=== PATIENT | male | born 1950 | race Caucasian/White ===

== ENCOUNTER 2020-05-28 13:40 | Outpatient (REF) | payer OTHER, SELFPAY | END 2020-05-28 13:41 | disposition home or self-care (01) | LOC: HO.LAB 13:40 | PROVIDERS: Visit Provider Internal Medicine | DX: Z20.828 Contact with and (suspected) exposure to other viral communicable diseases (principal) | CPT/HCPCS: 87635 ==

== ENCOUNTER → 2020-05-29 09:35 | Outpatient (BNVA) | payer OTHER, SELFPAY | PROVIDERS: PCP Family Medicine; Referring Provider Family Medicine; Visit Provider Internal Medicine Endocrinology, Diabetes & Metabolism | DX: Z13.89 Encounter for screening for other disorder (principal) | CPT/HCPCS: 99214 ==

== ENCOUNTER 2020-06-06 21:39 | Inpatient (IN) | payer OTHER, SELFPAY ==
[2020-06-06 21:45] VITALS: BP 113/40; BP 130/86; PULSE 77; RESP 26; TEMP 36.4; O2SAT 75; O2SAT 96; BMI 39.2
--- NOTE | 2020-06-06 21:46 | ECG_ITS ---
Test Reason : REPEAT Blood Pressure : / mmHG Vent. Rate : 077 BPM Atrial Rate : 077 BPM P-R Int : 194 ms QRS Dur : 086 ms QT Int : 380 ms P-R-T Axes : 078 054 046 degrees QTc Int : 430 ms Normal sinus rhythm Low voltage QRS Nonspecific T wave abnormality Abnormal ECG When compared with ECG of [id number] Nonspecific T wave abnormality now evident in Inferior leads Lateral leads Referred By: Ananya Vance Electronically Signed By:ZAY VALADEZ MD
--- NOTE | 2020-06-06 21:47 | XR_ITS ---
EXAMINATION: XR CHEST CLINICAL INFORMATION: Shortness of breath COMPARISON: Chest x-ray 06/18/2015 TECHNIQUE: Frontal view of the chest was obtained. 11:10 PM FINDINGS: Extensive bilateral airspace opacities throughout the lungs. The airspace disease is worse in the right and left lung however. There is no pleural effusion or pneumothorax. Heart size is enlarged. There are calcifications of aorta. XR/XR chest 1V IMPRESSION: Extensive bilateral airspace disease. This is most consistent with inflammatory or infectious etiology.
--- NOTE | 2020-06-06 21:51 | ED.SOB ---
HPI - SOB/Dyspnea General Chief Complaint: General Medical Stated Complaint: sob and covid Time Seen by Provider: 06/06/20 21:46 Source: patient and historic interpreter Mode of arrival: EMS Limitations: no limitations History of Present Illness HPI Narrative: This is a 70-year-old male with significant past medical history of CKD 3, hypertension, diabetes, COPD (does not use home oxygen ) and diagnosed with COVID-19 1 week ago who is brought in by EMS for acute worsening of shortness of breath since yesterday without associated fever but experiencing chills, denies nausea /vomiting / chest pain/ palpitations/abdominal pain. EMS states that on arrival patient was noted to be below 55% and was henao in appearance with some improvement in oxygenation to the 70s with 100% non-rebreather. Related Data Home Medications Medication Instructions Recorded Confirmed albuterol sulfate 90 mcg/actuation 1 puff INHALATION Q6H PRN 05/29/20 06/06/20 aerosol inhaler aspirin 81 mg tablet,delayed 81 mg PO DAILY 05/29/20 06/06/20 release atorvastatin 40 mg tablet 40 mg PO BEDTIME 05/29/20 06/06/20 blood sugar diagnostic #10 ea 05/29/20 05/29/20 calcium carbonate 600 mg (1,500 1 tab PO BID 05/29/20 06/06/20 mg)-vitamin D3 400 unit tablet carvedilol 12.5 mg tablet 12.5 mg PO BID 05/29/20 06/06/20 furosemide 20 mg tablet 20 mg PO DAILY 05/29/20 06/06/20 gabapentin 100 mg capsule 100 mg PO BID 05/29/20 06/06/20 lisinopril 5 mg tablet 5 mg PO DAILY 05/29/20 06/06/20 montelukast 10 mg tablet 10 mg PO BEDTIME 05/29/20 06/06/20 mycophenolate sodium 180 mg 540 mg PO BID 05/29/20 06/06/20 tablet,delayed release nifedipine 30 mg tablet,extended 30 mg PO BID 05/29/20 06/06/20 release 24 hr oxycodone 5 mg tablet 5 mg PO TID PRN 05/29/20 06/06/20 sennosides 8.6 mg tablet 17.2 mg PO DAILY 05/29/20 06/06/20 sertraline 100 mg tablet 100 mg PO DAILY 05/29/20 06/06/20 tacrolimus 1 mg capsule 3 mg PO DAILY 05/29/20 05/29/20 trazodone 50 mg tablet 50 mg PO BEDTIME 05/29/20 06/06/20 Previous Rx's Medication Instructions Recorded insulin lispro 100 unit/mL See Rx Instructions SUBCUT DAILY 05/07/20 subcutaneous solution 30 Days #30 ml testosterone cypionate 200 mg/mL 100 mg IM Q2W 30 Days #1.5 ml 05/28/20 intramuscular oil Allergies Allergy/AdvReac Type Severity Reaction Status Date / Time No Known Allergies Allergy Unverified 04/19/20 17:29 Crestor Allergy Unknown Uncoded 03/27/20 00:00 latex Allergy Unknown Uncoded 03/27/20 00:00 metal Allergy Unknown Uncoded 03/27/20 00:00 Review of Systems Review of Systems: Pertinent positives and negatives as stated in HPI 10 point review of systems is otherwise negative. 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 Obesity (BMI 30-39.9) Osteoporosis Surgical History History of open reduction and internal fixation (ORIF) procedure Hx of kidney transplant Family History Family History Father Diabetes Mother CVA (cerebral vascular accident) Social History Social History Alcohol intake: unknown Smoking Status: Never smoker Smoked in Last 30 Days: No Use of substances other than those prescribed or required for medical reasons: No Advance Directives: No Advance Directives Information Provided: Yes Physical Exam Vital Signs: Vital Signs: Vital Signs Temp Pulse Resp BP Pulse Ox 06/06/20 22:43 77 22 H 116/42 L 96 06/06/20 22:25 28 H 06/06/20 21:45 97.6 F 77 26 H 113/40 L 96 Body Mass Index 39.2 VITAL SIGNS: Reviewed. GENERAL: Well developed, well nourished, in no acute distress. HEAD: Normocephalic/atraumatic, EYES: PERRLA, EOMI intact without pain, no nystagmus/pallor/icterus noted EARS: Ext canals without abnormality, TMs non-bulging and non-erythematous NOSE: Nares patent bilateral OROPHARYNX: no oral lesions noted, posterior pharynx clear and non-erythematous without noted tonsillar enlargement/erythema/exudates NECK: Supple, no adenopathy LUNGS: grunting, accessory muscle use, tachypnea,+adventitious sounds and accessory muscle use. SpO2<77>On 100% non-rebreather CARDIOVASCULAR: Regular rate and rhythm without noted murmurs, no JVD or lower extremity edema. ABDOMEN: Soft, non-tender, non-distended with bowel sounds. No rigidity. No guarding. No palpable masses or hernias noted MUSCULOSKELETAL: No tenderness, deformities, or effusions noted on gross inspection. EXTREMITIES: No cyanosis, clubbing or edema; LUE: AV fistula that is not currently being used. SKIN: Inspection of the skin reveals no rashes, ulcerations, jaundice, pallor, or petechiae. NEUROLOGIC: Alert and oriented x 4. Strength and sensation to light touch were grossly intact x 4. Course Course Course Narrative: This is a 70-year-old male with history and clinical presentation most concerning for COPD exacerbation likely secondary to COVID-19 infection and will proceed with following sepsis bundle as well as placing patient on BiPAP. 2246: On review of all investigations up to this point without evidence to suggest bacterial in nature but there is a noted lymphocytosis and VBG shows pCO2 is 45 so this is also unlikely to be COPD exacerbation. 2248: I discussed the case with the nuisance wildlife specialist, Dr. Andrade, who is agreeable for admission to the ICU and requests D-dimer and ferritin levels in addition to other labs. Review of troponin is likely secondary to demand ischemia secondary to hypoxia. In addition, review of hyperkalemia is noted to be in conjunction with low sodium and chloride levels and will consider fluid resuscitation and recheck potassium levels. Hypomagnesemia will be repleted with 1 g of magnesium sulfate. MDM - SOB/Dyspnea Lab Data Result diagrams: 06/06/20 22:08 06/06/20 22:08 Labs: Lab Results 06/06/20 06/06/20 06/06/20 Range/Units 21:45 22:08 22:08 WBC 9.7 (4.8-10.8) X10*3/uL RBC 3.40 L (4.60-5.80) X10*6/uL Hgb 9.7 L (14.0-18.0) g/dl Hct 31.0 L (42-52) % MCV 91.2 (80-98) fL MCH 28.5 (27.0-33.0) pg MCHC 31.3 (31.0-36.0) g/dl RDW 13.2 (11.0-16.0) % Plt Count 259 (160-400) X10*3/uL MPV 9.0 L (9.4-12.4) fL Immature Gran % (Auto) 0.5 H (0.0-0.4) % Neut % (Auto) 92.7 H (45-73) % Lymph % (Auto) 2.8 L (20-40) % [place] % (Auto) 3.9 (2-11) % Eos % (Auto) 0.1 (0-4) % Baso % (Auto) 0.0 (0-2) % Lymph # (Auto) 0.3 L (1.2-4.9) X10*3/uL [place] # (Auto) 0.4 (0.1-1.2) X10*3/uL Eos # (Auto) 0.0 (0.0-0.4) X10*3/uL Baso # (Auto) 0.0 (0.0-0.2) X10*3/uL Abs Immat Gran (auto) 0.05 H (0.00-0.03) X10*3/uL Absolute Neuts (auto) 8.9 H (2.0-8.3) X10*3/uL Absolute Nucleated RBC 0.000 (0.0-0.012) X10*3/uL Nucleated RBC % (auto) 0.0 (0.0-0.2) /100WBC Smear Tech's Comments VERIFIED VBG pH (7.32-7.43) VBG pCO2 mmhg VBG Oxygen Liters/Min VBG pO2 mmhg VBG HCO3 mmol/L VBG O2 Saturation % VBG Base Excess mmol/L Sodium 128 L (135-145) mmol/L Potassium 6.0 H* (3.3-5.1) mmol/l Chloride 96 (96-108) mmol/L Carbon Dioxide 20 L (22-29) mmol/L Anion Gap 18 (12-20) BUN 49 H (9-16) mg/dL Creatinine 3.21 H (0.5-1.4) mg/dL Estim Creat Clear Calc 24.8 Estimated GFR 19 POC Glucose 149 H (60-115) mg/dL Random Glucose 157 H (60-115) mg/dL Lactic Acid (0.5-2.0) mmol/L Calcium 7.8 L (8.4-10.2) mg/dL Magnesium (1.6-2.6) mg/dL Ferritin 699 H (20-250) ng/mL Total Bilirubin 0.5 (0.0-1.0) mg/dL AST 27 (5-37) U/L ALT 14 (0-40) U/L Alkaline Phosphatase 74 (39-117) U/L Lactate Dehydrogenase 332 H (118-273) U/L Troponin I High Sens (<3.5-35.0) ng/L C-Reactive Protein 26.46 H (< or = 0.50) mg/dL Total Protein 6.0 L (6.5-8.0) g/dL Albumin 3.4 L (3.5-5.0) g/dL Procalcitonin ng/mL Urine Color Urine Appearance Urine pH (5.0-8.0) Ur Specific [place] (1.005-1.025) Urine Protein (NEG-TRACE) MG/DL Urine Glucose (UA) (NEG) MG/DL Urine Ketones (NEG) MG/DL Urine Blood (NEG) Urine Nitrite (NEG) Ur Leukocyte Esterase (NEG) Urine RBC (0) /HPF Urine WBC (0-4) /HPF Ur Squamous Epith Cells /LPF Amorphous Sediment /LPF Urine Bacteria /LPF 06/06/20 06/06/20 06/06/20 Range/Units 22:08 22:08 22:08 WBC (4.8-10.8) X10*3/uL RBC (4.60-5.80) X10*6/uL Hgb (14.0-18.0) g/dl Hct (42-52) % MCV (80-98) fL MCH (27.0-33.0) pg MCHC (31.0-36.0) g/dl RDW (11.0-16.0) % Plt Count (160-400) X10*3/uL MPV (9.4-12.4) fL Immature Gran % (Auto) (0.0-0.4) % Neut % (Auto) (45-73) % Lymph % (Auto) (20-40) % [place] % (Auto) (2-11) % Eos % (Auto) (0-4) % Baso % (Auto) (0-2) % Lymph # (Auto) (1.2-4.9) X10*3/uL [place] # (Auto) (0.1-1.2) X10*3/uL Eos # (Auto) (0.0-0.4) X10*3/uL Baso # (Auto) (0.0-0.2) X10*3/uL Abs Immat Gran (auto) (0.00-0.03) X10*3/uL Absolute Neuts (auto) (2.0-8.3) X10*3/uL Absolute Nucleated RBC (0.0-0.012) X10*3/uL Nucleated RBC % (auto) (0.0-0.2) /100WBC Smear Tech's Comments VBG pH (7.32-7.43) VBG pCO2 mmhg VBG Oxygen Liters/Min VBG pO2 mmhg VBG HCO3 mmol/L VBG O2 Saturation % VBG Base Excess mmol/L Sodium (135-145) mmol/L Potassium (3.3-5.1) mmol/l Chloride (96-108) mmol/L Carbon Dioxide (22-29) mmol/L Anion Gap (12-20) BUN (9-16) mg/dL Creatinine (0.5-1.4) mg/dL Estim Creat Clear Calc Estimated GFR POC Glucose (60-115) mg/dL Random Glucose (60-115) mg/dL Lactic Acid 1.3 (0.5-2.0) mmol/L Calcium (8.4-10.2) mg/dL Magnesium 1.4 L* (1.6-2.6) mg/dL Ferritin (20-250) ng/mL Total Bilirubin (0.0-1.0) mg/dL AST (5-37) U/L ALT (0-40) U/L Alkaline Phosphatase (39-117) U/L Lactate Dehydrogenase (118-273) U/L Troponin I High Sens 34.2 (<3.5-35.0) ng/L C-Reactive Protein (< or = 0.50) mg/dL Total Protein (6.5-8.0) g/dL Albumin (3.5-5.0) g/dL Procalcitonin ng/mL Urine Color Urine Appearance Urine pH (5.0-8.0) Ur Specific [place] (1.005-1.025) Urine Protein (NEG-TRACE) MG/DL Urine Glucose (UA) (NEG) MG/DL Urine Ketones (NEG) MG/DL Urine Blood (NEG) Urine Nitrite (NEG) Ur Leukocyte Esterase (NEG) Urine RBC (0) /HPF Urine WBC (0-4) /HPF Ur Squamous Epith Cells /LPF Amorphous Sediment /LPF Urine Bacteria /LPF 06/06/20 06/06/20 06/06/20 Range/Units 22:08 22:09 22:46 WBC (4.8-10.8) X10*3/uL RBC (4.60-5.80) X10*6/uL Hgb (14.0-18.0) g/dl Hct (42-52) % MCV (80-98) fL MCH (27.0-33.0) pg MCHC (31.0-36.0) g/dl RDW (11.0-16.0) % Plt Count (160-400) X10*3/uL MPV (9.4-12.4) fL Immature Gran % (Auto) (0.0-0.4) % Neut % (Auto) (45-73) % Lymph % (Auto) (20-40) % [place] % (Auto) (2-11) % Eos % (Auto) (0-4) % Baso % (Auto) (0-2) % Lymph # (Auto) (1.2-4.9) X10*3/uL [place] # (Auto) (0.1-1.2) X10*3/uL Eos # (Auto) (0.0-0.4) X10*3/uL Baso # (Auto) (0.0-0.2) X10*3/uL Abs Immat Gran (auto) (0.00-0.03) X10*3/uL Absolute Neuts (auto) (2.0-8.3) X10*3/uL Absolute Nucleated RBC (0.0-0.012) X10*3/uL Nucleated RBC % (auto) (0.0-0.2) /100WBC Smear Tech's Comments VBG pH 7.27 L (7.32-7.43) VBG pCO2 45 mmhg VBG Oxygen Liters/Min TNP VBG pO2 38 mmhg VBG HCO3 20 mmol/L VBG O2 Saturation 65.6 % VBG Base Excess -6.3 mmol/L Sodium (135-145) mmol/L Potassium (3.3-5.1) mmol/l Chloride (96-108) mmol/L Carbon Dioxide (22-29) mmol/L Anion Gap (12-20) BUN (9-16) mg/dL Creatinine (0.5-1.4) mg/dL Estim Creat Clear Calc Estimated GFR POC Glucose (60-115) mg/dL Random Glucose (60-115) mg/dL Lactic Acid (0.5-2.0) mmol/L Calcium (8.4-10.2) mg/dL Magnesium (1.6-2.6) mg/dL Ferritin (20-250) ng/mL Total Bilirubin (0.0-1.0) mg/dL AST (5-37) U/L ALT (0-40) U/L Alkaline Phosphatase (39-117) U/L Lactate Dehydrogenase (118-273) U/L Troponin I High Sens (<3.5-35.0) ng/L C-Reactive Protein (< or = 0.50) mg/dL Total Protein (6.5-8.0) g/dL Albumin (3.5-5.0) g/dL Procalcitonin 0.36 ng/mL Urine Color YELLOW Urine Appearance CLEAR Urine pH 5.0 (5.0-8.0) Ur Specific [place] 1.025 (1.005-1.025) Urine Protein 1+ H (NEG-TRACE) MG/DL Urine Glucose (UA) NEG (NEG) MG/DL Urine Ketones NEG (NEG) MG/DL Urine Blood TRACE (NEG) Urine Nitrite NEG (NEG) Ur Leukocyte Esterase NEG (NEG) Urine RBC 0-2 (0) /HPF Urine WBC 0 (0-4) /HPF Ur Squamous Epith Cells 1+ /LPF Amorphous Sediment 2+ /LPF Urine Bacteria NONE /LPF Critical Care Time Critical Care Time Critical Care Time: Yes Total Critical Care Time: 45 Attestation: I personally assessed to this time spent taking care of the patient which included review of prior documentation, labs, and imaging. In addition, patient had to be placed on BiPAP. Discharge Plan Discharge Clinical Impression: COVID-19 virus infection, Respiratory failure with hypoxia, Hypomagnesemia, Hyperkalemia Patient Disposition: Admitted As Inpatient Interventions: Admission Worksheet (ED) Last Done: 06/07/20 00:15
[2020-06-06] MEDS: Albuterol Sulfate (0.083%) 2.5 MG/3 ML VIAL.NEB 5 MG INHALE (22:15)
[2020-06-06] MEDS: Albuterol/Iprat 2.5/0.5MG 3 ML AMPUL.NEB INHALE (22:22)
--- NOTE | 2020-06-06 22:24 | PC.NURSE ---
pt via EMS from home for shortness of breath and low oxygen saturations. On arrival MD to bedside, pt placed on biPAP and saturations improved to 98. Pt awake, oriented and able to speak to staff. He denies pain.
[2020-06-06 22:25] VITALS: PULSE 74; RESP 28; O2SAT 96
[2020-06-06 22:27] LABS: Eosinophils Percent Auto 0.1 % (0-4); Hemoglobin 9.7 g/dl (14.0-18.0); Imm Gran Abs Auto 0.05 X10*3/uL (0.00-0.03); Imm Gran Pct Auto 0.5 % (0.0-0.4); Lymphocytes Absolute Auto 0.3 X10*3/uL (1.2-4.9); Lymphocytes Percent Auto 2.8 % (20-40); MANUAL DIFF FLAG SCAN; Mean Corpuscular HGB Conc 31.3 g/dl (31.0-36.0); Mean Corpuscular Hemoglobin 28.5 pg (27.0-33.0); Mean Corpuscular Volume 91.2 fL (80-98); Monocytes Absolute Auto 0.4 X10*3/uL (0.1-1.2); Monocytes Percent Auto 3.9 % (2-11); Neutrophils Absolute Auto 8.9 X10*3/uL (2.0-8.3); Neutrophils Percent Auto 92.7 % (45-73); Platelet Count 259 X10*3/uL (160-400); Red Cell Distribution Width 13.2 % (11.0-16.0); SCAN SMEAR FLAG 1; White Blood Count 9.7 X10*3/uL (4.8-10.8)
[2020-06-06 22:31] LABS: SLIDE REVIEW VERIFIED
[2020-06-06 22:32] LABS: Base Excess VBG -6.3 mmol/L; HCO3 VBG 20 mmol/L; Oxygen Saturation VBG 65.6 %; PCO2 VBG 45 mmhg; PO2 VBG 38 mmhg; pH VBG 7.27 (7.32-7.43)
[2020-06-06 22:43] VITALS: BP 116/42; PULSE 77; RESP 22; O2SAT 96
[2020-06-06 22:47] LABS: Lactic Acid 1.3 mmol/L (0.5-2.0)
[2020-06-06] MEDS: methylPREDNISolone Sod Succ/PF 125 MG/2 ML VIAL IVPUSH (22:48)
[2020-06-06 22:51] LABS: Glucose Urine UA NEG (NEG); Leukocyte Esterase Urine NEG (NEG); Nitrite Urine NEG (NEG); Specific Gravity - Urine 1.025 (1.005-1.025); Urine Blood TRACE (NEG); Urine Ketones NEG (NEG); Urine Protein 1+ MG/DL (NEG-TRACE)
[2020-06-06 22:52] LABS: Troponin-I High Sensitivity 34.2 ng/L (<3.5-35.0)
[2020-06-06 22:55] LABS: Glucose, Whole Blood 149 mg/dL (60-115)
[2020-06-06 22:56] VITALS: O2SAT 94
[2020-06-06 23:01] LABS: Appearance Urine CLEAR; Color Urine YELLOW
[2020-06-06 23:02] LABS: Magnesium 1.4 mg/dL (1.6-2.6)
[2020-06-06 23:03] LABS: Alanine Aminotransferase 14 U/L (0-40); Albumin Level 3.4 g/dL (3.5-5.0); Alkaline Phosphatase 74 U/L (39-117); Anion Gap 18 (12-20); Aspartate Amino Transferase 27 U/L (5-37); Bilirubin Total 0.5 mg/dL (0.0-1.0); Blood Urea Nitrogen 49 mg/dL (9-16); C Reactive Protein 26.46 mg/dL (< or = 0.50); Calcium 7.8 mg/dL (8.4-10.2); Carbon Dioxide 20 mmol/L (22-29); Chloride 96 mmol/L (96-108); Creatinine Clr Calc Pharmacy 24.8; Estimated Glomerular Filt Rate 19; Glucose Random 157 mg/dL (60-115); Lactate Dehydrogenase 332 U/L (118-273); Sodium 128 mmol/L (135-145)
[2020-06-06 23:10] LABS: Procalcitonin 0.36 ng/mL
[2020-06-06 23:12] LABS: RBC Urine 0-2 /HPF (0); Squamous Epithelial Cell Urine 1+ /LPF; WBC Urine 0 /HPF (0-4)
[2020-06-06 23:13] LABS: Amorphous Sediment Urine 2+ /LPF
[2020-06-06 23:23] VITALS: BP 117/46; PULSE 77; RESP 24; O2SAT 99
[2020-06-06] MEDS: Magnesium Sulfate/D5W 1 GM/100 ML PIGGYBACK IV (23:24)
[2020-06-06 23:26] LABS: Ferritin 699 ng/mL (20-250)
--- NOTE | 2020-06-06 23:43 | P.HPCC_ITS ---
History of Present Illness Date of Service: 06/06/20 Chief Complaint: short of breath Patient is [age]-year-old male who is Slovak-speaking only, with a past medical history of COVID-19 infection, CKD s/p kidney transplant in 2016, diabetes (with associated polyneuropathy & retinopathy), hypertension, dyslipidemia, osteoporosis and hypogonadism was BIBA to the ED today because he was having increased shortness of breath. EMS reports his O2 sat was 55% on room air, was henao and grunting . When he arrived at the ED, his O2 sat was 77% on 100% non rebreather. Nine days ago, he was diagnosed with COVID-19 but was not symptomatic until 2 days ago at which point, he developed a cough and slight shortness of breath. He lives at home with his 14-year-old grandson who was positive for COVID 19 a few weeks ago, which is why he got tested. He states he has been eating less for the past day but still can tolerate a small amount of fluids as he endorses some nausea today. He denies vomiting, diarrhea, body aches, fever or chills. He states he gets a headache when his blood sugar gets too low. Labs revealed WBC 9.7, Na 128, K 6.0, CO2 20, BUN 49, Cr 3.21 (baseline appears to be around 1.73), Ca 7.8, Mag 104, Ferritin 699, LDH 332, CRP 26.46, procalcitonin 0.36, urine neg for infection, VBG 7.27/45/38/20/65.6 with a base excess of -6.3. EKG NSR 77bpm, CXR showed extensive bilateral airspace disease. This is most consistent with inflammatory or infectious etiology. Lactic acid 1.3. In the ED, he was put on BiPAP at 100% FiO2 and his O2 sat is up to 98% during my bedside exam. The patient also wears a Medtronic 670G insulin pump (site on right leg) and a continuous glucose monitor (on leg). Review of Systems Review of Systems: Constitutional:no Fever, no Chills, no fatigue, no Malaise ENT/Mouth: no sore throat, no runny nose Eyes: No Discharge Cardiovascular: No Chest Pain, No palpitations Respiratory: + Cough, No Sputum, + Dyspnea Gastrointestinal: +Nausea, No Vomiting, No Diarrhea Genitourinary: no irregular bleeding, No Dysuria, No Urinary Frequency, No Hematuria, No Urinary Incontinence, No Urgency, No Flank Pain, Musculoskeletal: no Myalgia Skin: No rash Neuro: No Headache Yes all other systems are reviewed and are negative FOR[facility]LY [facility], [facility] Past Medical History Medical History (Updated 06/07/20 @ 07:58 by MOHSEN Rodríguez) CKD stage 3 due to type 2 diabetes mellitus Diabetic nephropathy associated with type 2 diabetes mellitus Diabetic polyneuropathy associated with type 2 diabetes mellitus Diabetic retinopathy associated with type 2 diabetes mellitus Dyslipidemia History of amputation of toe Hypertension Hypogonadism male shelter (current) use of insulin Obesity (BMI 30-39.9) Osteoporosis Family History Family History Father Diabetes Mother CVA (cerebral vascular accident) Surgical History Surgical History History of open reduction and internal fixation (ORIF) procedure Hx of kidney transplant Social History Social History Alcohol intake: unknown Smoking Status: Never smoker Smoked in Last 30 Days: No Use of substances other than those prescribed or required for medical reasons: No Currently Displaying Signs/Symptoms of Drug Intoxication Withdrawal: No Advance Directives: No Advance Directives Information Provided: Yes Do you have thoughts of harming others: None Do you have a plan to hurt others: No Plan Meds Allergies Allergy/AdvReac Type Severity Reaction Status Date / Time No Known Allergies Allergy Unverified 04/19/20 17:29 Crestor Allergy Unknown Uncoded 03/27/20 00:00 latex Allergy Unknown Uncoded 03/27/20 00:00 metal Allergy Unknown Uncoded 03/27/20 00:00 Home Medications Medication Instructions Recorded Confirmed Type albuterol sulfate 90 mcg/actuation 1 puff INHALATION Q6H PRN 05/29/20 06/06/20 History aerosol inhaler aspirin 81 mg tablet,delayed 81 mg PO DAILY 05/29/20 06/06/20 History release atorvastatin 40 mg tablet 40 mg PO BEDTIME 05/29/20 06/06/20 History blood sugar diagnostic #10 ea 05/29/20 05/29/20 History calcium carbonate 600 mg (1,500 1 tab PO BID 05/29/20 06/06/20 History mg)-vitamin D3 400 unit tablet carvedilol 12.5 mg tablet 12.5 mg PO BID 05/29/20 06/06/20 History furosemide 20 mg tablet 20 mg PO DAILY 05/29/20 06/06/20 History gabapentin 100 mg capsule 100 mg PO BID 05/29/20 06/06/20 History lisinopril 5 mg tablet 5 mg PO DAILY 05/29/20 06/06/20 History montelukast 10 mg tablet 10 mg PO BEDTIME 05/29/20 06/06/20 History mycophenolate sodium 180 mg 540 mg PO BID 05/29/20 06/06/20 History tablet,delayed release nifedipine 30 mg tablet,extended 30 mg PO BID 05/29/20 06/06/20 History release 24 hr oxycodone 5 mg tablet 5 mg PO TID PRN 05/29/20 06/06/20 History sennosides 8.6 mg tablet 17.2 mg PO DAILY 05/29/20 06/06/20 History sertraline 100 mg tablet 100 mg PO DAILY 05/29/20 06/06/20 History tacrolimus 1 mg capsule 3 mg PO DAILY 05/29/20 05/29/20 History trazodone 50 mg tablet 50 mg PO BEDTIME 05/29/20 06/06/20 History Physical Exam Vital Signs: Vital Signs: Vital Signs Temp Pulse Resp BP Pulse Ox 06/06/20 23:23 77 24 H 117/46 L 99 06/06/20 22:43 77 22 H 116/42 L 96 06/06/20 22:25 28 H 06/06/20 21:45 97.6 F 77 26 H 113/40 L 96 Body Mass Index 39.2 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 Slovak, used billet header) HENMT: Other: wearing a BiPAP mask Head: Yes normal to inspection Eyes: General: appearance normal, both eyes and all related structures EOM: EOMs intact bilaterally Neck: Neck: Yes normal visual inspection, Yes full ROM and Yes supple Resp: Effort & Inspection: normal respiratory effort (on Bipap) and able to speak in complete sentences Auscultation: bronchovesicular breath sounds Cardio: Rate: regular rate Rhythm: regular rhythm Heart sounds: normal S1 and S2 GI: Inspection: Yes obesity Palpation (GI): Soft to palpation and nontender Auscultation: normal bowel sounds Skin: General skin exam: no rashes or lesions noted Neuro: General: patient oriented x3 Cognition (Neuro): normal cognition Extrem: Other: has CGM on leg, fistula on left arm General: Yes normal to inspection and Yes no pedal edema Results Labs Labs: Laboratory Tests 06/06/20 06/06/20 06/06/20 21:45 22:08 22:08 WBC 9.7 RBC 3.40 L Hgb 9.7 L Hct 31.0 L MCV 91.2 MCH 28.5 MCHC 31.3 RDW 13.2 Plt Count 259 MPV 9.0 L Immature Gran % (Auto) 0.5 H Neut % (Auto) 92.7 H Lymph % (Auto) 2.8 L [place] % (Auto) 3.9 Eos % (Auto) 0.1 Baso % (Auto) 0.0 Lymph # (Auto) 0.3 L [place] # (Auto) 0.4 Eos # (Auto) 0.0 Baso # (Auto) 0.0 Abs Immat Gran (auto) 0.05 H Absolute Neuts (auto) 8.9 H Absolute Nucleated RBC 0.000 Nucleated RBC % (auto) 0.0 Smear Tech's Comments VERIFIED VBG pH VBG pCO2 VBG Oxygen Liters/Min VBG pO2 VBG HCO3 VBG O2 Saturation VBG Base Excess Sodium 128 L Potassium 6.0 H* Chloride 96 Carbon Dioxide 20 L Anion Gap 18 BUN 49 H Creatinine 3.21 H Estim Creat Clear Calc 24.8 Estimated GFR 19 POC Glucose 149 H Random Glucose 157 H Lactic Acid Calcium 7.8 L Magnesium Ferritin 699 H Total Bilirubin 0.5 AST 27 ALT 14 Alkaline Phosphatase 74 Lactate Dehydrogenase 332 H Troponin I High Sens C-Reactive Protein 26.46 H Total Protein 6.0 L Albumin 3.4 L Procalcitonin Urine Color Urine Appearance Urine pH Ur Specific [place] Urine Protein Urine Glucose (UA) Urine Ketones Urine Blood Urine Nitrite Ur Leukocyte Esterase Urine RBC Urine WBC Ur Squamous Epith Cells Amorphous Sediment Urine Bacteria 06/06/20 06/06/20 06/06/20 22:08 22:08 22:08 WBC RBC Hgb Hct MCV MCH MCHC RDW Plt Count MPV Immature Gran % (Auto) Neut % (Auto) Lymph % (Auto) [place] % (Auto) Eos % (Auto) Baso % (Auto) Lymph # (Auto) [place] # (Auto) Eos # (Auto) Baso # (Auto) Abs Immat Gran (auto) Absolute Neuts (auto) Absolute Nucleated RBC Nucleated RBC % (auto) Smear Tech's Comments VBG pH VBG pCO2 VBG Oxygen Liters/Min VBG pO2 VBG HCO3 VBG O2 Saturation VBG Base Excess Sodium Potassium Chloride Carbon Dioxide Anion Gap BUN Creatinine Estim Creat Clear Calc Estimated GFR POC Glucose Random Glucose Lactic Acid 1.3 Calcium Magnesium 1.4 L* Ferritin Total Bilirubin AST ALT Alkaline Phosphatase Lactate Dehydrogenase Troponin I High Sens 34.2 C-Reactive Protein Total Protein Albumin Procalcitonin Urine Color Urine Appearance Urine pH Ur Specific [place] Urine Protein Urine Glucose (UA) Urine Ketones Urine Blood Urine Nitrite Ur Leukocyte Esterase Urine RBC Urine WBC Ur Squamous Epith Cells Amorphous Sediment Urine Bacteria 06/06/20 06/06/20 06/06/20 22:08 22:09 22:46 WBC RBC Hgb Hct MCV MCH MCHC RDW Plt Count MPV Immature Gran % (Auto) Neut % (Auto) Lymph % (Auto) [place] % (Auto) Eos % (Auto) Baso % (Auto) Lymph # (Auto) [place] # (Auto) Eos # (Auto) Baso # (Auto) Abs Immat Gran (auto) Absolute Neuts (auto) Absolute Nucleated RBC Nucleated RBC % (auto) Smear Tech's Comments VBG pH 7.27 L VBG pCO2 45 VBG Oxygen Liters/Min TNP VBG pO2 38 VBG HCO3 20 VBG O2 Saturation 65.6 VBG Base Excess -6.3 Sodium Potassium Chloride Carbon Dioxide Anion Gap BUN Creatinine Estim Creat Clear Calc Estimated GFR POC Glucose Random Glucose Lactic Acid Calcium Magnesium Ferritin Total Bilirubin AST ALT Alkaline Phosphatase Lactate Dehydrogenase Troponin I High Sens C-Reactive Protein Total Protein Albumin Procalcitonin 0.36 Urine Color YELLOW Urine Appearance CLEAR Urine pH 5.0 Ur Specific [place] 1.025 Urine Protein 1+ H Urine Glucose (UA) NEG Urine Ketones NEG Urine Blood TRACE Urine Nitrite NEG Ur Leukocyte Esterase NEG Urine RBC 0-2 Urine WBC 0 Ur Squamous Epith Cells 1+ Amorphous Sediment 2+ Urine Bacteria NONE Assessment and Plan (1) COVID-19 virus infection: Status: Acute patient appears to be on day 2 of his symptoms, will follow COVID-19 guidelines, was given 125mg Solumedrol in ED. Elevated covid marker labs, continue to monitor. Upon arrival to the ICU, the patient developed a fever of 102.2. This is not sepsis, this is likely due to Covid infection. Will give Covid-19 protocol meds. (2) Respiratory failure with hypoxia: Qualifiers: Chronicity: acute Qualified Code(s): J96.01 - Acute respiratory failure with hypoxia Status: Acute continue BiPAP, transition to high flow this morning (3) Hypomagnesemia: Status: Acute 1gm Mag given in ED, 1mg Mag given upon arrival to ICU, will monitor (4) Hypertension: Status: Chronic Continue home meds, monitor (5) Diabetes mellitus type 2, with complication, on salvage determiner insulin pump: Status: Chronic Keep CGM and pump on but stop insulin delivery of pump, change to Lantus and Humalog. (6) Acute hyperkalemia: Problem details: 6.0 mmol/L Status: Acute ED tx'd with insulin and Dextrose. Pt also getting 1L NS. Will monitor (7) PRICILLA (acute kidney injury): Status: Acute Renal consult. Baseline Cr around 1.78-2.3, elevated to 3.21 today. avoid nephrotoxic drugs, monitor renal indices, pt had Kidney transplant 2016 and no longer requires dialysis but still has the fistula in his left arm (8) Hyponatremia: Problem details: 126 mmol/L Status: Acute gave 1L NS (9) Hypophosphatemia: Problem details: 2.0 Status: Acute Replete
[2020-06-07] VITALS (35 sets, daily range): BP systolic 110–133; BP diastolic 42–67; PULSE 72–95; RESP 18–39; TEMP 36.3–39; O2SAT 87–95; BMI 32.9
--- NOTE | 2020-06-07 | XR_ITS ---
EXAMINATION: XR CHEST CLINICAL INFORMATION: Central line placement COMPARISON: Chest radiographs 06/06/2020, 06/18/2015 TECHNIQUE: Portable upright AP view of the chest was obtained. FINDINGS: Right internal jugular central venous line tip is at the superior vena cava/right atrial confluence. There is no pneumothorax. Diffuse bilateral patchy airspace opacities are slightly increased from prior study 06/06/2020. No effusion. The visualized cardiac and hilar and mediastinal contours and bony structures are stable. XR/XR chest 1V IMPRESSION: 1. Right internal jugular central venous line tip at superior vena cava/right atrial confluence. 2. No pneumothorax. Diffuse bilateral patchy airspace opacities slightly increased.
[2020-06-07] MEDS: 0.9 % Sodium Chloride Flush 3 ML SYRINGE IVFLUSH ×3 (00:55→15:30)
[2020-06-07] MEDS: Thiamine HCL 200 MG in 0.9 % Sodium Chloride 100 ML 204 MG IV (01:03)
[2020-06-07] MEDS: Melatonin 3 MG TABLET 10 MG PO (01:04)
[2020-06-07] MEDS: Magnesium Sulfate/D5W 1 GM/100 ML PIGGYBACK IV (01:04)
[2020-06-07 02:16] LABS: D Dimer 609 NG/ML
[2020-06-07] MEDS: Insulin Glargine,Hum.rec.anlog 100 UNIT/ML 10 ML VIAL 10 UNIT SUBCUT ×2 (02:29→07:40)
[2020-06-07 02:36] LABS: Anion Gap 20 (12-20); Blood Urea Nitrogen 49 mg/dL (9-16); Calcium 7.4 mg/dL (8.4-10.2); Carbon Dioxide 15 mmol/L (22-29); Chloride 97 mmol/L (96-108); Creatinine Clr Calc Pharmacy 24.5; Estimated Glomerular Filt Rate 21; Glucose Random 255 mg/dL (60-115); Magnesium 2.2 mg/dL (1.6-2.6); Potassium 5.6 mmol/l (3.3-5.1); Sodium 126 mmol/L (135-145)
[2020-06-07] MEDS: Sodium Bicarbonate 8.4% 50 MEQ/50 ML SYRINGE IVPUSH (03:22)
[2020-06-07] MEDS: 0.9 % Sodium Chloride 1,000 ML 999 ML IVCONT (03:22)
[2020-06-07] MEDS: Enoxaparin Sodium 60 MG/0.6 ML SYRINGE 45 MG SUBCUT ×2 (04:49→15:29)
[2020-06-07 06:20] LABS: Base Excess VBG -7.6 mmol/L; HCO3 VBG 15 mmol/L; Oxygen Saturation VBG 94.3 %; PCO2 VBG 23 mmhg; PO2 VBG 89 mmhg; pH VBG 7.43 (7.32-7.43)
[2020-06-07 06:22] LABS: Basophils Percent Auto 0.1 % (0-2); Hematocrit 30.1 % (42-52); Hemoglobin 9.4 g/dl (14.0-18.0); Imm Gran Abs Auto 0.06 X10*3/uL (0.00-0.03); Imm Gran Pct Auto 0.5 % (0.0-0.4); Lymphocytes Absolute Auto 0.2 X10*3/uL (1.2-4.9); Lymphocytes Percent Auto 1.4 % (20-40); MANUAL DIFF FLAG SCAN; Mean Corpuscular HGB Conc 31.2 g/dl (31.0-36.0); Mean Corpuscular Hemoglobin 28.7 pg (27.0-33.0); Mean Platelet Volume 9.4 fL (9.4-12.4); Monocytes Absolute Auto 0.2 X10*3/uL (0.1-1.2); Monocytes Percent Auto 1.8 % (2-11); Neutrophils Percent Auto 96.2 % (45-73); Platelet Count 255 X10*3/uL (160-400); Red Blood Count 3.27 X10*6/uL (4.60-5.80); Red Cell Distribution Width 13.1 % (11.0-16.0); SCAN SMEAR FLAG 1; White Blood Count 12.5 X10*3/uL (4.8-10.8)
--- NOTE | 2020-06-07 06:24 | PC.NURSE ---
ADMIT TO 254-1...BIPAP 14/6--FIO2 100% AT ADMISSION...SAO2 96%...TACHYPNEIC/SIMPSON...RR 30'S...SWALLOWED PO MEDS PER EMAR W/O DIFFICULTY...FIO2 WEANED TO 80%...SAO2 GOAL PER ICU OPERATIONS DEVELOPER= >88%...Ve 14-17 l/m...ROSS CATHETER LEAKING AT ADMISSION...REPOSITIONED W/O EFFECT...ROSS D/C'D...PATIENTED REFUSED RE-INSERTION...VOIDING 100ml YELLOW URINE PER VOID...DESATS TO 86-87% WITH MINIMAL ACTIVITY WITH SLOW RECOVERY...K-PO4 IV BOLUS INFUSING--NaHCO3 50 MEQ IV X1--NS 0.9% 1000ml BOLUS GIVEN...BP/HR STABLE
[2020-06-07] MEDS: Famotidine 20 MG TABLET PO ×2 (07:40→20:43)
[2020-06-07] MEDS: Atorvastatin Calcium 80 MG TABLET PO (07:40)
[2020-06-07 07:41] LABS: Calcium 7.2 mg/dL (8.4-10.2)
[2020-06-07 07:43] LABS: Anion Gap 17 (12-20); Blood Urea Nitrogen 48 mg/dL (9-16); Calcium 7.2 mg/dL (8.4-10.2); Carbon Dioxide 16 mmol/L (22-29); Chloride 99 mmol/L (96-108); Creatinine Clr Calc Pharmacy 26.6; Estimated Glomerular Filt Rate 23; Glucose Random 328 mg/dL (60-115); Potassium 4.7 mmol/l (3.3-5.1); Sodium 127 mmol/L (135-145)
[2020-06-07] MEDS: Insulin Lispro 100 UNIT/ML 3 ML VIAL SUBCUT (07:46)
[2020-06-07 08:11] LABS: Glucose, Whole Blood 336 mg/dL (60-115)
[2020-06-07] MEDS: HYDROmorphone HCl 0.5 MG/0.5 ML SYRINGE IVPUSH ×3 (09:45→22:33)
[2020-06-07] MEDS: Insulin Regular/NS 100 UNIT/100 ML PLAST..BAG IVCONT (09:52)
[2020-06-07 11:26] LABS: Base Excess VBG -7.1 mmol/L; Blood Gas Serial # 5414; HCO3 VBG 18 mmol/L; Oxygen Saturation VBG 78.8 %; PCO2 VBG 35 mmhg; PO2 VBG 46 mmhg; pH VBG 7.34 (7.32-7.43)
[2020-06-07 11:34] LABS: Glucose, Whole Blood 354 mg/dL (60-115)
--- NOTE | 2020-06-07 11:49 | W.PM.CCHP ---
Procedures Central Line Placement Right IJ: Central Line Comments: PROCEDURE: Insertion right internal jugular triple lumen central venous catheter. INDICATION: Venous access. ANESTHESIA: Local plus IV Dilaudid. PROCEDURE: Vascular ultrasound was used to examine the right neck. A large compressible internal jugular vein was noted, lateral to the carotid artery. The right neck was widely prepped and draped in full sterile fashion. Local anesthesia was applied to the RIJV insertion site. Under US guidance, the right IJ vein was cannulated on the 1st pass of the 18 g thin wall needle, w return of dark, non-pulsatile blood. The wire was threaded without incident. The 16cm x 7 [place] triple-lumen CVC was advanced into the vein up to the hub via the Seldinger technique without incident. There was good blood return x3. The catheter was sutured x3 and a Biopatch and dry sterile dressing were applied. Postop chest x-ray showed the line in good position with no pneumothorax. The patient tolerated the procedure well w no complications. Consent for Procedure: Elective - informed consent obtained
--- NOTE | 2020-06-07 11:54 | PC.NURSE ---
On patient assessment, patient A&Ox4 via [facility]. SR/WAP on tele. BP stable. Problem: Patient on bipap at 14/6 with fio2 of 80% but patient having increased WOB, accessory muscle use and belly breathing noted. RR in the 30s. O2 sat 88-90% but with activity down to 70%. Patient orthopneic and stating he feels tired. Per MD, RT placed patient on HFNC 60 L with 100%fio2, with minimal effect on O2 sat. Per MD, 100% non rebreather also applied. O2 sat imrpoved to 91%. Per MD, administered two does of 0.5mg IV Dilaudid. RR decreased for 30 to 25. Patient remains on HFNC and 100% non rebreather. Will cont to monitor O2 sat, RR/effort.
--- NOTE | 2020-06-07 12:07 | PC.NURSE ---
obtained informed consent from patient for central line placement. 7 F 16 cm triple lumen placed to right IJ. Patient tolerated procedure well, evaluated with use of dance instructor. VSS, SR/FERNANDOP on tele.
--- NOTE | 2020-06-07 12:11 | PC.NURSE ---
Patient is an insulin dependent diabetic and uses an insulin pump at home. Insulin pump removed by night RN. 0800 POC 336. Administered ordered 10 units Lantus and 8 units of SS humalog per protocol. 1100 POC 354, MD aware. Per MD started patient on insulin drip at 4 units/hr. POC recheck due at 1300 per MD. Oncoming RN to check POC and report to MD.
--- NOTE | 2020-06-07 13:06 | CA_ITS ---
Transthoracic Echocardiogram Patient (Last, First, Middle): Georges Delong, Gender: Male Date of : 1950 Age: 70 Procedure Date: 06/07/2020 Procedure Type: Transthoracic Echocardiogram Location: ICU Height: 165.1 cm Weight: 34.93 kg BSA: 1.32 m2 Heart Rate: bpm BP: 114 / 54 mmHg Toolsmith: MERRICK Referring MD: Douglas Andrade Symptoms: Acute respiratory failure, presumably COVID. Rule out CHF. Conclusions: - Normal left ventricular size and systolic function. The visually estimated ejection fraction is between 60-65%. - Normal right ventricular cavity size and systolic function. - Significantly elevated right atrial pressure. Moderate pulmonary hypertension is present. - There is a normal trileaflet aortic valve. No Doppler assessment of valve was performed. Findings Left Ventricle Normal left ventricular size and systolic function. The visually estimated ejection fraction is between 60-65%. Regional wall motion abnormalities can not be excluded due to suboptimal endocardial definition. Diastolic function is indeterminate on the basis of available data. Right Ventricle Normal right ventricular cavity size and systolic function. Atria The left atrium was not well visualized. Aortic Valve There is a normal trileaflet aortic valve. Mitral Valve There is mild mitral annular calcification. There is no mitral valve regurgitation. There is no mitral valve stenosis. Pulmonic Valve Normal pulmonic valve structure and function. There is trace pulmonic valve regurgitation. Tricuspid Valve Normal tricuspid valve structure and function. There is trace tricuspid valve regurgitation. Significantly elevated right atrial pressure. Moderate pulmonary hypertension is present. Great Vessels All visible segments of the aorta are normal in size. The visualized portions of the pulmonary artery and branches are normal. Venous The inferior vena cava is dilated and does not collapse with inspiration. Pericardium/Pleural There is no evidence of pericardial effusion. Prior Study Comparison No significant change compared to prior study dated: 06/11/2009. Measurements Tricuspid Valve TR Pk Kelvin: 3.09 TR Pk Grad: 38.00 RA Press: 15.00 RVSP: 53.00 Updated in Other Vendor System with Status of Final Mikey Ruelas MD electronically signed on 06/07/2020 3:26:20 PM with status of Final
[2020-06-07] MEDS: Thiamine HCL 200 MG in 0.9 % Sodium Chloride 100 ML IV (13:14)
[2020-06-07 13:29] LABS: Glucose, Whole Blood 223 mg/dL (60-115)
[2020-06-07 14:06] LABS: B Type Natriuretic Peptide 888 pg/mL (<100)
--- NOTE | 2020-06-07 14:32 | PC.NURSE ---
SR, WAP B/P WNL 100%NRM AND 60LITER 100% HIGHFLOW O2 IN USE. PT IS ORTHOPNIC AND DOES NOT TOLERATE MOVEMENT WITHOUT DESATURATION MD AWARE CXR RESULTS DISCUSSED, ECHO IN PROGRESS BNP ELEVATED MD AWARE.
--- NOTE | 2020-06-07 14:37 | P.PNCC_ITS ---
Subjective Subjective Date of Service: 06/07/20 Interval History: 70-year-old male presents with severe advanced stage COVID-19 pneumonia. The patient has DM on insulin pump, HTN, CKD, s/p kidney transplant in 2016, hypertension, dyslipidemia, osteoporosis and hypogonadism. Tested positive for COVID on May 28, reportedly bec family member had it. Started have symptoms 3 days ago, w cough and SOB. BIBA to the ED last nite because he was having increased shortness of breath, decr po intake. EMS reported sat was 55% on room air, was henao and grunting . When he arrived at the ED, his O2 sat was 77% on 100% non rebreather. Febrile to 102?. CXR showed severe COVID pneumonia, right side worse than left. Labs revealed notable for WBC 9.7, K 6.0, CO2 20, BUN/creat 49/3.2 (baseline 1.7), Ferritin 699, LDH 332, CRP 26.46, procalcitonin 0.36, lactic acid 1.3. In the ED, he was put on BiPAP at 100% FiO2. Sat up to high 90?s. Admitted to ICU and changed to 90% HFNC, w sat 90%. We started him on the full EVSD COVID protocol, include Solu-Medrol 80 mg bid. Placed a triple lumen catheter. F/U CXR shows much worse infiltrates bilat. Could also be pulmon edema. BNP is 888. I viewed the echo done by the tech at the bedside: - LV fxn difficult to say, even w Diffinity. EF prob 60%. - LV cavity size prob normal. - RV cavity size top normal - Tricuspid jet 3.4m/sec, gradient 46mm - IVC dilated w minimal insp collapse. RVSP estimate therefore about 60 mm. Patient is now on HFNC 60L/100% plus NRBFM on flush, w Sat 91% Discussed with Dr. Jackson. We?ll bolus him with Bumex now and go with IV drip if nec. Critical care time (mult extended visits to the bedside to eval breathing; excluding procedures): 30+ min. Physical Exam Vital Signs: Vital Signs: Last Vital Signs Temp 97.4 F 06/07/20 11:48 Pulse 74 06/07/20 14:00 Resp 18 06/07/20 14:00 BP 114/54 L 06/07/20 14:00 Pulse Ox 87 L 06/07/20 14:00 Body Mass Index 32.9 Objective Data Labs CBC & Chem 7: 06/08/20 04:10 06/08/20 04:10 Labs: Laboratory Results - last 24 hr 06/06/20 06/06/20 06/06/20 21:45 22:08 22:08 WBC 9.7 RBC 3.40 L Hgb 9.7 L Hct 31.0 L MCV 91.2 MCH 28.5 MCHC 31.3 RDW 13.2 Plt Count 259 MPV 9.0 L Immature Gran % (Auto) 0.5 H Neut % (Auto) 92.7 H Lymph % (Auto) 2.8 L [place] % (Auto) 3.9 Eos % (Auto) 0.1 Baso % (Auto) 0.0 Lymph # (Auto) 0.3 L [place] # (Auto) 0.4 Eos # (Auto) 0.0 Baso # (Auto) 0.0 Abs Immat Gran (auto) 0.05 H Absolute Neuts (auto) 8.9 H Absolute Nucleated RBC 0.000 Nucleated RBC % (auto) 0.0 Smear Tech's Comments VERIFIED D-Dimer VBG pH VBG pCO2 VBG Oxygen Liters/Min VBG pO2 VBG HCO3 VBG O2 Saturation VBG Base Excess Sodium 128 L Potassium 6.0 H* Chloride 96 Carbon Dioxide 20 L Anion Gap 18 BUN 49 H Creatinine 3.21 H Estim Creat Clear Calc 24.8 Estimated GFR 19 POC Glucose 149 H Random Glucose 157 H Lactic Acid Calcium 7.8 L Phosphorus Magnesium Ferritin 699 H Total Bilirubin 0.5 AST 27 ALT 14 Alkaline Phosphatase 74 Lactate Dehydrogenase 332 H Troponin I High Sens C-Reactive Protein 26.46 H B-Natriuretic Peptide Total Protein 6.0 L Albumin 3.4 L Procalcitonin Urine Color Urine Appearance Urine pH Ur Specific [place] Urine Protein Urine Glucose (UA) Urine Ketones Urine Blood Urine Nitrite Ur Leukocyte Esterase Urine RBC Urine WBC Ur Squamous Epith Cells Amorphous Sediment Urine Bacteria 06/06/20 06/06/20 06/06/20 22:08 22:08 22:08 WBC RBC Hgb Hct MCV MCH MCHC RDW Plt Count MPV Immature Gran % (Auto) Neut % (Auto) Lymph % (Auto) [place] % (Auto) Eos % (Auto) Baso % (Auto) Lymph # (Auto) [place] # (Auto) Eos # (Auto) Baso # (Auto) Abs Immat Gran (auto) Absolute Neuts (auto) Absolute Nucleated RBC Nucleated RBC % (auto) Smear Tech's Comments D-Dimer VBG pH VBG pCO2 VBG Oxygen Liters/Min VBG pO2 VBG HCO3 VBG O2 Saturation VBG Base Excess Sodium Potassium Chloride Carbon Dioxide Anion Gap BUN Creatinine Estim Creat Clear Calc Estimated GFR POC Glucose Random Glucose Lactic Acid 1.3 Calcium Phosphorus Magnesium 1.4 L* Ferritin Total Bilirubin AST ALT Alkaline Phosphatase Lactate Dehydrogenase Troponin I High Sens 34.2 C-Reactive Protein B-Natriuretic Peptide Total Protein Albumin Procalcitonin Urine Color Urine Appearance Urine pH Ur Specific [place] Urine Protein Urine Glucose (UA) Urine Ketones Urine Blood Urine Nitrite Ur Leukocyte Esterase Urine RBC Urine WBC Ur Squamous Epith Cells Amorphous Sediment Urine Bacteria 06/06/20 06/06/20 06/06/20 22:08 22:09 22:46 WBC RBC Hgb Hct MCV MCH MCHC RDW Plt Count MPV Immature Gran % (Auto) Neut % (Auto) Lymph % (Auto) [place] % (Auto) Eos % (Auto) Baso % (Auto) Lymph # (Auto) [place] # (Auto) Eos # (Auto) Baso # (Auto) Abs Immat Gran (auto) Absolute Neuts (auto) Absolute Nucleated RBC Nucleated RBC % (auto) Smear Tech's Comments D-Dimer VBG pH 7.27 L VBG pCO2 45 VBG Oxygen Liters/Min TNP VBG pO2 38 VBG HCO3 20 VBG O2 Saturation 65.6 VBG Base Excess -6.3 Sodium Potassium Chloride Carbon Dioxide Anion Gap BUN Creatinine Estim Creat Clear Calc Estimated GFR POC Glucose Random Glucose Lactic Acid Calcium Phosphorus Magnesium Ferritin Total Bilirubin AST ALT Alkaline Phosphatase Lactate Dehydrogenase Troponin I High Sens C-Reactive Protein B-Natriuretic Peptide Total Protein Albumin Procalcitonin 0.36 Urine Color YELLOW Urine Appearance CLEAR Urine pH 5.0 Ur Specific [place] 1.025 Urine Protein 1+ H Urine Glucose (UA) NEG Urine Ketones NEG Urine Blood TRACE Urine Nitrite NEG Ur Leukocyte Esterase NEG Urine RBC 0-2 Urine WBC 0 Ur Squamous Epith Cells 1+ Amorphous Sediment 2+ Urine Bacteria NONE 06/07/20 06/07/20 06/07/20 02:00 02:00 05:53 WBC 12.5 H RBC 3.27 L Hgb 9.4 L Hct 30.1 L MCV 92.0 MCH 28.7 MCHC 31.2 RDW 13.1 Plt Count 255 MPV 9.4 Immature Gran % (Auto) 0.5 H Neut % (Auto) 96.2 H Lymph % (Auto) 1.4 L [place] % (Auto) 1.8 L Eos % (Auto) 0.0 Baso % (Auto) 0.1 Lymph # (Auto) 0.2 L [place] # (Auto) 0.2 Eos # (Auto) 0.0 Baso # (Auto) 0.0 Abs Immat Gran (auto) 0.06 H Absolute Neuts (auto) 12.0 H Absolute Nucleated RBC 0.000 Nucleated RBC % (auto) 0.0 Smear Tech's Comments D-Dimer 609 VBG pH VBG pCO2 VBG Oxygen Liters/Min VBG pO2 VBG HCO3 VBG O2 Saturation VBG Base Excess Sodium 126 L Potassium 5.6 H Chloride 97 Carbon Dioxide 15 L Anion Gap 20 BUN 49 H Creatinine 2.96 H Estim Creat Clear Calc 24.5 Estimated GFR 21 POC Glucose Random Glucose 255 H D Lactic Acid Calcium 7.4 L Phosphorus 2.0 L Magnesium 2.2 Ferritin Total Bilirubin AST ALT Alkaline Phosphatase Lactate Dehydrogenase Troponin I High Sens C-Reactive Protein B-Natriuretic Peptide Total Protein Albumin Procalcitonin Urine Color Urine Appearance Urine pH Ur Specific [place] Urine Protein Urine Glucose (UA) Urine Ketones Urine Blood Urine Nitrite Ur Leukocyte Esterase Urine RBC Urine WBC Ur Squamous Epith Cells Amorphous Sediment Urine Bacteria 06/07/20 06/07/20 06/07/20 05:53 05:53 07:10 WBC RBC Hgb Hct MCV MCH MCHC RDW Plt Count MPV Immature Gran % (Auto) Neut % (Auto) Lymph % (Auto) [place] % (Auto) Eos % (Auto) Baso % (Auto) Lymph # (Auto) [place] # (Auto) Eos # (Auto) Baso # (Auto) Abs Immat Gran (auto) Absolute Neuts (auto) Absolute Nucleated RBC Nucleated RBC % (auto) Smear Tech's Comments D-Dimer VBG pH 7.43 VBG pCO2 23 VBG Oxygen Liters/Min Not Reportable VBG pO2 89 VBG HCO3 15 VBG O2 Saturation 94.3 VBG Base Excess -7.6 Sodium Cancelled 127 L Potassium Cancelled 4.7 Chloride Cancelled 99 Carbon Dioxide Cancelled 16 L Anion Gap Cancelled 17 BUN Cancelled 48 H Creatinine Cancelled 2.73 H Estim Creat Clear Calc Cancelled 26.6 Estimated GFR Cancelled 23 POC Glucose Random Glucose Cancelled 328 H Lactic Acid Calcium Cancelled 7.2 L Phosphorus Cancelled Magnesium Cancelled 2.0 Ferritin Total Bilirubin AST ALT Alkaline Phosphatase Lactate Dehydrogenase Troponin I High Sens C-Reactive Protein B-Natriuretic Peptide Total Protein Albumin Procalcitonin Urine Color Urine Appearance Urine pH Ur Specific [place] Urine Protein Urine Glucose (UA) Urine Ketones Urine Blood Urine Nitrite Ur Leukocyte Esterase Urine RBC Urine WBC Ur Squamous Epith Cells Amorphous Sediment Urine Bacteria 06/07/20 06/07/20 06/07/20 07:10 07:44 11:12 WBC RBC Hgb Hct MCV MCH MCHC RDW Plt Count MPV Immature Gran % (Auto) Neut % (Auto) Lymph % (Auto) [place] % (Auto) Eos % (Auto) Baso % (Auto) Lymph # (Auto) [place] # (Auto) Eos # (Auto) Baso # (Auto) Abs Immat Gran (auto) Absolute Neuts (auto) Absolute Nucleated RBC Nucleated RBC % (auto) Smear Tech's Comments D-Dimer VBG pH VBG pCO2 VBG Oxygen Liters/Min VBG pO2 VBG HCO3 VBG O2 Saturation VBG Base Excess Sodium Potassium Chloride Carbon Dioxide Anion Gap BUN Creatinine Estim Creat Clear Calc Estimated GFR POC Glucose 336 H 354 H* Random Glucose Lactic Acid Calcium 7.2 L Phosphorus 3.0 Magnesium Ferritin Total Bilirubin AST ALT Alkaline Phosphatase Lactate Dehydrogenase Troponin I High Sens C-Reactive Protein B-Natriuretic Peptide Total Protein Albumin Procalcitonin Urine Color Urine Appearance Urine pH Ur Specific [place] Urine Protein Urine Glucose (UA) Urine Ketones Urine Blood Urine Nitrite Ur Leukocyte Esterase Urine RBC Urine WBC Ur Squamous Epith Cells Amorphous Sediment Urine Bacteria 06/07/20 06/07/20 06/07/20 11:13 13:00 13:11 WBC RBC Hgb Hct MCV MCH MCHC RDW Plt Count MPV Immature Gran % (Auto) Neut % (Auto) Lymph % (Auto) [place] % (Auto) Eos % (Auto) Baso % (Auto) Lymph # (Auto) [place] # (Auto) Eos # (Auto) Baso # (Auto) Abs Immat Gran (auto) Absolute Neuts (auto) Absolute Nucleated RBC Nucleated RBC % (auto) Smear Tech's Comments D-Dimer VBG pH 7.34 VBG pCO2 35 VBG Oxygen Liters/Min Not Reportable VBG pO2 46 VBG HCO3 18 VBG O2 Saturation 78.8 VBG Base Excess -7.1 Sodium Potassium Chloride Carbon Dioxide Anion Gap BUN Creatinine Estim Creat Clear Calc Estimated GFR POC Glucose 223 H Random Glucose Lactic Acid Calcium Phosphorus Magnesium Ferritin Total Bilirubin AST ALT Alkaline Phosphatase Lactate Dehydrogenase Troponin I High Sens C-Reactive Protein B-Natriuretic Peptide 888 H Total Protein Albumin Procalcitonin Urine Color Urine Appearance Urine pH Ur Specific [place] Urine Protein Urine Glucose (UA) Urine Ketones Urine Blood Urine Nitrite Ur Leukocyte Esterase Urine RBC Urine WBC Ur Squamous Epith Cells Amorphous Sediment Urine Bacteria Progress Note: A&P Time Spent With Patient Time: Total time spent is greater than 50% in coordination of care (as documented) at patient's floor/unit and/or counseling patient: Total time spent with greater than 50% in coordination of care (as documented) at patient's floor/unit and/or counseling patient:: 0 Critical Care Time Critical Care Time (minutes): 30
[2020-06-07] MEDS: Bumetanide 1 MG/4 ML VIAL 2 MG IVPUSH (15:28)
[2020-06-07 16:02] LABS: Glucose, Whole Blood 222 mg/dL (60-115)
[2020-06-07] MEDS: Aspirin Enteric Coated 81 MG TABLET.DR PO (16:32)
[2020-06-07] MEDS: Tacrolimus 1 MG CAPSULE PO ×2 (16:33→20:48)
[2020-06-07] MEDS: Lidocaine 5 % Ointment 35 GM 1 APPL TOPICAL ×2 (16:33→21:38)
--- NOTE | 2020-06-07 17:03 | P.CONNP_ITS ---
History of Present Illness Reason for Consult Consult date: 06/07/20 Reason for consult: PRICILLA Chief Complaint Chief complaint: RESPIRATORY FAILURE WITH HYPOXIA 2/2 COVID + History of Present Illness Narrative: 70 y/o kidneyxpalnt adm with COVID 19 resp failure and PRICILLA on CKD with severe hypoxia not requiring mech ventilation yet. Aggressive evaluation by ICUto otimize resp status. Has central line but CVP but sems unrelaible. Card echo as per ICU reveals volume overloaded He remains very SOB on high flow O2. Prod cough. 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 Obesity (BMI 30-39.9) Osteoporosis [facility] Past Medical History Medical History (Updated 06/07/20 @ 07:58 by MOHSEN Rodríguez) CKD stage 3 due to type 2 diabetes mellitus Diabetic nephropathy associated with type 2 diabetes mellitus Diabetic polyneuropathy associated with type 2 diabetes mellitus Diabetic retinopathy associated with type 2 diabetes mellitus Dyslipidemia History of amputation of toe Hypertension 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 Obesity (BMI 30-39.9) Osteoporosis Family History Family History Father Diabetes Mother CVA (cerebral vascular accident) Surgical History Surgical History History of open reduction and internal fixation (ORIF) procedure Hx of kidney transplant Social History Social History Alcohol intake: unknown Smoking Status: Never smoker Smoked in Last 30 Days: No Use of substances other than those prescribed or required for medical reasons: No Currently Displaying Signs/Symptoms of Drug Intoxication Withdrawal: No Advance Directives: No Advance Directives Information Provided: Yes Do you have thoughts of harming others: None Do you have a plan to hurt others: No Plan Meds Allergies Allergy/AdvReac Type Severity Reaction Status Date / Time No Known Allergies Allergy Unverified 04/19/20 17:29 Crestor Allergy Unknown Uncoded 03/27/20 00:00 latex Allergy Unknown Uncoded 03/27/20 00:00 metal Allergy Unknown Uncoded 03/27/20 00:00 Home Medications Medication Instructions Recorded Confirmed Type albuterol sulfate 90 mcg/actuation 1 puff INHALATION Q6H PRN 05/29/20 06/06/20 History aerosol inhaler aspirin 81 mg tablet,delayed 81 mg PO DAILY 05/29/20 06/06/20 History release atorvastatin 40 mg tablet 40 mg PO BEDTIME 05/29/20 06/06/20 History blood sugar diagnostic #10 ea 05/29/20 05/29/20 History calcium carbonate 600 mg (1,500 1 tab PO BID 05/29/20 06/06/20 History mg)-vitamin D3 400 unit tablet carvedilol 12.5 mg tablet 12.5 mg PO BID 05/29/20 06/06/20 History furosemide 20 mg tablet 20 mg PO DAILY 05/29/20 06/06/20 History gabapentin 100 mg capsule 100 mg PO BID 05/29/20 06/06/20 History lisinopril 5 mg tablet 5 mg PO DAILY 05/29/20 06/06/20 History montelukast 10 mg tablet 10 mg PO BEDTIME 05/29/20 06/06/20 History mycophenolate sodium 180 mg 540 mg PO BID 05/29/20 06/06/20 History tablet,delayed release nifedipine 30 mg tablet,extended 30 mg PO BID 05/29/20 06/06/20 History release 24 hr oxycodone 5 mg tablet 5 mg PO TID PRN 05/29/20 06/06/20 History sennosides 8.6 mg tablet 17.2 mg PO DAILY 05/29/20 06/06/20 History sertraline 100 mg tablet 100 mg PO DAILY 05/29/20 06/06/20 History tacrolimus 1 mg capsule 3 mg PO DAILY 05/29/20 05/29/20 History trazodone 50 mg tablet 50 mg PO BEDTIME 05/29/20 06/06/20 History Physical Exam Vital Signs: Last Vital Signs Temp 98.6 F 06/07/20 16:00 Pulse 73 06/07/20 16:00 Resp 23 H 06/07/20 16:35 BP 112/64 06/07/20 16:00 Pulse Ox 90 L 06/07/20 16:00 Body Mass Index 32.9 VITAL SIGNS: Reviewed. GENERAL: Well developed, well nourished, in no acute distress. HEAD: Normocephalic/atraumatic, EYES: PERRLA, EOMI intact without pain, no nystagmus/pallor/icterus noted EARS: Ext canals without abnormality, TMs non-bulging and non-erythematous NOSE: Nares patent bilateral OROPHARYNX: no oral lesions noted, posterior pharynx clear and non-erythematous without noted tonsillar enlargement/erythema/exudates NECK: Supple, no adenopathy LUNGS: grunting, accessory muscle use, tachypnea,+adventitious sounds and accessory muscle use. SpO2<77>On 100% non-rebreather CARDIOVASCULAR: Regular rate and rhythm without noted murmurs, no JVD or lower extremity edema. ABDOMEN: Soft, non-tender, non-distended with bowel sounds. No rigidity. No guar ding. No palpable masses or hernias noted MUSCULOSKELETAL: No tenderness, deformities, or effusions noted on gross inspection. EXTREMITIES: No cyanosis, clubbing or edema; LUE: AV fistula that is not currently being used. SKIN: Inspection of the skin reveals no rashes, ulcerations, jaundice, pallor, or petechiae. NEUROLOGIC: Alert and oriented x 4. Strength and sensation to light touch were grossly intact x 4. Const General: cooperative, no acute distress and well developed Nutritional Appearance: obese Orientation/consciousness: patient oriented x3 Limitations: language barrier (Speaks Fijian, used adjunct professor) HENUT Other: wearing a BiPAP mask Head: Yes normal to inspection Eyes General: appearance normal, both eyes and all related structures EOM: EOMs intact bilaterally Neck Neck: Yes normal visual inspection, Yes full ROM and Yes supple Resp Effort & Inspection: normal respiratory effort (on Bipap) and able to speak in complete sentences Auscultation: bronchovesicular breath sounds Cardio Rate: regular rate Rhythm: regular rhythm Heart sounds: normal S1 and S2 GI Inspection: Yes obesity Palpation (GI): Soft to palpation and nontender Auscultation: normal bowel sounds Skin General skin exam: no rashes or lesions noted Neuro General: patient oriented x3 Cognition (Neuro): normal cognition Extrem Other: has CGM on leg, fistula on left arm General: Yes normal to inspection and Yes no pedal edema Results Lab Results Result Diagrams: 06/07/20 05:53 06/07/20 07:10 Lab results: Chemistry 06/06/20 06/07/20 06/07/20 22:08 02:00 05:53 Sodium 128 L 126 L Cancelled Potassium 6.0 H* 5.6 H Cancelled Carbon Dioxide 20 L 15 L Cancelled BUN 49 H 49 H Cancelled Creatinine 3.21 H 2.96 H Cancelled Calcium 7.8 L 7.4 L Cancelled Phosphorus 2.0 L Cancelled 06/07/20 06/07/20 07:10 07:10 Sodium 127 L Potassium 4.7 Carbon Dioxide 16 L BUN 48 H Creatinine 2.73 H Calcium 7.2 L 7.2 L Phosphorus 3.0 Hematology 06/06/20 06/07/20 22:08 05:53 WBC 9.7 12.5 H Hgb 9.7 L 9.4 L Plt Count 259 255 Urinalysis 06/06/20 22:46 Urine Color YELLOW Urine Appearance CLEAR Urine pH 5.0 Ur Specific [place] 1.025 Urine Protein 1+ H Urine Glucose (UA) NEG Urine Ketones NEG Urine Blood TRACE Urine Nitrite NEG Ur Leukocyte Esterase NEG Urine RBC 0-2 Urine WBC 0 Ur Squamous Epith Cells 1+ Assessment and Plan (1) COVID-19 virus infection: Status: Acute (2) Respiratory failure with hypoxia: Qualifiers: Chronicity: acute Qualified Code(s): J96.01 - Acute respiratory failure with hypoxia Status: Acute (3) Hypomagnesemia: Status: Acute (4) Hypertension: Status: Chronic (5) Diabetes mellitus type 2, with complication, on group home insulin pump: Status: Chronic (6) Acute hyperkalemia: Problem details: 6.0 mmol/L Status: Acute (7) PRICILLA (acute kidney injury): Status: Acute (8) Hyponatremia: Problem details: 126 mmol/L Status: Acute (9) Hypophosphatemia: Problem details: 2.0 Status: Acute patient appears to be on day 2 of his symptoms, will follow COVID-19 guidelines, was given 125mg Solumedrol in ED. Elevated covid marker labs, continue to monitor. Upon arrival to the ICU, the patient developed a fever of 102.2. This is not sepsis, this is likely due to Covid infection. Will give Covid-19 protocol meds. continue BiPAP, ? transition to high flow 1gm Mag given in ED, 1mg Mag given upon arrival to ICU, will monitor Continue home meds, monitor Keep CGM and pump on but stop insulin delivery of pump, change to Lantus and H umalog. Likely secondary to dehydration, will rehydrate and monitor Renal consult. Baseline Cr around 1.78-2.3, elevated to 3.21 today. avoid nephrotoxic drugs, monitor renal indices, pt had Kidney transplant 2016 and no longer requires dialysis but still has the fistula in his left arm replete using NS 1. Non-Oligric PRICILLA: most c/w multifact ATN from COVID assoc cyokine injury; renal hypoperfsuion and renal thrombosis all potential contributors; acute rejection seems unlikely as does Obs ..the latter as he has mendel; Covid direct renal injury remains a consideration but unclear if covid is directly neohrotoxic 2. CKD 3: bsl SCr 1.7 c/w DN and prior rejection of xplant kidey 3. Resp failure: c/w COVID infection/inflamation/ARDS and ques of pulm edema based on echo 4. IS: normall ymaintained on tacro/cellcept: will holdcellcept given potential risk of over IS 5. HypoNa: d/t ianbility to handle FWater in face of PRICILLA; COVID infection may i tseldf be assoc with [facility] REC: hold cellcept; check urinestudies to calc a FENA and FEUrea; agree with trial of diuretics given ECHO and need to try and improve resp Ox;ongoing Tx of COVID with steroids no indication for HD at this time but need to follow nicholas as may need UF...has an AVF and coud try to use if and when he need HD/UF Willfollow nicholas with ICU team
[2020-06-07 17:29] LABS: Base Excess VBG -6.2 mmol/L; HCO3 VBG 19 mmol/L; Oxygen Saturation VBG 72.5 %; PCO2 VBG 34 mmhg; PO2 VBG 41 mmhg; pH VBG 7.36 (7.32-7.43)
[2020-06-07 17:50] LABS: Anion Gap 15 (12-20); Blood Urea Nitrogen 50 mg/dL (9-16); Calcium 7.1 mg/dL (8.4-10.2); Carbon Dioxide 20 mmol/L (22-29); Chloride 100 mmol/L (96-108); Creatinine Clr Calc Pharmacy 29.4; Estimated Glomerular Filt Rate 26; Glucose Random 190 mg/dL (60-115); Sodium 131 mmol/L (135-145)
[2020-06-07 18:03] LABS: Sodium Urine Random < 20.0 mmol/L
[2020-06-07 18:58] LABS: Glucose, Whole Blood 177 mg/dL (60-115)
[2020-06-07] MEDS: Bumetanide 25 MG in Container,Empty 0 ML 4 MG IVCONT (19:11)
[2020-06-07] MEDS: methylPREDNISolone Sod Succ/PF 125 MG/2 ML VIAL 80 MG IVPUSH (19:48)
[2020-06-07] MEDS: Thiamine HCL 200 MG/2 ML VIAL IVPUSH (20:43)
[2020-06-07] MEDS: Calcium + Vitamin D 250 MG TABLET PO (20:44)
[2020-06-07] MEDS: Melatonin 3 MG TABLET 9 MG PO (20:44)
[2020-06-07 22:51] LABS: Glucose, Whole Blood 192 mg/dL (60-115)
[2020-06-08] VITALS (35 sets, daily range): BP systolic 104–138; BP diastolic 37–90; PULSE 75–88; RESP 16–28; TEMP 36.2–37; O2SAT 79–93; BMI 30.4; BMI 32.9
[2020-06-08] MEDS: 0.9 % Sodium Chloride Flush 3 ML SYRINGE IVFLUSH ×3 (00:26→22:45)
[2020-06-08 00:51] LABS: Glucose, Whole Blood 175 mg/dL (60-115)
[2020-06-08] MEDS: Lidocaine 5 % Ointment 35 GM 1 APPL TOPICAL (01:00)
[2020-06-08] MEDS: HYDROmorphone HCl 0.5 MG/0.5 ML SYRINGE IVPUSH ×4 (02:32→19:52)
[2020-06-08 02:42] LABS: Glucose, Whole Blood 152 mg/dL (60-115)
[2020-06-08] MEDS: Albuterol/Iprat 2.5/0.5MG 3 ML AMPUL.NEB INHALE (02:56)
[2020-06-08 04:50] LABS: Base Excess VBG -3.6 mmol/L; Basophils Percent Auto 0.1 % (0-2); HCO3 VBG 22 mmol/L; Hematocrit 30.4 % (42-52); Hemoglobin 9.8 g/dl (14.0-18.0); Imm Gran Abs Auto 0.09 X10*3/uL (0.00-0.03); Imm Gran Pct Auto 0.7 % (0.0-0.4); Lymphocytes Absolute Auto 0.3 X10*3/uL (1.2-4.9); Lymphocytes Percent Auto 2.3 % (20-40); MANUAL DIFF FLAG SCAN; Mean Corpuscular HGB Conc 32.2 g/dl (31.0-36.0); Mean Corpuscular Volume 89.9 fL (80-98); Mean Platelet Volume 9.1 fL (9.4-12.4); Monocytes Absolute Auto 0.3 X10*3/uL (0.1-1.2); Monocytes Percent Auto 2.4 % (2-11); Neutrophils Absolute Auto 11.7 X10*3/uL (2.0-8.3); Neutrophils Percent Auto 94.5 % (45-73); Oxygen Saturation VBG 71.5 %; PCO2 VBG 40 mmhg; PO2 VBG 39 mmhg; Platelet Count 298 X10*3/uL (160-400); Red Blood Count 3.38 X10*6/uL (4.60-5.80); SCAN SMEAR FLAG 1; White Blood Count 12.3 X10*3/uL (4.8-10.8); pH VBG 7.36 (7.32-7.43)
[2020-06-08 05:08] LABS: INTERNATIONAL NORM RATIO 1.5 (0.9-1.1); Prothrombin Time 17.8 SEC (10.8-13.0)
[2020-06-08 05:16] LABS: Albumin Level 3.2 g/dL (3.5-5.0); Lactate Dehydrogenase 584 U/L (118-273); Magnesium 2.1 mg/dL (1.6-2.6); Phosphorus 3.4 mg/dL (2.7-4.5)
[2020-06-08 05:21] LABS: B Type Natriuretic Peptide 476 pg/mL (<100)
[2020-06-08 05:35] LABS: Procalcitonin 2.83 ng/mL
[2020-06-08 05:36] LABS: Ferritin 1089 ng/mL (20-250)
[2020-06-08 05:37] LABS: SARS COV2 IgG Positive (Negative)
[2020-06-08] MEDS: Enoxaparin Sodium 60 MG/0.6 ML SYRINGE 45 MG SUBCUT (05:52)
[2020-06-08 06:11] LABS: Anion Gap 19 (12-20); Blood Urea Nitrogen 58 mg/dL (9-16); C Reactive Protein 30.35 mg/dL (< or = 0.50); Calcium 7.3 mg/dL (8.4-10.2); Carbon Dioxide 19 mmol/L (22-29); Chloride 101 mmol/L (96-108); Creatinine Clr Calc Pharmacy 30.4; Estimated Glomerular Filt Rate 27; Glucose Random 149 mg/dL (60-115); Potassium 4.4 mmol/l (3.3-5.1); Sodium 135 mmol/L (135-145)
[2020-06-08 06:38] LABS: SLIDE REVIEW VERIFIED
[2020-06-08 06:50] LABS: D Dimer 949 NG/ML
[2020-06-08 06:50] LABS: Glucose, Whole Blood 124 mg/dL (60-115)
--- NOTE | 2020-06-08 07:27 | PC.NURSE ---
ASSUMED CARE AT 23:15. PATIENT ALERT, ORIENTED, ANXIOUS, LATVIAN SPEAKING AND COMMUNICATED WITH IN LATVIAN. PATIENT IS ON HIGH FLOW OXYGEN AT 60 LPM AND 100% NRB MASK. LUNG SOUNDS ARE DIMINISHED THROUGHOUT, AND PATIENT IS TACHYPNEIC RR 20-26 AT TIMES. HAS HAD INCREASED WORK OF BREATHING WELL, IV DILAUDID PER EMAR X 2 OVERNIGHT WITH GOOD EFFECT, MOST RECENTLY AT 06:30 WITH REPOSITIONING. PATIENT HAS DIMINISHED LUNG SOUNDS THROUGHOUT, AND BECOMES ANXIOUS AND ALSO DESATURATES WITH SPO2 DROPPING TO 85-87% RANGE WITH NEARLY ANY MOVEMENT OR CONVERSATION. PATIENT DROPS OXYGEN SATURATION WITH REPOSITIONING TO THE 81-86% RANGE AND TAKES A WHILE TO RECOVER. PATIENT ENCOURAGED TO BREATHE MORE SLOWLY AND PRN UPDRAFT WITH SOME GOOD EFFECT. DISCUSSED WITH RT AND PA WHETHER PATIENT MAY NEED TO GO BACK ON BIPAP, AND THIS WAS NOT INDICATED AT THIS TIME. PATIENT. DISCUSSED POSSIBILITY OF PRONING PATIENT WITH PA AND WITH PATIENT. PATIENT STATED THAT AT HOME HE SLEEPS IN A POSITION CHANGING BED, AND NORMALLY SLEEPS FACE UP OR ON HIS SIDE. PRONING WAS NOT INDICATED PER PA WHEN DISCUSSED OVERNIGHT, BUT MD RECOMMENDS TO DAY SHIFT TO ATTEMPT TO POSITION PATIENT ON HIS SIDE. OVERNIGHT WITH REPOSITIONING, PATIENT DID NOT TOLERATE THIS WELL. DAY SHIFT AWARE OF LATERAL RECUMBANT RECOMMENDATION. PATIENT DOES HAVE A TENDANCY TO INSIST ON LOWERING HOB AND DID NOT TOLERATE THIS WITH REGARD TO HIS SPO2 OVERNIGHT. PATIENT COMPLAINED OF DRY ORAL MUCOSA, MOISTURIZER CREAM AND PO WATER INTAKE WITH GOOD EFFECT. PATIENT HAD DISCOMFORT TO BILAT NARES, LEFT GREATER THAN RIGHT, PRN LIDOCAINE GEL WITH GOOD EFFECT. PATIENT ON BUMEX GTT 1 MG/HOUR, AND VOIDING IN URINAL, DOES TEND TO DESAT WITH URINATION, BUT VOIDED ABOUT 1000 CCS OVERNIGHT IN URINAL, CLOUDY YELLOW URINE. AFEBRILE OVERNIGHT. PATIENT WITH INSULIN GTT OVERNIGHT, THIS WAS AT 2 UNITS /HOUR INTIIALLY, UPTITIRATED AT 00:00 TO 3 UNITS PER HOUR PER PA, THEN MAINTAINED AT 3 UNITS PER HOUR AND POC CHECKED PER PA AT 02:35; AT 04:00 WITH RANDOM GLUCOSE; AND AT 06:00 WITH POC, TRENDED DOWN FROM 175 TO 125 OVERNIGHT, KEPT AT 3 U/HOUR PER PA. PATIENT HYPONATREMIA RESOLVED THIS MORNING, ALSO COVID ANTIBODIES PER SEROLOGY, MG WNL; H/H STABLE; LDH INCREASING; BNP DECREASING; VBGS WNL; CREATININE SLIGHTLY IMPROVED 2.39; WBC DECREASING 12.3; AFEBRILE ALSO CRITICAL LAB OF 1 BLOOD CULTURES FROM 06/06 ANAEROBIC SET POSITIVE FOR GRAM POSITIVE COCCI IN CLUSTERS, PA NOTIFIED, NO NEW ORDERS PER PA, PROBABLE CONTAMINATION. .
--- NOTE | 2020-06-08 08:12 | PC.NURSE ---
insulin drip at 3 units/hr, noted 0700
[2020-06-08] MEDS: Sertraline HCL 100 MG TABLET PO (08:24)
[2020-06-08] MEDS: Famotidine 20 MG TABLET PO ×2 (08:24→19:53)
[2020-06-08] MEDS: Aspirin Enteric Coated 81 MG TABLET.DR PO (08:24)
[2020-06-08] MEDS: Atorvastatin Calcium 80 MG TABLET PO (08:25)
[2020-06-08] MEDS: Tacrolimus 1 MG CAPSULE 2 MG PO ×2 (08:25→12:24)
[2020-06-08] MEDS: Calcium + Vitamin D 250 MG TABLET PO ×2 (08:26→19:53)
[2020-06-08] MEDS: Insulin Regular/NS 100 UNIT/100 ML PLAST..BAG IVCONT (08:27)
[2020-06-08] MEDS: methylPREDNISolone Sod Succ/PF 125 MG/2 ML VIAL 80 MG IVPUSH ×2 (08:27→19:53)
[2020-06-08] MEDS: Thiamine HCL 200 MG/2 ML VIAL IVPUSH ×2 (08:27→19:53)
[2020-06-08 08:58] LABS: Glucose, Whole Blood 124 mg/dL (60-115)
[2020-06-08 10:45] LABS: Partial Thromboplastin Time 44.3 SEC (24.1-38.0)
--- NOTE | 2020-06-08 10:45 | P.PNNP_ITS ---
Subjective Subjective Interval history: Seen and exmained. Events noted. Does not meka oglesby Cont higfh O2 req Unable to pronate On bumex drip Physical Exam Vital Signs: Vital Signs: Last Vital Signs Temp 97.8 F 06/08/20 04:00 Pulse 81 06/08/20 09:54 Resp 25 H 06/08/20 09:54 BP 131/65 06/08/20 09:54 Pulse Ox 85 L 06/08/20 09:54 Body Mass Index 32.9 VITAL SIGNS: Reviewed. GENERAL: Well developed, well nourished, in no acute distress. HEAD: Normocephalic/atraumatic, EYES: PERRLA, EOMI intact without pain, no nystagmus/pallor/icterus noted EARS: Ext canals without abnormality, TMs non-bulging and non-erythematous NOSE: Nares patent bilateral OROPHARYNX: no oral lesions noted, posterior pharynx clear and non-erythematous without noted tonsillar enlargement/erythema/exudates NECK: Supple, no adenopathy LUNGS: grunting, accessory muscle use, tachypnea,+adventitious sounds and accessory muscle use. SpO2<77>On 100% non-rebreather CARDIOVASCULAR: Regular rate and rhythm without noted murmurs, no JVD or lower extremity edema. ABDOMEN: Soft, non-tender, non-distended with bowel sounds. No rigidity. No guarding. No palpable masses or hernias noted MUSCULOSKELETAL: No tenderness, deformities, or effusions noted on gross in spection. EXTREMITIES: No cyanosis, clubbing or edema; LUE: AV fistula that is not currently being used. SKIN: Inspection of the skin reveals no rashes, ulcerations, jaundice, pallor, or petechiae. NEUROLOGIC: Alert and oriented x 4. Strength and sensation to light touch were grossly intact x 4. 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 Bengali, used educational sign language interpreter) HENMT: Other: wearing a BiPAP mask Head: Yes normal to inspection Eyes: General: appearance normal, both eyes and all related structures EOM: EOMs intact bilaterally Neck: Neck: Yes normal visual inspection, Yes full ROM and Yes supple Resp: Effort & Inspection: normal respiratory effort (on Bipap) and able to speak in complete sentences Auscultation: bronchovesicular breath sounds Cardio: Rate: regular rate Rhythm: regular rhythm Heart sounds: normal S1 and S2 GI: Inspection: Yes obesity Palpation (GI): Soft to palpation and nontender Auscultation: normal bowel sounds Skin: General skin exam: no rashes or lesions noted Neuro: General: patient oriented x3 Cognition (Neuro): normal cognition Extrem: Other: has CGM on leg, fistula on left arm General: Yes normal to inspection and Yes no pedal edema Assessment & Plan Assessment and plan (1) COVID-19 virus infection: Status: Acute (2) Respiratory failure with hypoxia: Status: Acute (3) Hypomagnesemia: Status: Acute (4) Hypertension: Status: Chronic (5) Diabetes mellitus type 2, with complication, on salvage determiner insulin pump: Status: Chronic (6) Acute hyperkalemia: Problem details: 6.0 mmol/L Status: Acute (7) PRICILLA (acute kidney injury): Status: Acute (8) Hyponatremia: Problem details: 126 mmol/L Status: Acute (9) Hypophosphatemia: Problem details: 2.0 Status: Acute Assessment and Plan: 1. Non-Oligric PRICILLA: SCr slt decr; still most c/w multifact ATN from COVID assoc cyokine injury; renal hypoperfsuion and renal thrombosis all potential contributors; acute rejection seems unlikely as does Obs; Covid direct renal injury remains a consideration but unclear if covid is directly neohrotoxic 2. CKD 3: bsl SCr 1.7 c/w DN and prior rejection of xplant kidey 3. Resp failure: c/w COVID infection/inflamation/ARDS and ques of pulm edema based on echo 4. IS: normall maintained on tacro/cellcept: will holdcellcept given potential risk of over IS 5. HypoNa: d/t ianbility to handle FWater in face of PRICILLA; COVID infection may itseldf be assoc with [facility] REC: hold cellcept and cont tacro at usu dose 2 in am and 1 in pm and check tacro trough level; agree with cont trial of diuretics given ECHO and need to try and improve resp Ox;ongoing Tx of COVID with steroids no indication for HD at this time but need to follow nicholas as may need UF...has an AVF and coud try to use if and when he need HD/UF Will follow nicholas with ICU team Time Spent With Patient Time: Total time spent is greater than 50% in coordination of care (as documented) at patient's floor/unit and/or counseling patient:
[2020-06-08 11:35] LABS: Glucose, Whole Blood 122 mg/dL (60-115)
--- NOTE | 2020-06-08 11:49 | P.PNCC_ITS ---
Subjective Subjective Date of Service: 06/08/20 Interval History: Mr. Delong was admitted to the ICU on June 06 with acute respiratory failure secondary to severe COVID-19 pneumonia. The patient has DM on insulin pump, HTN, CKD, s/p kidney transplant in 2015, hypertension, dyslipidemia, osteoporosis and hypogonadism. On Tacrolimus and Cellcept. Tested positive for COVID on May 28, reportedly bec family member had it. Started have symptoms on around Jun 04, w cough and SOB. BIBA to the ED on Jun 06 last nite because he was having increased shortness of breath, decreased po intake. EMS reported sat was 55% on room air, was henao and grunting . When he arrived at the ED, his O2 sat was 77% on 100% non rebreather. Afebril. CXR showed severe COVID pneumonia, right side worse than left. Labs in ED notable for WBC 9.7, K 6.0, CO2 20, BUN/creat 49/3.2 (baseline 1.7), Ferritin 699, LDH 332, CRP 26.46, procalcitonin 0.36, lactic acid 1.3. In the ED, he was put on BiPAP at 100% FiO2. Sat up to high 90?s. Admitted to ICU and changed to 90% HFNC, w sat 90%. Was febrile to 102? on arrival to ICU. We started him on the full [facility] COVID protocol, include Solu-Medrol 80 mg bid. In the morning, we took him off BiPAP and put him on 100% high flow. WOB was OK but Sat?s dropping below 90%. We added NRBFM in order to placed a triple lumen catheter, which went in without incident. F/U CXR showed much worse infiltrates bilat. Could also be pulmon edema. BNP was 888. Echo done by the tech at the bedside: - LV fxn difficult to say, even w Diffinity. EF prob 60%. - LV cavity size prob normal. - RV cavity size top normal - Tricuspid jet 3.4m/sec, gradient 46mm - IVC dilated w minimal insp collapse. RVSP estimate therefore about [address] Jackson. Bolused with Bumex and started a drip at 1mg/hr. He does not have a Porter catheter, but urine output seems to be averaging about 100 cc/hour. Cumulatively he?s net negative about 600 cc. Sat been averaging about 90% on the HFNC 60L/100% plus NRBFM on flush. This morning he?s sleeping. See Vital Signs below. RR is 23 with Sat 90% on the HFNC + NRBFM as above. Overnight, he desaturated into the 70?s w movement, takes 15-30 min to recover. He has some abdom paradox, the usual for an older man with a large belly, but no other incr WOB or access musc use. HR 80?s, BP 126/52. Been afebrile > 24hrs. LABORATORY DATA: As below. Notably, point of cares down to the 120s. BUN and creatinine down to 58/2.3. D-dimer up to 949, ferritin up to 1089, LDH up to 584, CRP up to 30, procalcitonin up to 2.8. IMPRESSION: 1. Severe bilateral COVID-19 pneumonia. Continue tx with [facility]MS protocol. 2. Acute hypoxemic respiratory failure. Secondary to above. We?re doing everything we can to avoid intubation. Hoping that the steroids and anticoagulation and other COVID tx will kick in and prevent that need, although it doesn?t look promising at this time. For now, we?ll keep going as long as WOB is OK. Check VBG bid. 3. PRICILLA. Slightly improved with diuresis. Check chemistries bid. 4. Volume overload/? Acute pulmon edema. Continue Bumex. 5. ID. No evidence of sepsis. No abx indicated at this time. No indication for Remdesivir or convalescent plasma (too late). 6. Nutrition. Liquid nutrition as tolerated. Prognosis is grave. Critical care time: 50+ min. Physical Exam Vital Signs: Vital Signs: Last Vital Signs Temp 97.8 F 06/08/20 04:00 Pulse 81 06/08/20 11:00 Resp 19 06/08/20 11:22 BP 133/60 06/08/20 11:00 Pulse Ox 90 L 06/08/20 11:00 Body Mass Index 32.9 Objective Data Labs CBC & Chem 7: 06/08/20 04:10 06/08/20 04:10 Labs: Laboratory Results - last 24 hr 06/06/20 06/07/20 06/07/20 23:13 13:00 13:11 WBC RBC Hgb Hct MCV MCH MCHC RDW Plt Count MPV Immature Gran % (Auto) Neut % (Auto) Lymph % (Auto) Cuming % (Auto) Eos % (Auto) Baso % (Auto) Lymph # (Auto) Cuming # (Auto) Eos # (Auto) Baso # (Auto) Abs Immat Gran (auto) Absolute Neuts (auto) Absolute Nucleated RBC Nucleated RBC % (auto) Smear Tech's Comments PT INR APTT D-Dimer VBG pH VBG pCO2 VBG Oxygen Liters/Min VBG pO2 VBG HCO3 VBG O2 Saturation VBG Base Excess Sodium Potassium Chloride Carbon Dioxide Anion Gap BUN Creatinine Estim Creat Clear Calc Estimated GFR POC Glucose 223 H Random Glucose Calcium Phosphorus Magnesium Ferritin Lactate Dehydrogenase C-Reactive Protein B-Natriuretic Peptide 888 H Albumin Procalcitonin Ur Random Sodium < 20.0 SARS-CoV-2 IgG Ab 06/07/20 06/07/20 06/07/20 15:55 16:58 16:58 WBC RBC Hgb Hct MCV MCH MCHC RDW Plt Count MPV Immature Gran % (Auto) Neut % (Auto) Lymph % (Auto) Cuming % (Auto) Eos % (Auto) Baso % (Auto) Lymph # (Auto) Cuming # (Auto) Eos # (Auto) Baso # (Auto) Abs Immat Gran (auto) Absolute Neuts (auto) Absolute Nucleated RBC Nucleated RBC % (auto) Smear Tech's Comments PT INR APTT D-Dimer VBG pH 7.36 VBG pCO2 34 VBG Oxygen Liters/Min Not Reportable VBG pO2 41 VBG HCO3 19 VBG O2 Saturation 72.5 VBG Base Excess -6.2 Sodium 131 L Potassium 4.0 Chloride 100 Carbon Dioxide 20 L Anion Gap 15 BUN 50 H Creatinine 2.47 H Estim Creat Clear Calc 29.4 Estimated GFR 26 POC Glucose 222 H Random Glucose 190 H D Calcium 7.1 L Phosphorus Magnesium Ferritin Lactate Dehydrogenase C-Reactive Protein B-Natriuretic Peptide Albumin Procalcitonin Ur Random Sodium SARS-CoV-2 IgG Ab 06/07/20 06/07/20 06/08/20 18:49 21:02 00:12 WBC RBC Hgb Hct MCV MCH MCHC RDW Plt Count MPV Immature Gran % (Auto) Neut % (Auto) Lymph % (Auto) Cuming % (Auto) Eos % (Auto) Baso % (Auto) Lymph # (Auto) Cuming # (Auto) Eos # (Auto) Baso # (Auto) Abs Immat Gran (auto) Absolute Neuts (auto) Absolute Nucleated RBC Nucleated RBC % (auto) Smear Tech's Comments PT INR APTT D-Dimer VBG pH VBG pCO2 VBG Oxygen Liters/Min VBG pO2 VBG HCO3 VBG O2 Saturation VBG Base Excess Sodium Potassium Chloride Carbon Dioxide Anion Gap BUN Creatinine Estim Creat Clear Calc Estimated GFR POC Glucose 177 H 192 H 175 H Random Glucose Calcium Phosphorus Magnesium Ferritin Lactate Dehydrogenase C-Reactive Protein B-Natriuretic Peptide Albumin Procalcitonin Ur Random Sodium SARS-CoV-2 IgG Ab 06/08/20 06/08/20 06/08/20 02:35 04:10 04:10 WBC 12.3 H RBC 3.38 L Hgb 9.8 L Hct 30.4 L MCV 89.9 MCH 29.0 MCHC 32.2 RDW 13.0 Plt Count 298 MPV 9.1 L Immature Gran % (Auto) 0.7 H Neut % (Auto) 94.5 H Lymph % (Auto) 2.3 L Cuming % (Auto) 2.4 Eos % (Auto) 0.0 Baso % (Auto) 0.1 Lymph # (Auto) 0.3 L Cuming # (Auto) 0.3 Eos # (Auto) 0.0 Baso # (Auto) 0.0 Abs Immat Gran (auto) 0.09 H Absolute Neuts (auto) 11.7 H Absolute Nucleated RBC 0.000 Nucleated RBC % (auto) 0.0 Smear Tech's Comments VERIFIED PT 17.8 H INR 1.5 H APTT 44.3 H D-Dimer VBG pH VBG pCO2 VBG Oxygen Liters/Min VBG pO2 VBG HCO3 VBG O2 Saturation VBG Base Excess Sodium Potassium Chloride Carbon Dioxide Anion Gap BUN Creatinine Estim Creat Clear Calc Estimated GFR POC Glucose 152 H Random Glucose Calcium Phosphorus Magnesium Ferritin Lactate Dehydrogenase C-Reactive Protein B-Natriuretic Peptide Albumin Procalcitonin Ur Random Sodium SARS-CoV-2 IgG Ab 06/08/20 06/08/20 06/08/20 04:10 04:10 04:10 WBC RBC Hgb Hct MCV MCH MCHC RDW Plt Count MPV Immature Gran % (Auto) Neut % (Auto) Lymph % (Auto) Cuming % (Auto) Eos % (Auto) Baso % (Auto) Lymph # (Auto) Cuming # (Auto) Eos # (Auto) Baso # (Auto) Abs Immat Gran (auto) Absolute Neuts (auto) Absolute Nucleated RBC Nucleated RBC % (auto) Smear Tech's Comments PT INR APTT D-Dimer 949 VBG pH VBG pCO2 VBG Oxygen Liters/Min VBG pO2 VBG HCO3 VBG O2 Saturation VBG Base Excess Sodium 135 Potassium 4.4 Chloride 101 Carbon Dioxide 19 L Anion Gap 19 BUN 58 H Creatinine 2.39 H Estim Creat Clear Calc 30.4 Estimated GFR 27 POC Glucose Random Glucose 149 H Calcium 7.3 L Phosphorus 3.4 Magnesium 2.1 Ferritin 1089 H Lactate Dehydrogenase 584 H C-Reactive Protein 30.35 H B-Natriuretic Peptide Albumin 3.2 L Procalcitonin Ur Random Sodium SARS-CoV-2 IgG Ab Positive 06/08/20 06/08/20 06/08/20 04:10 04:10 04:10 WBC RBC Hgb Hct MCV MCH MCHC RDW Plt Count MPV Immature Gran % (Auto) Neut % (Auto) Lymph % (Auto) Cuming % (Auto) Eos % (Auto) Baso % (Auto) Lymph # (Auto) Cuming # (Auto) Eos # (Auto) Baso # (Auto) Abs Immat Gran (auto) Absolute Neuts (auto) Absolute Nucleated RBC Nucleated RBC % (auto) Smear Tech's Comments PT INR APTT D-Dimer VBG pH 7.36 VBG pCO2 40 VBG Oxygen Liters/Min Not Reportable VBG pO2 39 VBG HCO3 22 VBG O2 Saturation 71.5 VBG Base Excess -3.6 Sodium Potassium Chloride Carbon Dioxide Anion Gap BUN Creatinine Estim Creat Clear Calc Estimated GFR POC Glucose Random Glucose Calcium Phosphorus Magnesium Ferritin Lactate Dehydrogenase C-Reactive Protein B-Natriuretic Peptide 476 H Albumin Procalcitonin 2.83 Ur Random Sodium SARS-CoV-2 IgG Ab 06/08/20 06/08/20 06/08/20 06:06 07:56 11:19 WBC RBC Hgb Hct MCV MCH MCHC RDW Plt Count MPV Immature Gran % (Auto) Neut % (Auto) Lymph % (Auto) Cuming % (Auto) Eos % (Auto) Baso % (Auto) Lymph # (Auto) Cuming # (Auto) Eos # (Auto) Baso # (Auto) Abs Immat Gran (auto) Absolute Neuts (auto) Absolute Nucleated RBC Nucleated RBC % (auto) Smear Tech's Comments PT INR APTT D-Dimer VBG pH VBG pCO2 VBG Oxygen Liters/Min VBG pO2 VBG HCO3 VBG O2 Saturation VBG Base Excess Sodium Potassium Chloride Carbon Dioxide Anion Gap BUN Creatinine Estim Creat Clear Calc Estimated GFR POC Glucose 124 H 124 H 122 H Random Glucose Calcium Phosphorus Magnesium Ferritin Lactate Dehydrogenase C-Reactive Protein B-Natriuretic Peptide Albumin Procalcitonin Ur Random Sodium SARS-CoV-2 IgG Ab Microbiology Microbiology Results: Microbiology 06/06/20 22:36 Blood - Venous Blood Culture - Preliminary 06/06/20 22:36 Blood - Venous Blood Culture - Preliminary No growth after 24 hours. Progress Note: A&P Time Spent With Patient Time: Total time spent is greater than 50% in coordination of care (as documented) at patient's floor/unit and/or counseling patient: Total time spent with greater than 50% in coordination of care (as documented) at patient's floor/unit and/or counseling patient:: 0 Critical Care Time Critical Care Time (minutes): 60
[2020-06-08] MEDS: Ascorbic Acid 500 MG TABLET 1000 MG PO ×2 (12:23→17:47)
--- NOTE | 2020-06-08 12:55 | PC.NURSE ---
with interpreter for the deaf verified full code status and willingness to return to dialysis if needed. pt via interpreter for the deaf wants oxycodone, he says his whole body hurts. pt educated on plan of care, nutrition (ensure clear) as pt does not tolerate removal of nrmask
[2020-06-08] MEDS: oxyCODONE HCl Immed Release 5 MG TABLET PO (13:30)
[2020-06-08] MEDS: LORazepam 2 MG/ML VIAL 0.5 MG IVPUSH (13:31)
--- NOTE | 2020-06-08 13:44 | PC.NURSE ---
medicated for generalized c/o pain with home dose of oxycodone and prn ativan for anxiety pt presently asleep.
[2020-06-08 13:53] LABS: Glucose, Whole Blood 210 mg/dL (60-115)
[2020-06-08 14:42] LABS: Tacrolimus Prograf 23.6
--- NOTE | 2020-06-08 14:42 | MHC.CM.PN ---
Pt is presently in ICU with COVID-19. He is on NIPPV and will likely transition to intubation per MD for increased WOB. Per discussion with MD, pt's condition is very grave at this time and the plan of care and treatment will be assessed for changes. HCP on file Walter Quintanilla at [phone]: Thai is limited but he verbalized understanding of pt's condition. CM informed Walter that d/c planning will be ongoing based on pt's response to treatment and functional abilities. MD is keeping Walter informed on pt's medical status. No definitive d/c plans are in place at this time d/t pt's severity of illness - CM to follow for changes/improvments in condition - will f/u with Walter.
[2020-06-08] MEDS: Bumetanide 25 MG in Container,Empty 0 ML 4 MG IVCONT (15:59)
[2020-06-08 17:29] LABS: Base Excess VBG -2.2 mmol/L; HCO3 VBG 23 mmol/L; PCO2 VBG 40 mmhg; PO2 VBG 35 mmhg; pH VBG 7.37 (7.32-7.43)
[2020-06-08 17:30] LABS: Blood Gas Serial # 5414; Oxygen Saturation VBG 64.1 %
[2020-06-08 17:48] LABS: Anion Gap 17 (12-20); Blood Urea Nitrogen 64 mg/dL (9-16); Calcium 6.9 mg/dL (8.4-10.2); Carbon Dioxide 22 mmol/L (22-29); Chloride 100 mmol/L (96-108); Creatinine Clr Calc Pharmacy 29.1; Estimated Glomerular Filt Rate 26; Glucose Random 336 mg/dL (60-115); Potassium 3.9 mmol/l (3.3-5.1); Sodium 135 mmol/L (135-145)
[2020-06-08] MEDS: Heparin Sodium,Porcine 5,000 UNIT/ML VIAL 5000 UNIT IVPUSH (17:49)
[2020-06-08] MEDS: Heparin Sodium,Porcine/1/2NS 25,000 UNIT/250 ML IV.SOLN 11.27 UNIT IVCONT (17:50)
[2020-06-08] MEDS: Melatonin 3 MG TABLET 9 MG PO (19:53)
[2020-06-08 20:14] LABS: Glucose, Whole Blood 259 mg/dL (60-115)
--- NOTE | 2020-06-08 21:19 | P.PNCC_ITS ---
Critical Care Event Note Summary Code activated: No <MOHSEN Rodríguez - Last Filed: 06/09/20 06:18> Narrative: This case had a high probability of a clinically significant, sudden, or life threatening deterioration of this patient's condition which required my full and direct attention, intervention and personal management. 8:30pm With interpreter and translator present, bedside assessment revealed patient is altered, he is not oriented to self or year which is a change from his baseline, he is unable to answer questions appropriately about his ability to continue breathing or how he is feeling. His breathing is rapid and shallow and he appears to be getting tired. He is using accessory muscles to breathe. About an hour ago, he attempted to climb out of the bed, pull off his monitoring equipment and his oxygen saturation dropped to the 40s. Once the nurses were able to settle him back in bed it did climb back up after 10-15 mins. Pt vitals are RR 24, HR78, O2 sat 92%, BP 107/67. VBG 7.33/46/57/24/84.3 base excess -2.5, will check vbg in 3-4 hours and use precedex if pt tries climbing out of bed again. 11pm with interpreter and translator present, bedside assessment revealed patient is alert and oriented x3, we had a discussion about him staying in bed and not tearing off his mask or other medical equipment. he understands and states he is breathing okay, he is not struggling for air. he is breathing a little easier now and his O2 saturation is 92%, HR is 75. Will dc the ativan and start precedex. <MOHSEN Rodríguez - Last Filed: 06/09/20 06:18> Critical Care Time (minutes): 60 <MOHSEN Rodríguez - Last Filed: 06/09/20 06:18>
[2020-06-08 22:00] LABS: HCO3 VBG 24 mmol/L; PCO2 VBG 46 mmhg; PO2 VBG 57 mmhg; pH VBG 7.33 (7.32-7.43)
[2020-06-08 22:01] LABS: Base Excess VBG -2.5 mmol/L; Blood Gas Serial # 5414; Oxygen Saturation VBG 84.3 %
[2020-06-08] MEDS: dexmedeTOMIDidine HCL/NS 400 MCG/100 ML INFUS..BTL 5.61 MCG IVCONT (22:44)
[2020-06-08 23:12] LABS: Glucose, Whole Blood 185 mg/dL (60-115)
[2020-06-09] VITALS (32 sets, daily range): BP systolic 93–160; BP diastolic 46–73; PULSE 69–90; RESP 14–90; TEMP 36.4–38.9; O2SAT 85–96
[2020-06-09 00:30] LABS: Base Excess VBG -2.3 mmol/L; HCO3 VBG 24 mmol/L; Oxygen Saturation VBG 73.6 %; PCO2 VBG 48 mmhg; PO2 VBG 43 mmhg; pH VBG 7.32 (7.32-7.43)
--- NOTE | 2020-06-09 00:34 | PC.NURSE ---
Addendum entered by Sarah Beth Bassett RN 06/09/20 06:34: heparin gtt decreased by 4 units/kg/hr and restarted @ 0400. next ptt-hd due @ 1000. uop dwindling 10-20 cc/hr. pa aware. nrb removed @ 0630. Satting 91% on 100% HFNC @ 60 lpm Addendum entered by Sarah Beth Bassett RN 06/09/20 02:07: Insulin gtt titrated by ICU PA. Heparin gtt per protocol, currently on hold for critical ptt-hd. Porter inserted for accurate output monitoring. Patient tolerated well. Inserted on first attempt. Immediately drained 650+. Original Note: [id number] On initial assessment: patient restless, climbing oob, pulling off o2, satting 40%, increased work of breathing, opens eyes to stimuli but not answering questions/interacting meaningfully, mostly groaning. Assessed with jack of all trades, PA, and RT @ bedside. ?intubation. PRN dilaudid given and precedex started with good effect. Camera placed. Now mostly restful, requiring occasional redirection. work of breathing improved @ rest. satting 88-91% on 100% NRB and 100% high flow nc @ 60 lpm. SR 70's-90's. occasional pvc's.
[2020-06-09] MEDS: HYDROmorphone HCl 0.5 MG/0.5 ML SYRINGE IVPUSH ×8 (01:44→23:58)
[2020-06-09 02:55] LABS: Glucose, Whole Blood 105 mg/dL (60-115)
[2020-06-09 03:41] LABS: Base Excess VBG -1.3 mmol/L; HCO3 VBG 23 mmol/L; Oxygen Saturation VBG 88.6 %; PCO2 VBG 39 mmhg; PO2 VBG 61 mmhg
[2020-06-09 05:35] LABS: Hematocrit 30.3 % (42-52); Hemoglobin 9.7 g/dl (14.0-18.0); Mean Corpuscular Hemoglobin 28.8 pg (27.0-33.0); Mean Corpuscular Volume 89.9 fL (80-98); Mean Platelet Volume 8.9 fL (9.4-12.4); NRBC Pct Auto 0.2 /100WBC (0.0-0.2); Platelet Count 321 X10*3/uL (160-400); Red Blood Count 3.37 X10*6/uL (4.60-5.80); Red Cell Distribution Width 13.1 % (11.0-16.0); White Blood Count 14.7 X10*3/uL (4.8-10.8)
[2020-06-09 05:43] LABS: INTERNATIONAL NORM RATIO 1.5 (0.9-1.1); Prothrombin Time 17.9 SEC (10.8-13.0)
[2020-06-09] MEDS: Ascorbic Acid 500 MG TABLET 1000 MG PO ×3 (05:52→17:28)
[2020-06-09] MEDS: Insulin Regular/NS 100 UNIT/100 ML PLAST..BAG 6 UNIT IVCONT (05:52)
[2020-06-09 05:56] LABS: Base Excess VBG -1.5 mmol/L; HCO3 VBG 24 mmol/L; Oxygen Saturation VBG 86.5 %; PCO2 VBG 42 mmhg; PO2 VBG 57 mmhg; pH VBG 7.37 (7.32-7.43)
[2020-06-09 05:58] LABS: C Reactive Protein 20.39 mg/dL (< or = 0.50); Lactate Dehydrogenase 565 U/L (118-273); Magnesium 2.1 mg/dL (1.6-2.6); Phosphorus 3.4 mg/dL (2.7-4.5)
[2020-06-09 06:01] LABS: Anion Gap 16 (12-20); Blood Urea Nitrogen 72 mg/dL (9-16); Calcium 7.1 mg/dL (8.4-10.2); Carbon Dioxide 25 mmol/L (22-29); Chloride 102 mmol/L (96-108); Creatinine Clr Calc Pharmacy 27.9; Estimated Glomerular Filt Rate 25; Glucose Random 62 mg/dL (60-115); Potassium 3.7 mmol/l (3.3-5.1); Sodium 139 mmol/L (135-145)
[2020-06-09 06:03] LABS: B Type Natriuretic Peptide 599 pg/mL (<100)
[2020-06-09 06:28] LABS: Ferritin 1348 ng/mL (20-250)
[2020-06-09 06:56] LABS: Procalcitonin 2.14 ng/mL
--- NOTE | 2020-06-09 08:12 | PC.NURSE ---
Pt's poc low at 26mg/dl. Dr Andrade notified via phone, ordered 50ml D50% IVP, and to recheck poc in 30 min. does not want chemistry lab work to be drawn at this time. Pt also given apple juice x2 per primary RN at bedside.
[2020-06-09] MEDS: Dextrose 50 % 25 GM/50 ML SYRINGE IVPUSH (08:34)
[2020-06-09 08:40] LABS: D Dimer 977 NG/ML
[2020-06-09] MEDS: methylPREDNISolone Sod Succ/PF 125 MG/2 ML VIAL 80 MG IVPUSH ×2 (08:51→20:28)
[2020-06-09] MEDS: Thiamine HCL 200 MG/2 ML VIAL IVPUSH ×2 (08:52→20:29)
[2020-06-09 09:10] LABS: Glucose, Whole Blood 167 mg/dL (60-115)
[2020-06-09 09:10] LABS: Glucose, Whole Blood 26 mg/dL (60-115)
[2020-06-09] MEDS: Sennosides 8.6 MG TABLET 17.2 MG PO (09:34)
[2020-06-09] MEDS: Famotidine 20 MG TABLET PO ×2 (09:34→20:29)
[2020-06-09] MEDS: Aspirin Enteric Coated 81 MG TABLET.DR PO (09:35)
[2020-06-09] MEDS: Sertraline HCL 100 MG TABLET PO (09:35)
[2020-06-09] MEDS: Calcium + Vitamin D 250 MG TABLET PO ×2 (09:35→20:29)
[2020-06-09] MEDS: Atorvastatin Calcium 80 MG TABLET PO (09:35)
[2020-06-09] MEDS: 0.9 % Sodium Chloride Flush 3 ML SYRINGE IVFLUSH ×2 (09:36→17:26)
[2020-06-09 10:48] LABS: Glucose, Whole Blood 315 mg/dL (60-115)
[2020-06-09 11:01] LABS: PTT Heparin Drip 61.6 SEC (53-77.9)
[2020-06-09] MEDS: fentaNYL citrate/PF 100 MCG/2 ML VIAL 50 MCG IVPUSH (11:44)
[2020-06-09] MEDS: diphenhydrAMINE HCL 50 MG/ML VIAL 25 MG IVPUSH (12:52)
[2020-06-09] MEDS: dexmedeTOMIDidine HCL/NS 400 MCG/100 ML INFUS..BTL 9.93 MCG IVCONT (13:33)
[2020-06-09 13:44] LABS: Glucose, Whole Blood 311 mg/dL (60-115)
--- NOTE | 2020-06-09 14:04 | P.PNCC_ITS ---
Subjective Subjective Date of Service: 06/09/20 Interval History: Mr. Delong was admitted to the ICU on June 06 with acute respiratory failure secondary to severe COVID-19 pneumonia. The patient has DM on insulin pump, HTN, CKD, s/p kidney transplant in 2015, hypertension, dyslipidemia, osteoporosis and hypogonadism. On Tacrolimus and Cellcept. Tested positive for COVID on May 28, reportedly bec family member had it. Started have symptoms on around Jun 04, w cough and SOB. BIBA to the ED on Jun 06 because he was having increased shortness of breath, decreased po intake. EM S reported sat was 55% on room air, was henao and grunting . When he arrived at the ED, his O2 sat was 77% on 100% non rebreather. Afebril. CXR was c/w severe COVID pneumonia, right side worse than left. Labs in ED notable for WBC 9.7, K 6.0, CO2 20, BUN/creat 49/3.2 (baseline 1.7), Ferritin 699, LDH 332, CRP 26.46, procalcitonin 0.36, lactic acid 1.3. In the ED, he was put on BiPAP at 100% FiO2. Sat up to high 90?s. Admitted to ICU and changed to 90% HFNC, w sat 90%. Was febrile to 102? on arrival to ICU. We started him on the full EVMS COVID protocol, include Solu-Medrol 80 mg bid In the morning, we took him off BiPAP and put him on 100% high flow. WOB was OK but Sat?s dropping below 90%. We added NRBFM in order to placed a triple lumen catheter, which went in without incident. F/U CXR showed much worse infiltrates bilat. Also suggestive of pulmon edema. BNP was 888. Echo done by the tech at the bedside: - LV fxn difficult to say, even w Diffinity. EF prob 60%. - LV cavity size prob normal. - RV cavity size top normal - Tricuspid jet 3.4m/sec, gradient 46mm - IVC dilated w minimal insp collapse. RVSP estimate therefore about [address] Jackson. Bolused with Bumex and started a drip. He diuresed for a day, but then we stopped the Bumex last nite bec of rising BUN and creat. We increased his anticoagulation to full dose heparin bec of failure to improve oxygenation and increased DDimer. Last night had an episode of desaturation assoc with delirium. Recovered OK. Venous blood gas pCO2 levels been running in the 40?s. Early this morning, suppl oxygen was down to only the HFNC 100%, he was off the NRBFM, and Sat?ing 95%. CVBG showed 7.37/42. Then about 8am, had a rapid desat into the 40s, prob bec he took his HFNC off. Went back onto the HFNC + NRBFM. Spent most of the morning w Sat mid-high 80?s with significant agitation, if not mild delirium. See Vital Signs below. Now he?s on the HFNC 100% w 15L NRBFM, on Precedex 0.5ug, and had a dose of Dialudid 0.5mg. RR is 19, Sat?ing 93%. Some belly breathing, the usual for an obese male with a large belly, but no other incr WOB or access musc use. HR 78, BP 152/51. Spiked temp to 100.8 this afternoon. U/O averaging 30-40cc/hr. LABORATORY DATA: As below. Notably, point of care glucose had an episode down to 26 this morning. Now back up above 300 after breakfast, but starting to turn back down. BUN and creatinine up to 72/2.6. D-dimer steady, ferritin up to 1348, LDH steady, CRP down to 20, procalcitonin down to 2.1. MICROBIOLOGY: Blood cultures from June for came back with coagulase negative Staph in 1 bottle out of each set. IMPRESSION: 1. Severe bilateral COVID-19 pneumonia. Continue tx with EVMS protocol. 2. Acute hypoxemic respiratory failure. Secondary to above. We?re doing everything we can to avoid intubation. Hoping that the steroids and anticoagulation and other COVID tx will kick in and prevent that need, although it looks borderline at this time. For now, we?ll keep going as long as WOB is OK. Check VBG bid. 3. PRICILLA. Slightly worse today so we stopped the Bumex. Following. 4. Volume overload/acute pulmon edema? Forced to stop the Bumex. 5. ID. Positive BC?s most likely contaminants ? altho strange they should be in both sets, unless it was one needle. No clear clinical evidence of sepsis (i.e. no septic shock or new septic breathing, altho WBC is up, new low grade temp, and increasing delirium ? all of which could be due to sepsis, or something else, like COVID. Recultured this morning, and started on Vancomycin. No indication for a fluid bolus (which, in fact, is contraindicated.) 6. Nutrition. Po intake as tolerated. Had some breakfast this morning. Prognosis is very guarded. Critical care time (include mult visits to the bedside): 70+ min. Physical Exam Vital Signs: Vital Signs: Last Vital Signs Temp 100.8 F H 06/09/20 13:00 Pulse 78 06/09/20 13:00 Resp 24 H 06/09/20 13:00 BP 152/51 H 06/09/20 13:00 Pulse Ox 90 L 06/09/20 13:00 Body Mass Index 30.0 Objective Data Labs CBC & Chem 7: 06/09/20 05:06 06/09/20 05:06 Labs: Laboratory Results - last 24 hr 06/08/20 06/08/20 06/08/20 04:10 17:00 17:00 WBC RBC Hgb Hct MCV MCH MCHC RDW Plt Count MPV Absolute Nucleated RBC Nucleated RBC % (auto) PT INR PTT (Heparin Protocol) D-Dimer VBG pH 7.37 VBG pCO2 40 VBG Oxygen Liters/Min TNP VBG pO2 35 VBG HCO3 23 VBG O2 Saturation 64.1 VBG Base Excess -2.2 Sodium 135 Potassium 3.9 Chloride 100 Carbon Dioxide 22 Anion Gap 17 BUN 64 H Creatinine 2.50 H Estim Creat Clear Calc 29.1 Estimated GFR 26 POC Glucose Random Glucose 336 H D Calcium 6.9 L Phosphorus Magnesium Ferritin Lactate Dehydrogenase C-Reactive Protein B-Natriuretic Peptide Procalcitonin Tacrolimus 23.6 06/08/20 06/08/20 06/08/20 20:03 21:50 23:03 WBC RBC Hgb Hct MCV MCH MCHC RDW Plt Count MPV Absolute Nucleated RBC Nucleated RBC % (auto) PT INR PTT (Heparin Protocol) D-Dimer VBG pH 7.33 VBG pCO2 46 VBG Oxygen Liters/Min TNP VBG pO2 57 VBG HCO3 24 VBG O2 Saturation 84.3 VBG Base Excess -2.5 Sodium Potassium Chloride Carbon Dioxide Anion Gap BUN Creatinine Estim Creat Clear Calc Estimated GFR POC Glucose 259 H 185 H Random Glucose Calcium Phosphorus Magnesium Ferritin Lactate Dehydrogenase C-Reactive Protein B-Natriuretic Peptide Procalcitonin Tacrolimus 06/09/20 06/09/20 06/09/20 00:08 00:08 02:50 WBC RBC Hgb Hct MCV MCH MCHC RDW Plt Count MPV Absolute Nucleated RBC Nucleated RBC % (auto) PT INR PTT (Heparin Protocol) 164.0 H* D-Dimer VBG pH 7.32 VBG pCO2 48 VBG Oxygen Liters/Min TNP VBG pO2 43 VBG HCO3 24 VBG O2 Saturation 73.6 VBG Base Excess -2.3 Sodium Potassium Chloride Carbon Dioxide Anion Gap BUN Creatinine Estim Creat Clear Calc Estimated GFR POC Glucose 105 Random Glucose Calcium Phosphorus Magnesium Ferritin Lactate Dehydrogenase C-Reactive Protein B-Natriuretic Peptide Procalcitonin Tacrolimus 06/09/20 06/09/20 06/09/20 03:00 03:05 05:06 WBC RBC Hgb Hct MCV MCH MCHC RDW Plt Count MPV Absolute Nucleated RBC Nucleated RBC % (auto) PT 17.9 H INR 1.5 H PTT (Heparin Protocol) 73.0 D D-Dimer VBG pH 7.40 VBG pCO2 39 VBG Oxygen Liters/Min TNP VBG pO2 61 VBG HCO3 23 VBG O2 Saturation 88.6 VBG Base Excess -1.3 Sodium Potassium Chloride Carbon Dioxide Anion Gap BUN Creatinine Estim Creat Clear Calc Estimated GFR POC Glucose Random Glucose Calcium Phosphorus Magnesium Ferritin Lactate Dehydrogenase C-Reactive Protein B-Natriuretic Peptide Procalcitonin Tacrolimus 06/09/20 06/09/20 06/09/20 05:06 05:06 05:06 WBC 14.7 H RBC 3.37 L Hgb 9.7 L Hct 30.3 L MCV 89.9 MCH 28.8 MCHC 32.0 RDW 13.1 Plt Count 321 MPV 8.9 L Absolute Nucleated RBC 0.030 H Nucleated RBC % (auto) 0.2 PT INR PTT (Heparin Protocol) D-Dimer VBG pH VBG pCO2 VBG Oxygen Liters/Min VBG pO2 VBG HCO3 VBG O2 Saturation VBG Base Excess Sodium Potassium Chloride Carbon Dioxide Anion Gap BUN Creatinine Estim Creat Clear Calc Estimated GFR POC Glucose Random Glucose Calcium Phosphorus 3.4 Magnesium 2.1 Ferritin 1348 H Lactate Dehydrogenase 565 H C-Reactive Protein 20.39 H B-Natriuretic Peptide 599 H Procalcitonin Tacrolimus 06/09/20 06/09/20 06/09/20 05:06 05:06 05:06 WBC RBC Hgb Hct MCV MCH MCHC RDW Plt Count MPV Absolute Nucleated RBC Nucleated RBC % (auto) PT INR PTT (Heparin Protocol) D-Dimer VBG pH 7.37 VBG pCO2 42 VBG Oxygen Liters/Min TNP VBG pO2 57 VBG HCO3 24 VBG O2 Saturation 86.5 VBG Base Excess -1.5 Sodium 139 Potassium 3.7 Chloride 102 Carbon Dioxide 25 Anion Gap 16 BUN 72 H Creatinine 2.60 H Estim Creat Clear Calc 27.9 Estimated GFR 25 POC Glucose Random Glucose 62 D Calcium 7.1 L Phosphorus Magnesium Ferritin Lactate Dehydrogenase C-Reactive Protein B-Natriuretic Peptide Procalcitonin 2.14 Tacrolimus 06/09/20 06/09/20 06/09/20 07:40 07:48 08:13 WBC RBC Hgb Hct MCV MCH MCHC RDW Plt Count MPV Absolute Nucleated RBC Nucleated RBC % (auto) PT INR PTT (Heparin Protocol) D-Dimer 977 VBG pH VBG pCO2 VBG Oxygen Liters/Min VBG pO2 VBG HCO3 VBG O2 Saturation VBG Base Excess Sodium Potassium Chloride Carbon Dioxide Anion Gap BUN Creatinine Estim Creat Clear Calc Estimated GFR POC Glucose 26 L* 167 H Random Glucose Calcium Phosphorus Magnesium Ferritin Lactate Dehydrogenase C-Reactive Protein B-Natriuretic Peptide Procalcitonin Tacrolimus 06/09/20 06/09/20 06/09/20 10:11 10:23 13:25 WBC RBC Hgb Hct MCV MCH MCHC RDW Plt Count MPV Absolute Nucleated RBC Nucleated RBC % (auto) PT INR PTT (Heparin Protocol) 61.6 D-Dimer VBG pH VBG pCO2 VBG Oxygen Liters/Min VBG pO2 VBG HCO3 VBG O2 Saturation VBG Base Excess Sodium Potassium Chloride Carbon Dioxide Anion Gap BUN Creatinine Estim Creat Clear Calc Estimated GFR POC Glucose 315 H 311 H Random Glucose Calcium Phosphorus Magnesium Ferritin Lactate Dehydrogenase C-Reactive Protein B-Natriuretic Peptide Procalcitonin Tacrolimus Microbiology Microbiology Results: Microbiology 06/06/20 22:36 Blood - Venous Blood Culture - Preliminary Coag negative Staphylococcus 06/06/20 22:36 Blood - Venous Blood Culture - Preliminary Progress Note: A&P Time Spent With Patient Time: Total time spent is greater than 50% in coordination of care (as documented) at patient's floor/unit and/or counseling patient: Total time spent with greater than 50% in coordination of care (as documented) at patient's floor/unit and/or counseling patient:: 0 Critical Care Time Critical Care Time (minutes): 60
[2020-06-09] MEDS: Magnesium Sulfate/D5W 1 GM/100 ML PIGGYBACK IV (15:05)
[2020-06-09 16:35] LABS: PCO2 VBG 43 mmhg; PO2 VBG 39 mmhg; pH VBG 7.35 (7.32-7.43)
[2020-06-09 16:36] LABS: Base Excess VBG -2.2 mmol/L; Blood Gas Serial # 5414; HCO3 VBG 23 mmol/L; Oxygen Saturation VBG 70.1 %
[2020-06-09 16:42] LABS: PTT Heparin Drip 59.8 SEC (53-77.9)
[2020-06-09 17:12] LABS: Anion Gap 18 (12-20); Blood Urea Nitrogen 79 mg/dL (9-16); Calcium 7.1 mg/dL (8.4-10.2); Carbon Dioxide 21 mmol/L (22-29); Chloride 102 mmol/L (96-108); Creatinine Clr Calc Pharmacy 22.7; Estimated Glomerular Filt Rate 20; Glucose Random 264 mg/dL (60-115); Potassium 4.1 mmol/l (3.3-5.1); Sodium 137 mmol/L (135-145)
[2020-06-09] MEDS: Doxycycline Hyclate 100 MG in 0.9 % Sodium Chloride 250 ML 166.67 MG IV (17:27)
[2020-06-09] MEDS: Acetaminophen 325 MG TABLET 650 MG PO (17:28)
[2020-06-09] MEDS: Bumetanide 1 MG/4 ML VIAL 4 MG IVPUSH (17:28)
[2020-06-09] MEDS: Heparin Sodium,Porcine/1/2NS 25,000 UNIT/250 ML IV.SOLN 8.97 UNIT IVCONT (17:30)
[2020-06-09] MEDS: EPINEPHrine 1 MG/ML VIAL IVPUSH (18:53)
--- NOTE | 2020-06-09 19:15 | PC.NURSE ---
At 1830 pt suddenly desat'ed and had increased work of breathing with noticeable grunting, tracheal tugging, abd breathing. called and is on the way to the hosp. At 1842 all staff needed to intubate were at the bedside. Dr Andrade ordered 70mg Rocuronium IVP, 50mg Ketamine IVP, and 50mcg epi 1:10,000 IVP. Pt intubated at 1853 with 8.0 et tube 24cm at the lip. VS HR 120, spo2 89% (with 100% O2 via BVM), BP 133/60, Core temp 102.0. OG Tube placed and secured. Stat chest xray ordered. Propfol IV started at 1900 at 20mcg/kg/min. Pt in restraints to prevent pt grabbing et tube.
--- NOTE | 2020-06-09 19:17 | W.PM.CCHP ---
Procedures Intubation Intubation Comments: PROCEDURE NOTE: Emergent tracheal intubation. INDICATIONS: Bilateral COVID pneumonia, with respiratory and incipient ventilatory failure. Anesthesia: ketamine 50 mg, Zemuron 70 mg. I was to called in to see the patient bec of resp distress. He was awake and interactive, mild-mod resp distress, grunting, with SpO2 87% on HFNC 60L/100% plus NRBFM on half flush. Respiratory/ventilatory situation no longer tenable. The patient agreed to intubation. PROCEDURE: The patient was preoxygenated on the above. He was given epinephrine 50 mcg, immediately followed by the ketamine and Zemuron. Tracheal intubation was accomplished with the Glidescope video laryngoscope, #3, on the 1st attempt, atraumatic. There was good colorimetric end-tidal CO2. Ino SpO2 was 67%. No bradycardia or hypotension occurred. Follow-up chest x-ray showed the tube 1.8 cm above the joe , with the tube set at 24 cm at the upper lip.. The patient meka the procedure well with no complications.
--- NOTE | 2020-06-09 19:20 | XR_ITS ---
EXAMINATION: XR CHEST CLINICAL INFORMATION: Tube placement. COMPARISON: Chest x-ray 06/07/2020 TECHNIQUE: Frontal portable view of the chest was obtained. 7:11 PM FINDINGS: Tubes and lines: 1. Endotracheal tube 2.6 cm above joe. 2. Right IJ catheter tip at cavoatrial junction. 3. Nasogastric tube in stomach. There is persistent diffuse bilateral extensive airspace opacities unchanged since prior study of 06/07/2020. There is no pleural effusion. There is no pneumothorax. XR/XR chest 1V IMPRESSION: 1. Endotracheal tube 2.6 cm above joe. 2. Right IJ catheter tip at cavoatrial junction. There is no pneumothorax 3. Nasogastric tube in stomach. 4. Diffuse extensive bilateral airspace disease unchanged since prior study 06/07/2020.
[2020-06-09 19:25] LABS: Glucose, Whole Blood 263 mg/dL (60-115)
--- NOTE | 2020-06-09 19:33 | PM.CCN ---
Critical Care Event Note Summary Code activated: No <MOHSEN Rodríguez - Last Filed: 06/09/20 19:39> Narrative: This case had a high probability of a clinically significant, sudden, or life threatening deterioration of this patient's condition which required my full and direct attention, intervention and personal management. Today, patient respiratory rate in the low 20s, O2 saturation 92%, multiple episodes of desatting into the 60's, verbalizing he is getting tired and he felt like he was drowning , using accessory muscles to breathe, started grunting, agreed to intubation. at the bedside with Dr. Andrade, assessing pt, we decided to intubate pt. Dr. Andrade intubated the pt. <MOHSEN Rodríguez - Last Filed: 06/09/20 19:39> Critical Care Time (minutes): 30 <MOHSEN Rodríguez Last Filed: 06/09/20 19:39>
--- NOTE | 2020-06-09 20:06 | PM.PNNEP ---
Subjective Subjective Interval history: Seen and examined. Evenrts noted. Cont high O2 requirements. Confused on/off...pulled out his IV Physical Exam Vital Signs: Vital Signs: Last Vital Signs Temp 102 F H 06/09/20 19:00 Pulse 87 06/09/20 19:00 Resp 20 06/09/20 19:00 BP 150/67 H 06/09/20 19:00 Pulse Ox 91 L 06/09/20 19:00 Body Mass Index 30.0 VITAL SIGNS: Reviewed. GENERAL: Well developed, well nourished, in no acute distress. HEAD: Normocephalic/atraumatic, EYES: PERRLA, EOMI intact without pain, no nystagmus/pallor/icterus noted EARS: Ext canals without abnormality, TMs non-bulging and non-erythematous NOSE: Nares patent bilateral OROPHARYNX: no oral lesions noted, posterior pharynx clear and non-erythematous without noted tonsillar enlargement/erythema/exudates NECK: Supple, no adenopathy LUNGS: grunting, accessory muscle use, tachypnea,+adventitious sounds and accessory muscle use. SpO2<77>On 100% non-rebreather CARDIOVASCULAR: Regular rate and rhythm without noted murmurs, no JVD or lower extremity edema. ABDOMEN: Soft, non-tender, non-distended with bowel sounds. No rigidity. No guarding. No palpable masses or hernias noted MUSCULOSKELETAL: No tenderness, deformities, or effusions noted on gross inspection. EXTREMITIES: No cyanosis, clubbing or edema; LUE: AV fistula that is not currently being used. SKIN: Inspection of the skin reveals no rashes, ulcerations, jaundice, pallor, or petechiae. NEUROLOGIC: Alert and oriented x 4. Strength and sensation to light touch were grossly intact x 4. 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) HENMT: Other: wearing a BiPAP mask Head: Yes normal to inspection Eyes: General: appearance normal, both eyes and all related structures EOM: EOMs intact bilaterally Neck: Neck: Yes normal visual inspection, Yes full ROM and Yes supple Resp: Effort & Inspection: normal respiratory effort (on Bipap) and able to speak in complete sentences Auscultation: bronchovesicular breath sounds Cardio: Rate: regular rate Rhythm: regular rhythm Heart sounds: normal S1 and S2 GI: Inspection: Yes obesity Palpation (GI): Soft to palpation and nontender Auscultation: normal bowel sounds Skin: General skin exam: no rashes or lesions noted Neuro: General: patient oriented x3 Cognition (Neuro): normal cognition Extrem: Other: has CGM on leg, fistula on left arm General: Yes normal to inspection and Yes no pedal edema Assessment & Plan Assessment and plan (1) COVID-19 virus infection: Status: Acute (2) Respiratory failure with hypoxia: Status: Acute (3) Hypomagnesemia: Status: Acute (4) Hypertension: Status: Chronic (5) Diabetes mellitus type 2, with complication, on intermediate project manager insulin pump: Status: Chronic (6) Acute hyperkalemia: Problem details: 6.0 mmol/L Status: Acute (7) PRICILLA (acute kidney injury): Status: Acute (8) Hyponatremia: Problem details: 126 mmol/L Status: Acute (9) Hypophosphatemia: Problem details: 2.0 Status: Acute Assessment and Plan: 1. Non-Oligric PRICILLA: SCr again incr; still most c/w multifact ATN from COVID assoc cyokine injury; renal hypoperfsuion and renal thrombosis all potential contributors; acute rejection seems unlikely as does Obs; Covid direct renal injury remains a consideration but unclear if covid is directly neohrotoxic high tacro level raises cocnern about acute Tacro kidney Neohrotoxicity 2. CKD 3: bsl SCr 1.7 c/w DN and prior rejection of xplant kidey 3. Resp failure: c/w COVID infection/inflamation/ARDS and ques of pulm edema based on echo 4. IS: normall maintained on tacro/cellcept: will holdcellcept given potential risk of over IS; tacro level markedly elevated for unclear reasons 5. HypoNa: resolved REC: cont to hold cellcept and given torreyley eleavted tacro levels will ghold tonight and tomorrow am ltacro and check am Tacro level; may need to given diuretics if hypoxia worsens in an attmep toavoid intubation no indication for HD at this time but need to follow nicholas as may need UF...has an AVF and coud try to use if and when he need HD/UF Will follow nicholas with ICU team Time Spent With Patient Time: Total time spent is greater than 50% in coordination of care (as documented) at patient's floor/unit and/or counseling patient:
[2020-06-09] MEDS: Rocuronium Bromide 50 MG/5 ML VIAL 70 MG IVPUSH (20:25)
[2020-06-09] MEDS: Ketamine HCl/NS 50 MG/5 ML SYRINGE IVPUSH (20:25)
[2020-06-09] MEDS: Melatonin 3 MG TABLET 9 MG PO (20:29)
[2020-06-09] MEDS: Chlorhexidine Gluc Oral Rinse 15 ML MOUTHWASH BUCCAL (20:29)
[2020-06-09] MEDS: propofoL 1,000 MG/100 ML VIAL 9.84 MG IVCONT (20:42)
[2020-06-09 21:28] LABS: Glucose, Whole Blood 183 mg/dL (60-115)
[2020-06-09 22:14] LABS: Tacrolimus Prograf 19.1
[2020-06-09 22:57] LABS: Glucose, Whole Blood 164 mg/dL (60-115)
[2020-06-10] VITALS (32 sets, daily range): BP systolic 96–143; BP diastolic 42–69; PULSE 70–86; RESP 17–28; TEMP 36.1–38.8; O2SAT 89–98; BMI 30.6
[2020-06-10] MEDS: 0.9 % Sodium Chloride Flush 3 ML SYRINGE IVFLUSH ×3 (00:03→14:15)
--- NOTE | 2020-06-10 00:28 | PC.NURSE ---
[id number] HCP, Manual updated via telephone re: patient status. Propofol titrated to vent synchrony. Difficult to ventilate, fighting vent/desatting with any care. Unable to reposition safely. Limited hygiene provided without causing patient to deteriorate. PA aware. Levo started for soft bp's with sedation. UOP 20-50 cc/hr.
[2020-06-10] MEDS: propofoL 1,000 MG/100 ML VIAL 17.22 MG IVCONT (01:50)
[2020-06-10 02:08] LABS: Glucose, Whole Blood 84 mg/dL (60-115)
[2020-06-10] MEDS: propofoL 1,000 MG/100 ML VIAL 24.6 MG IVCONT ×3 (03:42→11:46)
[2020-06-10] MEDS: HYDROmorphone HCl 0.5 MG/0.5 ML SYRINGE IVPUSH ×2 (03:43→08:11)
[2020-06-10] MEDS: Insulin Regular/NS 100 UNIT/100 ML PLAST..BAG IVCONT (03:43)
[2020-06-10 05:16] LABS: Glucose, Whole Blood 51 mg/dL (60-115)
[2020-06-10 05:16] LABS: Glucose, Whole Blood 162 mg/dL (60-115)
[2020-06-10] MEDS: Doxycycline Hyclate 100 MG in 0.9 % Sodium Chloride 250 ML 166.7 MG IV (05:21)
[2020-06-10] MEDS: Ascorbic Acid 500 MG TABLET 1000 MG PO ×3 (05:21→18:25)
[2020-06-10 05:52] LABS: Hematocrit 30.1 % (42-52); Hemoglobin 9.2 g/dl (14.0-18.0); Mean Corpuscular HGB Conc 30.6 g/dl (31.0-36.0); Mean Corpuscular Hemoglobin 28.5 pg (27.0-33.0); Mean Corpuscular Volume 93.2 fL (80-98); NRBC Pct Auto 0.1 /100WBC (0.0-0.2); Platelet Count 344 X10*3/uL (160-400); Red Blood Count 3.23 X10*6/uL (4.60-5.80); Red Cell Distribution Width 13.5 % (11.0-16.0); White Blood Count 22.3 X10*3/uL (4.8-10.8)
--- NOTE | 2020-06-10 05:57 | PC.NURSE ---
CARE ASSUMED 03:15...REMAINS TUBED/VENTED...VCV/AC SETTINGS...AC20/TV 450/PEEP 14/FIO2 WEANED FROM 100% TO 80%...SAO2 90-91%..PER ICU SANITATION MANAGER SAO2 GOAL >88%...SEDATED WITH PROPOFOL 50 MCG/KG/MIN...PRN DILAUDID X1 FOR TACHYPNEA AND WORK OF BREATHING...BP STABLE WITH LEVOPHED 0.04 MCG/KG/MIN...INSULIN DRIP WEANED FROM 5 UNITS/HR TO 3 UNITS/HR PER SANITATION MANAGER...D50% 1 AMP FOR POC 51 WITH EFFECT...HEPARIN DRIP CONTINUES 10 UNITS/KG/HR..BEVERAGE SPECIALIST UNABLE TO DRAW AM PTT-HD...TO ATTEMPT REDRAW PER TECH..NSR NO ECTOPY
[2020-06-10 06:04] LABS: Base Excess VBG -3.9 mmol/L; HCO3 VBG 23 mmol/L; Oxygen Saturation VBG 84.7 %; PCO2 VBG 49 mmhg; PO2 VBG 56 mmhg; pH VBG 7.29 (7.32-7.43)
[2020-06-10 06:13] LABS: Glucose, Whole Blood 112 mg/dL (60-115)
[2020-06-10 06:20] LABS: B Type Natriuretic Peptide 833 pg/mL (<100)
[2020-06-10 06:27] LABS: Magnesium 2.2 mg/dL (1.6-2.6)
[2020-06-10 06:30] LABS: Alanine Aminotransferase 50 U/L (0-40); Albumin Level 2.9 g/dL (3.5-5.0); Alkaline Phosphatase 139 U/L (39-117); Anion Gap 16 (12-20); Aspartate Amino Transferase 54 U/L (5-37); Blood Urea Nitrogen 81 mg/dL (9-16); Calcium 7.2 mg/dL (8.4-10.2); Carbon Dioxide 24 mmol/L (22-29); Chloride 104 mmol/L (96-108); Creatinine Clr Calc Pharmacy 21.5; Estimated Glomerular Filt Rate 19; Glucose Random 115 mg/dL (60-115); Sodium 140 mmol/L (135-145); Total Protein 5.4 g/dL (6.5-8.0)
[2020-06-10 06:47] LABS: Ferritin 1416 ng/mL (20-250)
[2020-06-10 07:31] LABS: Procalcitonin 3.38 ng/mL
--- NOTE | 2020-06-10 08:04 | PC.RT ---
0808 Pt on AC/VC. Peak flow changed to decrease WOB and breath stacking. Pt on 14 of peep and pulling below base line. RN giving Dilaudid to improve ventilation. Plat: 27 Comp: 33. Large amount of oral secretion causing broncho spasms and desat to 82. Thin, clear, sticky.
[2020-06-10] MEDS: methylPREDNISolone Sod Succ/PF 125 MG/2 ML VIAL 80 MG IVPUSH ×2 (08:08→20:55)
[2020-06-10] MEDS: Chlorhexidine Gluc Oral Rinse 15 ML MOUTHWASH BUCCAL ×3 (08:08→20:56)
[2020-06-10] MEDS: Sennosides 8.6 MG TABLET 17.2 MG PO (08:09)
[2020-06-10] MEDS: Famotidine 20 MG TABLET PO ×2 (08:10→20:56)
[2020-06-10] MEDS: Atorvastatin Calcium 80 MG TABLET PO (08:10)
[2020-06-10] MEDS: Calcium + Vitamin D 250 MG TABLET PO ×2 (08:10→20:57)
[2020-06-10 08:26] LABS: Glucose, Whole Blood 94 mg/dL (60-115)
[2020-06-10 08:52] LABS: D Dimer 3022 NG/ML
[2020-06-10 08:53] LABS: PTT Heparin Drip 74.9 SEC (53-77.9)
[2020-06-10] MEDS: Thiamine HCL 200 MG in 0.9 % Sodium Chloride 100 ML 204 MG IV (09:45)
[2020-06-10 11:59] LABS: Vancomycin Random 12.7 mcg/mL (15-20)
[2020-06-10] MEDS: fentaNYL citrate/NS 1,000 MCG/100 ML PLAST..BAG 5 MCG IVCONT (12:28)
[2020-06-10] MEDS: HYDROmorphone HCl 1 MG/ML SYRINGE IVPUSH (12:28)
[2020-06-10] MEDS: Sertraline HCL 100 MG TABLET PO (12:29)
[2020-06-10] MEDS: Aspirin 81 MG TAB.CHEW PO (12:43)
[2020-06-10 14:09] LABS: Glucose, Whole Blood 107 mg/dL (60-115)
[2020-06-10 14:09] LABS: Glucose, Whole Blood 84 mg/dL (60-115)
[2020-06-10] MEDS: vancomycin HCL 1,000 MG in 0.9 % Sodium Chloride 250 ML 270 MG IV (14:14)
[2020-06-10] MEDS: Piperacillin Sodium/Tazobactam 2.25 GM in 0.9 % Sodium Chloride 50 ML IV ×2 (14:14→18:45)
[2020-06-10 16:29] LABS: Glucose, Whole Blood 118 mg/dL (60-115)
--- NOTE | 2020-06-10 16:36 | PM.PNNEP ---
Subjective Subjective Interval history: Seen and examined. Evenrts noted. Intubated last nite Physical Exam Vital Signs: Vital Signs: Last Vital Signs Temp 98.1 F 06/10/20 15:00 Pulse 72 06/10/20 15:00 Resp 22 H 06/10/20 15:00 BP 127/59 L 06/10/20 15:00 Pulse Ox 95 06/10/20 15:00 Body Mass Index 30.6 VITAL SIGNS: Reviewed. GENERAL: on vent HEAD: Normocephalic/atraumatic, EYES: LUNGS: decrease BS bilat CARDIOVASCULAR: Regular rate and rhythm without noted murmurs, ABDOMEN: Soft, non-tender, non-distended with bowel sounds. No rigidity. No guarding. No palpable masses or hernias noted MUSCULOSKELETAL: No tenderness, deformities, or effusions noted on gross inspection. EXTREMITIES: No cyanosis, clubbing or edema; LUE: AV fistula w bruit/thrill SKIN: Inspection of the skin reveals no rashes, ulcerations, jaundice, pallor, or petechiae. NEUROLOGIC: Const: Limitations: language barrier (Speaks Japanese, used hourly sign language interpreter) HENMT: Other: wearing a BiPAP mask Resp: Effort & Inspection: normal respiratory effort (on Bipap) GI: Palpation (GI): nontender Skin: General skin exam: no rashes or lesions noted Extrem: Other: fistula on left arm General: Yes normal to inspection Assessment & Plan Assessment and plan (1) COVID-19 virus infection: Status: Acute (2) Respiratory failure with hypoxia: Status: Acute (3) Hypomagnesemia: Status: Acute (4) Hypertension: Status: Chronic (5) Diabetes mellitus type 2, with complication, on group home insulin pump: Status: Chronic (6) Acute hyperkalemia: Problem details: 6.0 mmol/L Status: Acute (7) PRICILLA (acute kidney injury): Status: Acute (8) Hyponatremia: Problem details: 126 mmol/L Status: Acute (9) Hypophosphatemia: Problem details: 2.0 Status: Acute Assessment and Plan: 1. Non-Oligric PRICILLA: SCr again incr; still most c/w multifact ATN from COVID assoc cyokine injury; renal hypoperfsuion and renal thrombosis all potential contributors; acute rejection seems unlikely as does Obs; Covid direct renal injury remains a consideration but unclear if covid is directly neohrotoxic Tacro level 10/7 very elevated at 26 and may be playing signif role in PRICILLA d/t renal vasocnstriction 2. CKD 3: bsl SCr 1.7 c/w DN and prior rejection of xplant kidey 3. Resp failure: c/w COVID infection/inflamation/ARDS and ques of pulm edema based on echo 4. IS: normall maintained on tacro/cellcept: will hold cellcept given potential risk of over IS; tacro level markedly elevated for unclear reasons as not on meds thatinterfer metabolism tacro last nite and this am placed on hold with this am tacro pending 5. HypoNa: resolved REC: cont to hold cellcept and given josr eleavted tacro level 10/7 will wait until todays level comes back t/d dosing no indication for HD at this time but need to follow nicholas as may need UF...has an AVF and could use if and when he need HD/UF Addendum: tacro bhaskar back at 12 this am...will order tacro 0.5 qpm and 1mg qam BUT NEED TO CHECK TACRO in am and send to [facility] [place] to get results same day as we adjust dosing to maintian tacro in 5-8 range Will follow nicholas with ICU team Time Spent With Patient Time: Total time spent is greater than 50% in coordination of care (as documented) at patient's floor/unit and/or counseling patient:
--- NOTE | 2020-06-10 16:43 | P.PNCC_ITS ---
Subjective Subjective Interval History: Mr. Delong was admitted to the ICU on June 06 with acute respiratory failure secondary to severe COVID-19 pneumonia. The patient has DM on insulin pump, HTN, CKD, s/p kidney transplant in 2015, hypertension, dyslipidemia, osteoporosis and hypogonadism. On Tacrolimus and Cellcept. Tested positive for COVID on May 28, reportedly bec family member had it. Started have symptoms on around Jun 04, w cough and SOB. BIBA to the ED on Jun 06 because he was having increased shortness of breath, decreased po intake. EMS reported sat was 55% on room air, was henao and grunting . When he arrived at the ED, his O2 sat was 77% on 100% non rebreather. Afebrile. CXR was c/w severe COVID pneumonia, right side worse than left. Labs in ED notable for WBC 9.7, K 6.0, BUN/creat 49/3.2 (baseline 1.7), Ferritin 699, LDH 332, CRP 26, procalcitonin 0.3, lactic acid 1.3. In the ED, he was put on BiPAP at 100% FiO2. Sat up to high 90?s. Admitted to ICU and changed to 90% HFNC, w sat 90%. Was febrile to 102? on arrival to ICU. We started him on the full [facility] COVID protocol, include Solu-Medrol 80 mg bid. In the morning, we took him off BiPAP and put him on 100% high flow. WOB was OK but Sat?s dropping below 90%. We added NRBFM and placed a triple lumen cathet er. F/U CXR showed much worse infiltrates bilat. Also suggestive of pulmon edema. BNP was 888. Echo done by the tech at the bedside: - LV fxn difficult to say, even w Diffinity. EF prob 60%. - LV cavity size prob normal. - RV cavity size top normal - Tricuspid jet 3.4m/sec, gradient 46mm - IVC dilated w minimal insp collapse. RVSP estimate therefore about 60 mm. Bolused with Bumex and started a drip. He diuresed only a small amount, and then the next day we stopped the Bumex bec of rising BUN and creat. We increased his anticoagulation to full dose heparin bec of failure to improve oxy genation and increased DDimer. The night before last and yesterday, was able to come off the NRBFM with good Sat?s on just the 100% high flow alone. But he also had mult episodes of desaturation, alva when he took the HFNC off. We had to start Precedex to keep him calm, and use mult small boluses of Dilaudid to control his WOB. Yesterday evening though, he developed increased WOB which we could not recover. Started grunting. Untenable resp and ventilator status, therefore we intubated the trachea. Spent most of the night on 90% FiO2. He failed PCV, changed to AC mode with PEEP up to 14cm. This morning added a fentanyl drip, which calmed his resp dysynchrony and allowed the FiO2 to come down to 70%. See Vital Signs below. Currently on AC 20/450cc/70%/+14, with RR 22, PIP 33, Ve 9L, SpO2 91%, ETCO2 30. HR 74, BP 125/52. Mild belly breathing. Spiked temps yest to 102?. Been afebrile since 0200 this morning. Pupils are unequal: right about 3mm, sluggish, left about 1.5mm. U/O averaging 40-50cc/hr. LABORATORY DATA: As below. Notably, white count spike to 22 this morning. D- dimer spiked to 3000. POCs running in the low 100 range. BUN and creatinine up to 81/3.2. Phosphorus up to 4.0. Ferritin up to 1400, mild transaminase elevation, CRP and procalcitonin up slightly. MICROBIOLOGY: Blood cultures from June 06 came back with coagulase negative Staph in 1 bottle out of each set, was started on vancomycin. F/U BCs Jun 09 negative so far. Vanco was continued and Zosyn added this morning bec of increased WBC and biomarkers, and deteriorating resp status. IMPRESSION: 1. Severe bilateral COVID-19 pneumonia. Continue tx with [facility] protocol. 2. Acute hypoxemic respiratory failure. Secondary to above. Came to a head last night, unable to avoid intubation. 3. PRICILLA. Gave him a 4mg bolus of Bumex last night, put out maybe 300cc from that. Renal indices worsening. May very well progress to dialysis. Still has working fistula with a thrill in left arm. Dr. Jackson following. 4. Volume overload/acute pulmon edema? No signif response to the Bumex. 5. ID. Positive BC?s were most likely contaminants. But now with temp and WBC and declining resp status, we were forced to add antibiotics. No clear evidence of bacterial sepsis. 6. Nutrition. Started on Nepro. 7. Hyperglycemia. On insulin gtt. 8. Tacrolimus: Dose 1/2 mg tonight, 1mg tomorrow AM, recheck AM level tomorrow. Prognosis is very guarded. Critical care time (include mult visits to the bedside, multiple insulin changes, d/w renal): 70+ min. Physical Exam Vital Signs: Vital Signs: Last Vital Signs Temp 98.1 F 06/10/20 15:00 Pulse 72 06/10/20 15:00 Resp 22 H 06/10/20 15:00 BP 127/59 L 06/10/20 15:00 Pulse Ox 95 06/10/20 15:00 Body Mass Index 30.6 Objective Data Labs CBC & Chem 7: 06/10/20 05:37 06/10/20 05:37 Labs: Laboratory Results - last 24 hr 06/09/20 06/09/20 06/09/20 05:06 16:09 16:09 WBC RBC Hgb Hct MCV MCH MCHC RDW Plt Count MPV Absolute Nucleated RBC Nucleated RBC % (auto) PTT (Heparin Protocol) 59.8 D-Dimer VBG pH VBG pCO2 VBG Oxygen Liters/Min VBG pO2 VBG HCO3 VBG O2 Saturation VBG Base Excess Sodium 137 Potassium 4.1 Chloride 102 Carbon Dioxide 21 L Anion Gap 18 BUN 79 H Creatinine 3.06 H Estim Creat Clear Calc 22.7 Estimated GFR 20 POC Glucose Random Glucose 264 H D Calcium 7.1 L Phosphorus Magnesium Ferritin Total Bilirubin AST ALT Alkaline Phosphatase C-Reactive Protein B-Natriuretic Peptide Total Protein Albumin Procalcitonin Random Vancomycin Tacrolimus 19.1 06/09/20 06/09/20 06/09/20 16:43 20:40 22:24 WBC RBC Hgb Hct MCV MCH MCHC RDW Plt Count MPV Absolute Nucleated RBC Nucleated RBC % (auto) PTT (Heparin Protocol) D-Dimer VBG pH VBG pCO2 VBG Oxygen Liters/Min VBG pO2 VBG HCO3 VBG O2 Saturation VBG Base Excess Sodium Potassium Chloride Carbon Dioxide Anion Gap BUN Creatinine Estim Creat Clear Calc Estimated GFR POC Glucose 263 H 183 H 164 H Random Glucose Calcium Phosphorus Magnesium Ferritin Total Bilirubin AST ALT Alkaline Phosphatase C-Reactive Protein B-Natriuretic Peptide Total Protein Albumin Procalcitonin Random Vancomycin Tacrolimus 06/10/20 06/10/20 06/10/20 01:49 03:50 04:12 WBC RBC Hgb Hct MCV MCH MCHC RDW Plt Count MPV Absolute Nucleated RBC Nucleated RBC % (auto) PTT (Heparin Protocol) D-Dimer VBG pH VBG pCO2 VBG Oxygen Liters/Min VBG pO2 VBG HCO3 VBG O2 Saturation VBG Base Excess Sodium Potassium Chloride Carbon Dioxide Anion Gap BUN Creatinine Estim Creat Clear Calc Estimated GFR POC Glucose 84 51 L* 162 H Random Glucose Calcium Phosphorus Magnesium Ferritin Total Bilirubin AST ALT Alkaline Phosphatase C-Reactive Protein B-Natriuretic Peptide Total Protein Albumin Procalcitonin Random Vancomycin Tacrolimus 06/10/20 06/10/20 06/10/20 05:35 05:37 05:37 WBC 22.3 H RBC 3.23 L Hgb 9.2 L Hct 30.1 L MCV 93.2 MCH 28.5 MCHC 30.6 L RDW 13.5 Plt Count 344 MPV 9.0 L Absolute Nucleated RBC 0.020 H Nucleated RBC % (auto) 0.1 PTT (Heparin Protocol) D-Dimer VBG pH VBG pCO2 VBG Oxygen Liters/Min VBG pO2 VBG HCO3 VBG O2 Saturation VBG Base Excess Sodium 140 Potassium 4.0 Chloride 104 Carbon Dioxide 24 Anion Gap 16 BUN 81 H* Creatinine 3.23 H Estim Creat Clear Calc 21.5 Estimated GFR 19 POC Glucose 112 Random Glucose 115 D Calcium 7.2 L Phosphorus Magnesium Ferritin 1416 H Total Bilirubin 1.0 AST 54 H ALT 50 H Alkaline Phosphatase 139 H D C-Reactive Protein 25.70 H B-Natriuretic Peptide Total Protein 5.4 L Albumin 2.9 L Procalcitonin Random Vancomycin Tacrolimus 06/10/20 06/10/20 06/10/20 05:37 05:37 05:37 WBC RBC Hgb Hct MCV MCH MCHC RDW Plt Count MPV Absolute Nucleated RBC Nucleated RBC % (auto) PTT (Heparin Protocol) D-Dimer VBG pH VBG pCO2 VBG Oxygen Liters/Min VBG pO2 VBG HCO3 VBG O2 Saturation VBG Base Excess Sodium Potassium Chloride Carbon Dioxide Anion Gap BUN Creatinine Estim Creat Clear Calc Estimated GFR POC Glucose Random Glucose Calcium Phosphorus 4.0 Magnesium 2.2 Ferritin Total Bilirubin AST ALT Alkaline Phosphatase C-Reactive Protein B-Natriuretic Peptide 833 H Total Protein Albumin Procalcitonin 3.38 Random Vancomycin Tacrolimus 06/10/20 06/10/20 06/10/20 05:37 07:35 07:35 WBC RBC Hgb Hct MCV MCH MCHC RDW Plt Count MPV Absolute Nucleated RBC Nucleated RBC % (auto) PTT (Heparin Protocol) 74.9 D D-Dimer 3022 Cancelled VBG pH 7.29 L VBG pCO2 49 VBG Oxygen Liters/Min TNP VBG pO2 56 VBG HCO3 23 VBG O2 Saturation 84.7 VBG Base Excess -3.9 Sodium Potassium Chloride Carbon Dioxide Anion Gap BUN Creatinine Estim Creat Clear Calc Estimated GFR POC Glucose Random Glucose Calcium Phosphorus Magnesium Ferritin Total Bilirubin AST ALT Alkaline Phosphatase C-Reactive Protein B-Natriuretic Peptide Total Protein Albumin Procalcitonin Random Vancomycin Tacrolimus 06/10/20 06/10/20 06/10/20 08:16 08:20 11:33 WBC RBC Hgb Hct MCV MCH MCHC RDW Plt Count MPV Absolute Nucleated RBC Nucleated RBC % (auto) PTT (Heparin Protocol) D-Dimer VBG pH VBG pCO2 VBG Oxygen Liters/Min VBG pO2 VBG HCO3 VBG O2 Saturation VBG Base Excess Sodium Potassium Chloride Carbon Dioxide Anion Gap BUN Creatinine Estim Creat Clear Calc Estimated GFR POC Glucose 94 84 Random Glucose Calcium Phosphorus Magnesium Ferritin Total Bilirubin AST ALT Alkaline Phosphatase C-Reactive Protein B-Natriuretic Peptide Total Protein Albumin Procalcitonin Random Vancomycin 12.7 L Tacrolimus 06/10/20 06/10/20 12:48 16:11 WBC RBC Hgb Hct MCV MCH MCHC RDW Plt Count MPV Absolute Nucleated RBC Nucleated RBC % (auto) PTT (Heparin Protocol) D-Dimer VBG pH VBG pCO2 VBG Oxygen Liters/Min VBG pO2 VBG HCO3 VBG O2 Saturation VBG Base Excess Sodium Potassium Chloride Carbon Dioxide Anion Gap BUN Creatinine Estim Creat Clear Calc Estimated GFR POC Glucose 107 118 H Random Glucose Calcium Phosphorus Magnesium Ferritin Total Bilirubin AST ALT Alkaline Phosphatase C-Reactive Protein B-Natriuretic Peptide Total Protein Albumin Procalcitonin Random Vancomycin Tacrolimus Microbiology Microbiology Results: Microbiology 06/09/20 14:46 Urine Catheterized - Porter Catheter Urine Culture - Final No growth. 06/10/20 02:39 Sputum - Suctioned Gram Stain - Final 06/10/20 02:39 Sputum - Suctioned Sputum Culture - Preliminary No growth to date. 06/06/20 22:36 Blood - Venous Blood Culture - Preliminary Coagulase-neg Staphyloccocus 06/06/20 22:36 Blood - Venous Blood Culture - Preliminary Coag negative Staphylococcus 06/09/20 10:11 Blood - Venous Blood Culture - Preliminary 06/09/20 10:11 Blood - Venous Blood Culture - Preliminary Progress Note: A&P Time Spent With Patient Time: Total time spent is greater than 50% in coordination of care (as documented) at patient's floor/unit and/or counseling patient: Total time spent with greater than 50% in coordination of care (as documented) at patient's floor/unit and/or counseling patient:: 0 Critical Care Time Critical Care Time (minutes): 60
[2020-06-10] MEDS: propofoL 1,000 MG/100 ML VIAL 9.84 MG IVCONT (18:01)
[2020-06-10] MEDS: Heparin Sodium,Porcine/1/2NS 25,000 UNIT/250 ML IV.SOLN 8.97 UNIT IVCONT (18:27)
[2020-06-10] MEDS: Tacrolimus 1 MG CAPSULE 2 MG PO (18:47)
[2020-06-10] MEDS: fentaNYL citrate/NS 1,000 MCG/100 ML PLAST..BAG 15 MCG IVCONT (19:36)
--- NOTE | 2020-06-10 19:53 | PC.NURSE ---
ASSUMED CARE AT 07:00. PATIENT INITIALLY SEDATED ON 50 OF PROPOFOL, BUT OVERBREATHING, APPARENT INCREASED WORK OF BREATHING WITH ACCESSORY MUSCLE USE, ABDOMINAL MUSCLE INVOLVEMENT, RETRACTING; DISCUSSED WITH MD, AND NEW ORDER FOR PRN 1 MG DILAUDID, TO BE GIVEN AND THEN TO START FENTANYL GTT AT 50. THROUGH THE DAY, THE PROPOFOL WAS GRADUALLY TITRATED DOWN TO 10, AND ABOUT 15:40 THE FENTANYL WAS PUT TO 150 PER MD. THE PATIENT WAS SEEN TO HAVE LESS ACCESSORY AND ABDOMINAL MUSCLE USE. LEVOPHED ALSO SUCCESSFULLY TITRATED DOWN FROM 0.05 TO 0.01 OVER THE DAY. BP MAINTAINED WELL. PATIENT WAS NOTED OF 08:00 TO HAVE TWO DIFFERENTLY SIZED PUPILS: RIGHT PUPIL AT 4 MM, AND LEFT PUPIL AT 2 MM; PUPILS WERE BOTH REACTIVE THOUGH SLUGGISH AT THAT TIME; MD NOTIFIED--NO INTERVENTION AT THIS TIME, BUT PATIENT IS CURRENTLY CONTINUING ON HEPARIN GTT; REGARDING HEPARIN, THREE CONSECUTIVE NO CHANGES ON PTT-HD, SO NEXT PTT-HD IS SCHEDULED FOR 6 AM. PUPILS OVER COURSE OF THE DAY BECAME LESS REACTIVE, SO THAT LEFT PUPIL NOW IS APPARENTLY FIXED, AND RIGHT PUPIL STILL SLUGGISH, AND FURTHERMORE RIGHT PUPIL WAS ROUND, BUT OF ABOUT 16:00 RIGHT PUPIL IS IRREGULAR--MD NOTIFIED AND IN TO ASSESS, ALSO NO ADDITIONAL INTERVENTION AT THIS TIME, CONTINUE TO MONITOR. PATIENT DOES HAVE + COUGH AND + GAG, AND WHEN PROPOFOL IS WEANED DOWN OR ON PAUSE, HE WAKENS AND IS SEEN TO MOVE ALL EXTREMITIES. SOME ORAL SECRETIONS: THIN AND CLEAR AND THICK WHITE SECRETIONS VIA DEEP SUCTIONING. PATIENT CONTINUES TO BE INTUBATED WITH A #8 ETT, 25 JUDIE, AC SETTINGS 20; TIDAL VOLUME 450; PEEP 14; FIO2 WAS INITIALLY AT 90% AND WAS TITRATED DOWN TO 70% SUCCESSFULLY AFTER STARTING FENTNYL: SPO2 WAS 95% ON 90% AT THAT TIME, AND SPO2 WAS 90-93% ON 70%; MINUTE VOLUMES 10-11. NO INLINE SECRETIONS. LS DIM THROUGHOUT. NO BOWEL MOVEMENT, CONTINUES ON SENNA. TACROLIMUS TESTED AND IS APPARENTLY TRENDING DOWN, WAS REVIEWED BY PRODUCT DEVELOPMENT ECOLOGIST, DISCUSSED WITH MD, AND PATIENT RESTARTED ON TACROLIMUS OF 19:00 TONIGHT. PATIENT CONTINUES ON INSULIN GTT, AND TITRATED PER MD--PATIENT WAS ON 3UNITS/HOUR, DOWN TO 2 UNITS/HOUR, BACK TO 3 UNITS PER HOUR--ALSO STARTED ON NEPHRO PER MD AT 1000, AT 20 CC/HOUR, AND THIS WAS UPTITRATED TO 30 CC/HOUR PER MD, AND WELL TOLERATED, NO RESIDUALS. PATIENT SKIN IS INTACT. HAS FISTULA IN LEFT UPPER ARM, +THRILL AND + BRUIT, ASSESSED BY PRODUCT DEVELOPMENT ECOLOGIST TODAY.
[2020-06-10 20:05] LABS: Glucose, Whole Blood 149 mg/dL (60-115)
[2020-06-10] MEDS: Melatonin 3 MG TABLET 9 MG PO (20:56)
[2020-06-10] MEDS: Thiamine HCL 200 MG in 0.9 % Sodium Chloride 100 ML IV (20:56)
[2020-06-10 22:18] LABS: Glucose, Whole Blood 184 mg/dL (60-115)
[2020-06-11] VITALS (28 sets, daily range): BP systolic 98–153; BP diastolic 33–59; PULSE 64–86; RESP 18–25; TEMP 35.4–36.8; O2SAT 91–96; BMI 33.0; BMI 30.6
[2020-06-11] MEDS: Piperacillin Sodium/Tazobactam 2.25 GM in 0.9 % Sodium Chloride 50 ML IV ×2 (00:05→06:48)
[2020-06-11] MEDS: propofoL 1,000 MG/100 ML VIAL 14.76 MG IVCONT ×4 (00:06→19:47)
[2020-06-11] MEDS: Ascorbic Acid 500 MG TABLET 1000 MG PO ×2 (00:06→06:47)
[2020-06-11] MEDS: 0.9 % Sodium Chloride Flush 3 ML SYRINGE IVFLUSH ×3 (00:07→15:08)
[2020-06-11] MEDS: fentaNYL citrate/NS 1,000 MCG/100 ML PLAST..BAG 15 MCG IVCONT ×4 (02:40→21:16)
[2020-06-11 02:56] LABS: Glucose, Whole Blood 243 mg/dL (60-115)
[2020-06-11 05:48] LABS: Hematocrit 28.9 % (42-52); Hemoglobin 8.7 g/dl (14.0-18.0); Mean Corpuscular HGB Conc 30.1 g/dl (31.0-36.0); Mean Corpuscular Hemoglobin 28.5 pg (27.0-33.0); Mean Corpuscular Volume 94.8 fL (80-98); Mean Platelet Volume 9.3 fL (9.4-12.4); NRBC Pct Auto 0.2 /100WBC (0.0-0.2); Platelet Count 329 X10*3/uL (160-400); Red Blood Count 3.05 X10*6/uL (4.60-5.80); Red Cell Distribution Width 13.9 % (11.0-16.0); White Blood Count 17.2 X10*3/uL (4.8-10.8)
[2020-06-11 05:56] LABS: PTT Heparin Drip 105.3 SEC (53-77.9)
[2020-06-11 06:04] LABS: HCO3 VBG 22 mmol/L; PCO2 VBG 44 mmhg; PO2 VBG 59 mmhg; pH VBG 7.32 (7.32-7.43)
[2020-06-11 06:05] LABS: Base Excess VBG -3.5 mmol/L; Oxygen Saturation VBG 86.6 %
[2020-06-11 06:06] LABS: D Dimer 4568 NG/ML
[2020-06-11 06:17] LABS: B Type Natriuretic Peptide 396 pg/mL (<100)
[2020-06-11 06:51] LABS: Vancomycin Random 18.9 mcg/mL (15-20)
[2020-06-11 07:12] LABS: Anion Gap 18 (12-20); Blood Urea Nitrogen 86 mg/dL (9-16); C Reactive Protein 31.61 mg/dL (< or = 0.50); Calcium 6.8 mg/dL (8.4-10.2); Carbon Dioxide 21 mmol/L (22-29); Chloride 106 mmol/L (96-108); Creatinine Clr Calc Pharmacy 22.7; Estimated Glomerular Filt Rate 20; Glucose Random 279 mg/dL (60-115); Lactate Dehydrogenase 627 U/L (118-273); Magnesium 2.6 mg/dL (1.6-2.6); Phosphorus 5.2 mg/dL (2.7-4.5); Potassium 4.3 mmol/l (3.3-5.1); Sodium 141 mmol/L (135-145)
--- NOTE | 2020-06-11 07:15 | PC.NURSE ---
Shift eval 3a-7a: Patient maintained on vent with sedation - see drug titration. Patient 02sat goes to 70's when repositioning/ laying flat. Agitated w/ care, pulling up on restraints to reach for tube - restraints kept on for safety. Recovers with in 5-10 min with 100% O2 back to mid 90's. In-line secretions, scant clear/rojas. Lungs clear to dim. Good cough & gag. Patient afebrile. Producing urine. Tolerating tube feed.
[2020-06-11 07:28] LABS: Ferritin 1402 ng/mL (20-250)
[2020-06-11] MEDS: Insulin Regular/NS 100 UNIT/100 ML PLAST..BAG 6 UNIT IVCONT (08:34)
[2020-06-11 08:38] LABS: Procalcitonin 2.37 ng/mL
--- NOTE | 2020-06-11 09:16 | MHC.CM.PN ---
Pt remains in ICU and required intubation on 06/10 for worsening COVID. His condition is critical per MD and his overall recovery/condition will not be known for several days per MD. If pt does survive his illness, he will most likely require STR to address his continued respiratory needs and physical deconditioning. CM will follow for improvement of status and discuss STR plans with pt and/or HCP
[2020-06-11] MEDS: Thiamine HCL 200 MG in 0.9 % Sodium Chloride 100 ML IV (09:43)
[2020-06-11] MEDS: Sennosides 8.6 MG TABLET 17.2 MG PO (09:55)
[2020-06-11] MEDS: methylPREDNISolone Sod Succ/PF 125 MG/2 ML VIAL 60 MG IVPUSH (09:55)
[2020-06-11] MEDS: Sertraline HCL 100 MG TABLET PO (09:55)
[2020-06-11] MEDS: Chlorhexidine Gluc Oral Rinse 15 ML MOUTHWASH BUCCAL ×3 (09:55→21:03)
[2020-06-11] MEDS: Famotidine 20 MG TABLET PO ×2 (09:55→21:03)
[2020-06-11] MEDS: Tacrolimus 1 MG CAPSULE 2 MG PO (09:57)
--- NOTE | 2020-06-11 09:58 | MHC.CLN ---
PT RECEIVING TF NEPRO AT MAX GOAL RATE 30CC/HR PROVIDES 1296KCALS (1686KCALS WITH SEDATION; 23KCALS/KG), 58G PROTEIN (.8G/KG), 523CC FREE WATER FROM FORMULA. TF APPROPRIATE AND MEETS NEEDS MONITOR TOLERANCE, LYTES AND RESIDUALS
[2020-06-11 10:44] LABS: Glucose, Whole Blood 211 mg/dL (60-115)
--- NOTE | 2020-06-11 10:51 | PM.PNNEP ---
Subjective Subjective Interval history: Seen and examiend. Events noted Cont on vent/pressors UOP approx 1 liter past 24 rhs; net pos 2 Liters Physical Exam Vital Signs: Vital Signs: Last Vital Signs Temp 97.5 F 06/11/20 09:57 Pulse 72 06/11/20 09:57 Resp 18 06/11/20 09:57 BP 140/57 H 06/11/20 09:57 Pulse Ox 91 L 06/11/20 09:57 Body Mass Index 30.6 VITAL SIGNS: Reviewed. GENERAL: on vent HEAD: Normocephalic/atraumatic, EYES: LUNGS: decrease BS bilat CARDIOVASCULAR: Regular rate and rhythm without noted murmurs, ABDOMEN: Soft, non-tender, non-distended with bowel sounds. No rigidity. No guarding. No palpable masses or hernias noted MUSCULOSKELETAL: No tenderness, deformities, or effusions noted on gross inspection. EXTREMITIES: No cyanosis, clubbing or edema; LUE: AV fistula w bruit/thrill SKIN: Inspection of the skin reveals no rashes, ulcerations, jaundice, pallor, or petechiae. NEUROLOGIC: Const: General: cooperative, no acute distress and well developed Nutritional Appearance: obese Limitations: language barrier (Speaks Slovak, used technical report writer) HENMT: Other: wearing a BiPAP mask Head: Yes normal to inspection Eyes: General: appearance normal, both eyes and all related structures EOM: EOMs intact bilaterally Neck: Neck: Yes normal visual inspection, Yes full ROM and Yes supple Resp: Effort & Inspection: normal respiratory effort (on Bipap) Auscultation: bronchovesicular breath sounds Cardio: Rate: regular rate Rhythm: regular rhythm Heart sounds: normal S1 and S2 GI: Inspection: Yes obesity Palpation (GI): nontender Auscultation: normal bowel sounds Skin: General skin exam: no rashes or lesions noted Extrem: Other: fistula on left arm General: Yes normal to inspection Assessment & Plan Assessment and plan (1) COVID-19 virus infection: Status: Acute (2) Respiratory failure with hypoxia: Status: Acute (3) Hypomagnesemia: Status: Acute (4) Hypertension: Status: Chronic (5) Diabetes mellitus type 2, with complication, on skilled nursing insulin pump: Status: Chronic (6) Acute hyperkalemia: Problem details: 6.0 mmol/L Status: Acute (7) PRICILLA (acute kidney injury): Status: Acute (8) Hyponatremia: Problem details: 126 mmol/L Status: Acute (9) Hypophosphatemia: Problem details: 2.0 Status: Acute Assessment and Plan: 1. Non-Oligric PRICILLA: SCr again incr; still most c/w multifact ATN from COVID assoc cyokine injury; renal hypoperfsuion and renal thrombosis all potential contributors; acute rejection seems unlikely as does Obs; Covid direct renal injury remains a consideration but unclear if covid is directly neohrotoxic Tacro level 10/7 very elevated at 26 and may be playing signif role in PRICILLA d/t renal vasocnstriction but repat yesterday 2.5 2. CKD 3: bsl SCr 1.7 c/w DN and prior rejection of xplant kidey 3. Resp failure: c/w COVID infection/inflamation/ARDS and ques of pulm edema based on echo 4. IS: normall maintained on tacro/cellcept: will hold cellcept given potential risk of over IS; tacro level markedly elevated for unclear reasons as not on meds thatinterfer metabolism tacro last nite and this am placed on hold with this am tacro pending 5. HypoNa: resolved REC: cont to hold cellcept and tacro r/s as usu dose goven low level yesterday; goal for tacro level is 5-8 ( trough level); will check tacro tomorrow am before gviing morning does ( [place] [facility] [place] get [place] same day) Agree with trail of IV loop diuretic; no indication for HD/UF yet but he does have AVF, if and when the toime comes Will follow nicholas with ICU team Time Spent With Patient Time: Total time spent is greater than 50% in coordination of care (as documented) at patient's floor/unit and/or counseling patient:
--- NOTE | 2020-06-11 10:58 | PM.CCPN ---
Subjective Subjective Date of Service: 06/11/20 Interval History: 70-year-old gentleman with underlying history of diabetes mellitus on insulin pump, hypertension, chronic kidney disease status post kidney transplant, hypertension, hyperlipidemia, hypogonadism admitted on 06/06/2020 with acute hypoxic respiratory failure secondary to COVID-19. Hospital course complicated by progressive hypoxemia requiring transfer to intensive care unit and intubation on 06/09/2020. Physical Exam Vital Signs: Vital Signs: Last Vital Signs Temp 97.5 F 06/11/20 10:54 Pulse 72 06/11/20 10:54 Resp 18 06/11/20 10:54 BP 113/54 L 06/11/20 10:54 Pulse Ox 94 06/11/20 10:54 Body Mass Index 30.6 Const: General: no acute distress and other ( Sedated on the vent) Nutritional Appearance: Edematous Eyes: Sclerae: sclerae normal Neck: Neck: Yes no lymphadenopathy, Yes trachea midline and Yes supple Resp: Auscultation: crackles ( diffuse bilateral) Cardio: Rate: regular rate Rhythm: regular rhythm Heart sounds: no gallops, no murmurs and no rubs GI: Palpation (GI): Soft to palpation and Other GI palpation findings present ( Nontender) Auscultation: normal bowel sounds Extrem: General: No clubbing, No cyanosis and Yes edema ( 1+ bilateral) Objective Data Labs CBC & Chem 7: 06/11/20 05:33 06/11/20 05:33 Labs: Laboratory Results - last 24 hr 06/10/20 06/10/20 06/10/20 05:37 08:16 11:33 WBC RBC Hgb Hct MCV MCH MCHC RDW Plt Count MPV Absolute Nucleated RBC Nucleated RBC % (auto) PTT (Heparin Protocol) D-Dimer VBG pH VBG pCO2 VBG Oxygen Liters/Min VBG pO2 VBG HCO3 VBG O2 Saturation VBG Base Excess Sodium Potassium Chloride Carbon Dioxide Anion Gap BUN Creatinine Estim Creat Clear Calc Estimated GFR POC Glucose 84 Random Glucose Calcium Phosphorus Magnesium Ferritin Lactate Dehydrogenase C-Reactive Protein B-Natriuretic Peptide Procalcitonin Random Vancomycin 12.7 L Tacrolimus 2.6 (L) 06/10/20 06/10/20 06/10/20 12:48 16:11 19:48 WBC RBC Hgb Hct MCV MCH MCHC RDW Plt Count MPV Absolute Nucleated RBC Nucleated RBC % (auto) PTT (Heparin Protocol) D-Dimer VBG pH VBG pCO2 VBG Oxygen Liters/Min VBG pO2 VBG HCO3 VBG O2 Saturation VBG Base Excess Sodium Potassium Chloride Carbon Dioxide Anion Gap BUN Creatinine Estim Creat Clear Calc Estimated GFR POC Glucose 107 118 H 149 H Random Glucose Calcium Phosphorus Magnesium Ferritin Lactate Dehydrogenase C-Reactive Protein B-Natriuretic Peptide Procalcitonin Random Vancomycin Tacrolimus 06/10/20 06/11/20 06/11/20 22:02 02:46 05:33 WBC 17.2 H RBC 3.05 L Hgb 8.7 L Hct 28.9 L MCV 94.8 MCH 28.5 MCHC 30.1 L RDW 13.9 Plt Count 329 MPV 9.3 L Absolute Nucleated RBC 0.040 H Nucleated RBC % (auto) 0.2 PTT (Heparin Protocol) D-Dimer VBG pH VBG pCO2 VBG Oxygen Liters/Min VBG pO2 VBG HCO3 VBG O2 Saturation VBG Base Excess Sodium Potassium Chloride Carbon Dioxide Anion Gap BUN Creatinine Estim Creat Clear Calc Estimated GFR POC Glucose 184 H 243 H Random Glucose Calcium Phosphorus Magnesium Ferritin Lactate Dehydrogenase C-Reactive Protein B-Natriuretic Peptide Procalcitonin Random Vancomycin Tacrolimus 06/11/20 06/11/20 06/11/20 05:33 05:33 05:33 WBC RBC Hgb Hct MCV MCH MCHC RDW Plt Count MPV Absolute Nucleated RBC Nucleated RBC % (auto) PTT (Heparin Protocol) D-Dimer 4568 VBG pH VBG pCO2 VBG Oxygen Liters/Min VBG pO2 VBG HCO3 VBG O2 Saturation VBG Base Excess Sodium 141 Potassium 4.3 Chloride 106 Carbon Dioxide 21 L Anion Gap 18 BUN 86 H* Creatinine 3.09 H Estim Creat Clear Calc 22.7 Estimated GFR 20 POC Glucose Random Glucose 279 H D Calcium 6.8 L Phosphorus 5.2 H Magnesium 2.6 Ferritin 1402 H Lactate Dehydrogenase 627 H C-Reactive Protein 31.61 H B-Natriuretic Peptide 396 H Procalcitonin Random Vancomycin Tacrolimus 06/11/20 06/11/20 06/11/20 05:33 05:33 05:33 WBC RBC Hgb Hct MCV MCH MCHC RDW Plt Count MPV Absolute Nucleated RBC Nucleated RBC % (auto) PTT (Heparin Protocol) 105.3 H D D-Dimer VBG pH 7.32 VBG pCO2 44 VBG Oxygen Liters/Min TNP VBG pO2 59 VBG HCO3 22 VBG O2 Saturation 86.6 VBG Base Excess -3.5 Sodium Potassium Chloride Carbon Dioxide Anion Gap BUN Creatinine Estim Creat Clear Calc Estimated GFR POC Glucose Random Glucose Calcium Phosphorus Magnesium Ferritin Lactate Dehydrogenase C-Reactive Protein B-Natriuretic Peptide Procalcitonin 2.37 Random Vancomycin Tacrolimus 06/11/20 06/11/20 05:33 10:30 WBC RBC Hgb Hct MCV MCH MCHC RDW Plt Count MPV Absolute Nucleated RBC Nucleated RBC % (auto) PTT (Heparin Protocol) D-Dimer VBG pH VBG pCO2 VBG Oxygen Liters/Min VBG pO2 VBG HCO3 VBG O2 Saturation VBG Base Excess Sodium Potassium Chloride Carbon Dioxide Anion Gap BUN Creatinine Estim Creat Clear Calc Estimated GFR POC Glucose 211 H Random Glucose Calcium Phosphorus Magnesium Ferritin Lactate Dehydrogenase C-Reactive Protein B-Natriuretic Peptide Procalcitonin Random Vancomycin 18.9 Tacrolimus Microbiology Microbiology Results: Microbiology 06/10/20 02:39 Sputum - Suctioned Gram Stain - Final 06/10/20 02:39 Sputum - Suctioned Sputum Culture - Preliminary Haemophilus species 06/09/20 10:11 Blood - Venous Blood Culture - Preliminary Coagulase-neg Staphyloccocus 06/09/20 10:11 Blood - Venous Blood Culture - Preliminary Coagulase-neg Staphyloccocus 06/06/20 22:36 Blood - Venous Blood Culture - Preliminary Coagulase-neg Staphyloccocus 06/06/20 22:36 Blood - Venous Blood Culture - Preliminary Coag negative Staphylococcus 06/09/20 14:46 Urine Catheterized - Porter Catheter Urine Culture - Final No growth. Progress Note: A&P Assessment and plan (1) Respiratory failure with hypoxia: Status: Acute Assessment and Plan: Assessment: 70-year-old gentleman with underlying diabetes mellitus and chronic kidney disease status post kidney transplant admitted with acute hypoxic respiratory failure secondary to COVID-19 ARDS eventually requiring intubation and ventilatory support Plan: Neuro: No acute issues. Cardiac: No acute issues. Pulmonary: COVID-19 related ARDS requiring ventilatory support. Continue to titrate off ventilatory support as tolerated. Continue with IV glucocorticoids. Renal: Chronic kidney disease status post kidney transplant. Nephrology service care appreciated. Volume overload, will give empiric Bumex. Continue to monitor tacrolimus level. Endo: No acute issues. Underlying diabetes mellitus. GI: No acute issues. ID: Subacute COVID-19. Heme/Onc: No acute issues. Psych: No acute issues. Miscellaneous: No acute issues. Prophylaxis: Lovenox, famotidine Diet: tube feeds Critical care time spent: 90 minutes (2) COVID-19 virus infection: Status: Acute (3) PRICILLA (acute kidney injury): Status: Acute (4) Diabetes mellitus type 2, with complication, on correction insulin pump: Status: Chronic Time Spent With Patient Time: Total time spent is greater than 50% in coordination of care (as documented) at patient's floor/unit and/or counseling patient: Total time spent with greater than 50% in coordination of care (as documented) at patient's floor/unit and/or counseling patient:: 0 Critical Care Time Critical Care Time (minutes): 90
[2020-06-11] MEDS: Insulin Glargine,Hum.rec.anlog 100 UNIT/ML 10 ML VIAL 40 UNIT SUBCUT (11:40)
[2020-06-11] MEDS: Bumetanide 1 MG/4 ML VIAL 2 MG IVPUSH (11:40)
[2020-06-11] MEDS: Enoxaparin Sodium 40 MG/0.4 ML SYRINGE SUBCUT (11:41)
[2020-06-11] MEDS: Insulin Lispro 100 UNIT/ML 3 ML VIAL SUBCUT ×3 (11:50→21:03)
[2020-06-11 12:05] LABS: Glucose, Whole Blood 236 mg/dL (60-115)
[2020-06-11 16:47] LABS: Glucose, Whole Blood 279 mg/dL (60-115)
[2020-06-11] MEDS: fentaNYL citrate/PF 100 MCG/2 ML VIAL 50 MCG IVPUSH (20:21)
[2020-06-11] MEDS: Tacrolimus 1 MG CAPSULE PO (21:02)
[2020-06-11 21:23] LABS: Glucose, Whole Blood 294 mg/dL (60-115)
[2020-06-12] VITALS (30 sets, daily range): BP systolic 116–156; BP diastolic 39–74; PULSE 69–98; RESP 15–26; TEMP 33.8–37.2; O2SAT 88–94; BMI 32.6
[2020-06-12] MEDS: propofoL 1,000 MG/100 ML VIAL 24.6 MG IVCONT ×7 (00:16→22:59)
[2020-06-12] MEDS: fentaNYL citrate/NS 1,000 MCG/100 ML PLAST..BAG 15 MCG IVCONT (02:57)
[2020-06-12 05:41] LABS: Basophils Percent Auto 0.1 % (0-2); Hematocrit 28.6 % (42-52); Hemoglobin 8.7 g/dl (14.0-18.0); Imm Gran Abs Auto 1.22 X10*3/uL (0.00-0.03); Imm Gran Pct Auto 4.9 % (0.0-0.4); Lymphocytes Absolute Auto 0.5 X10*3/uL (1.2-4.9); Lymphocytes Percent Auto 1.8 % (20-40); MANUAL DIFF FLAG SCAN; Mean Corpuscular HGB Conc 30.4 g/dl (31.0-36.0); Mean Corpuscular Volume 95.3 fL (80-98); Monocytes Absolute Auto 1.1 X10*3/uL (0.1-1.2); Monocytes Percent Auto 4.3 % (2-11); NRBC Pct Auto 0.1 /100WBC (0.0-0.2); Neutrophils Absolute Auto 22.3 X10*3/uL (2.0-8.3); Neutrophils Percent Auto 88.9 % (45-73); Platelet Count 344 X10*3/uL (160-400); Red Cell Distribution Width 14.2 % (11.0-16.0); SCAN SMEAR FLAG 1; White Blood Count 25.1 X10*3/uL (4.8-10.8)
[2020-06-12 05:56] LABS: Base Excess VBG -5.8 mmol/L; HCO3 VBG 21 mmol/L; Oxygen Saturation VBG 75.4 %; PCO2 VBG 48 mmhg; PO2 VBG 46 mmhg; pH VBG 7.26 (7.32-7.43)
[2020-06-12 06:23] LABS: SLIDE REVIEW VERIFIED
[2020-06-12 06:27] LABS: Alanine Aminotransferase 38 U/L (0-40); Albumin Level 2.6 g/dL (3.5-5.0); Alkaline Phosphatase 183 U/L (39-117); Anion Gap 19 (12-20); Aspartate Amino Transferase 46 U/L (5-37); Bilirubin Total 0.5 mg/dL (0.0-1.0); Blood Urea Nitrogen 104 mg/dL (9-16); Carbon Dioxide 23 mmol/L (22-29); Chloride 104 mmol/L (96-108); Creatinine Clr Calc Pharmacy 22.6; Estimated Glomerular Filt Rate 20; Glucose Random 390 mg/dL (60-115); Magnesium 2.9 mg/dL (1.6-2.6); Potassium 4.9 mmol/l (3.3-5.1); Sodium 141 mmol/L (135-145); Total Protein 5.9 g/dL (6.5-8.0)
[2020-06-12] MEDS: Insulin Lispro 100 UNIT/ML 3 ML VIAL SUBCUT ×4 (08:04→20:57)
[2020-06-12] MEDS: 0.9 % Sodium Chloride Flush 3 ML SYRINGE IVFLUSH ×2 (08:04→16:40)
[2020-06-12] MEDS: Chlorhexidine Gluc Oral Rinse 15 ML MOUTHWASH BUCCAL ×3 (08:04→20:57)
[2020-06-12] MEDS: Albumin Human 25 % 100 ML IV ×3 (08:05→18:41)
[2020-06-12] MEDS: Famotidine 20 MG TABLET PO (08:06)
[2020-06-12] MEDS: methylPREDNISolone Sod Succ/PF 125 MG/2 ML VIAL 60 MG IVPUSH (08:06)
[2020-06-12] MEDS: Tacrolimus 1 MG CAPSULE 2 MG PO (09:04)
[2020-06-12] MEDS: Insulin Glargine,Hum.rec.anlog 100 UNIT/ML 10 ML VIAL 60 UNIT SUBCUT (09:05)
--- NOTE | 2020-06-12 09:45 | MHC.CLN ---
F/U SEDATION INCREASED RECOMMEND DECREASING TF NEPRO AT MAX GOAL RATE 25CC/HR PROVIDES 1080KCALS (1729KCALS WITH SEDATION; 24KCALS/KG), 48.6G PROTEIN (.7G/KG), 436CC FREE WATER FROM FORMULA MONITOR TOLERANCE, LYTES AND RESIDUALS
[2020-06-12] MEDS: fentaNYL citrate/NS 1,000 MCG/100 ML PLAST..BAG 20 MCG IVCONT (09:50)
[2020-06-12 11:33] LABS: Glucose, Whole Blood 292 mg/dL (60-115)
[2020-06-12] MEDS: Enoxaparin Sodium 30 MG/0.3 ML SYRINGE SUBCUT (11:55)
[2020-06-12 13:44] LABS: Vancomycin Random 13.4 mcg/mL (15-20)
--- NOTE | 2020-06-12 13:49 | MHC.CM.PN ---
Pt remains in ICU on ventilatory support with COVID-19. Call placed to outside machinist apprentice services to assist with a status update call to pt's next of kin: awaiting assistance at this time. CM continues to follow for finalization of d/c plans which will be based on pt's response to vent weaning
[2020-06-12] MEDS: fentaNYL citrate/NS 1,000 MCG/100 ML PLAST..BAG 27.5 MCG IVCONT ×3 (14:34→23:00)
[2020-06-12 14:44] LABS: Tacrolimus Prograf 9.3
--- NOTE | 2020-06-12 15:17 | P.PNCC_ITS ---
Subjective Subjective Date of Service: 06/12/20 Interval History: 70-year-old gentleman with underlying history of diabetes mellitus on insulin pump, hypertension, chronic kidney disease status post kidney transplant, hypertension, hyperlipidemia, hypogonadism admitted on 06/06/2020 with acute hypoxic respiratory failure secondary to COVID-19. Hospital course complicated by progressive hypoxemia requiring transfer to intensive care unit and intubation on 06/09/2020. Overnight with progressive hypoxemia, now essentially on maximumon ventilatory support. Physical Exam Vital Signs: Vital Signs: Last Vital Signs Temp 98.8 F 06/12/20 15:00 Pulse 85 06/12/20 15:00 Resp 20 06/12/20 15:00 BP 137/62 06/12/20 15:00 Pulse Ox 88 L 06/12/20 15:00 Body Mass Index 32.6 Const: General: no acute distress and other ( sedated on the vent) Eyes: Sclerae: sclerae normal Neck: Neck: Yes no lymphadenopathy, Yes trachea midline and Yes supple Resp: Auscultation: crackles bilateral and diffuse Cardio: Rate: regular rate Rhythm: regular rhythm Heart sounds: no gallops, no murmurs and no rubs GI: Palpation (GI): Soft to palpation and Other GI palpation findings present ( Nontender) Auscultation: normal bowel sounds Extrem: General: No clubbing, No cyanosis and Yes edema ( 2 +bilateral) Objective Data Labs CBC & Chem 7: 06/12/20 05:25 06/12/20 05:25 Labs: Laboratory Results - last 24 hr 06/11/20 06/11/20 06/12/20 16:27 20:59 05:25 WBC RBC Hgb Hct MCV MCH MCHC RDW Plt Count MPV Immature Gran % (Auto) Neut % (Auto) Lymph % (Auto) Dougherty % (Auto) Eos % (Auto) Baso % (Auto) Lymph # (Auto) Dougherty # (Auto) Eos # (Auto) Baso # (Auto) Abs Immat Gran (auto) Absolute Neuts (auto) Absolute Nucleated RBC Nucleated RBC % (auto) Smear Tech's Comments VBG pH VBG pCO2 VBG Oxygen Liters/Min VBG pO2 VBG HCO3 VBG O2 Saturation VBG Base Excess Sodium Potassium Chloride Carbon Dioxide Anion Gap BUN Creatinine Estim Creat Clear Calc Estimated GFR POC Glucose 279 H 294 H Random Glucose Calcium Phosphorus Magnesium Total Bilirubin AST ALT Alkaline Phosphatase Total Protein Albumin Random Vancomycin Tacrolimus 9.3 06/12/20 06/12/20 06/12/20 05:25 05:25 05:25 WBC 25.1 H RBC 3.00 L Hgb 8.7 L Hct 28.6 L MCV 95.3 MCH 29.0 MCHC 30.4 L RDW 14.2 Plt Count 344 MPV 9.0 L Immature Gran % (Auto) 4.9 H Neut % (Auto) 88.9 H Lymph % (Auto) 1.8 L Dougherty % (Auto) 4.3 Eos % (Auto) 0.0 Baso % (Auto) 0.1 Lymph # (Auto) 0.5 L Dougherty # (Auto) 1.1 Eos # (Auto) 0.0 Baso # (Auto) 0.0 Abs Immat Gran (auto) 1.22 H Absolute Neuts (auto) 22.3 H Absolute Nucleated RBC 0.030 H Nucleated RBC % (auto) 0.1 Smear Tech's Comments VERIFIED VBG pH 7.26 L VBG pCO2 48 VBG Oxygen Liters/Min TNP VBG pO2 46 VBG HCO3 21 VBG O2 Saturation 75.4 VBG Base Excess -5.8 Sodium 141 Potassium 4.9 Chloride 104 Carbon Dioxide 23 Anion Gap 19 BUN 104 H* D Creatinine 3.10 H Estim Creat Clear Calc 22.6 Estimated GFR 20 POC Glucose Random Glucose 390 H* Calcium 7.0 L Phosphorus 6.0 H Magnesium 2.9 H Total Bilirubin 0.5 AST 46 H ALT 38 Alkaline Phosphatase 183 H D Total Protein 5.9 L Albumin 2.6 L Random Vancomycin Tacrolimus 06/12/20 06/12/20 11:20 13:00 WBC RBC Hgb Hct MCV MCH MCHC RDW Plt Count MPV Immature Gran % (Auto) Neut % (Auto) Lymph % (Auto) Dougherty % (Auto) Eos % (Auto) Baso % (Auto) Lymph # (Auto) Dougherty # (Auto) Eos # (Auto) Baso # (Auto) Abs Immat Gran (auto) Absolute Neuts (auto) Absolute Nucleated RBC Nucleated RBC % (auto) Smear Tech's Comments VBG pH VBG pCO2 VBG Oxygen Liters/Min VBG pO2 VBG HCO3 VBG O2 Saturation VBG Base Excess Sodium Potassium Chloride Carbon Dioxide Anion Gap BUN Creatinine Estim Creat Clear Calc Estimated GFR POC Glucose 292 H Random Glucose Calcium Phosphorus Magnesium Total Bilirubin AST ALT Alkaline Phosphatase Total Protein Albumin Random Vancomycin 13.4 L Tacrolimus Microbiology Microbiology Results: Microbiology 06/06/20 22:36 Blood - Venous Blood Culture - Final Staphylococcus auricularis 06/10/20 02:39 Sputum - Suctioned Gram Stain - Final 06/10/20 02:39 Sputum - Suctioned Sputum Culture - Final Haemophilus influenzae 06/06/20 22:36 Blood - Venous Blood Culture - Final Staphylococcus capitis 06/09/20 10:11 Blood - Venous Blood Culture - Preliminary Staphylococcus epidermidis 06/09/20 10:11 Blood - Venous Blood Culture - Final Staphylococcus epidermidis 06/09/20 14:46 Urine Catheterized - Porter Catheter Urine Culture - Final No growth. Progress Note: A&P Assessment and plan (1) COVID-19 virus infection: Status: Acute Assessment and Plan: Assessment: 70-year-old gentleman with underlying diabetes mellitus and chronic kidney disease status post kidney transplant admitted with acute hypoxic respiratory failure secondary to COVID-19 ARDS eventually requiring intubation and ventilatory support Plan: Neuro: No acute issues. Cardiac: No acute issues. Pulmonary: COVID-19 related ARDS requiring ventilatory support. Now on maximal ventilatory support. Continue with IV glucocorticoids. Renal: Chronic kidney disease status post kidney transplant. Nephrology service care appreciated. Volume overloaded, Will continue Bumex with metolazone. Continue to monitor tacrolimus level. Endo: No acute issues. Underlying diabetes mellitus. GI: No acute issues. ID: Subacute COVID-19. Heme/Onc: No acute issues. Psych: No acute issues. Miscellaneous: No acute issues. Prophylaxis: Lovenox, famotidine Diet: tube feeds Critical care time spent: 60 minutes (2) Respiratory failure with hypoxia: Status: Acute Time Spent With Patient Time: Total time spent is greater than 50% in coordination of care (as documented) at patient's floor/unit and/or counseling patient: Total time spent with greater than 50% in coordination of care (as documented) at patient's floor/unit and/or counseling patient:: 0 Critical Care Time Critical Care Time (minutes): 60
[2020-06-12 16:11] LABS: Glucose, Whole Blood 280 mg/dL (60-115)
[2020-06-12] MEDS: Bumetanide 1 MG/4 ML VIAL 2 MG IVPUSH (16:40)
[2020-06-12] MEDS: Chlorothiazide Sodium 500 MG VIAL IVPUSH (16:41)
[2020-06-12] MEDS: vancomycin HCL 1,000 MG in 0.9 % Sodium Chloride 250 ML 180 MG IV (16:41)
--- NOTE | 2020-06-12 19:26 | PC.NURSE ---
pt remaining on ventilator today- sedate on propofol and fentanyl gtts- tolerating tf nepro well; random vanco drawn today- 1 gm vanco given this afternoon- pt tolerating ac vent settings with peep 14, fio2 100% on higher rates of propofol and fentanyl gtt; albumin doses given, pt given 2 mg iv bumex and 500 mg metolazone per md order- 100 ml urine output from this- dr jonas updated; no further orders; turning pt q2h- when emerging from sedation- pt reaches for tube- restraints bilat wrist resume
[2020-06-12 20:29] LABS: Glucose, Whole Blood 275 mg/dL (60-115)
[2020-06-12] MEDS: Tacrolimus 1 MG CAPSULE PO (20:57)
[2020-06-13] VITALS (31 sets, daily range): BP systolic 93–144; BP diastolic 30–86; PULSE 79–112; RESP 17–32; TEMP 36.6–37.6; O2SAT 85–97; BMI 32.1
[2020-06-13] MEDS: Albumin Human 25 % 100 ML IV (02:12)
[2020-06-13] MEDS: propofoL 1,000 MG/100 ML VIAL 24.6 MG IVCONT ×6 (02:12→21:03)
[2020-06-13] MEDS: 0.9 % Sodium Chloride Flush 3 ML SYRINGE IVFLUSH ×3 (02:13→15:27)
[2020-06-13] MEDS: fentaNYL citrate/NS 1,000 MCG/100 ML PLAST..BAG 30 MCG IVCONT ×4 (02:58→13:30)
[2020-06-13 06:03] LABS: Hematocrit 28.3 % (42-52); Hemoglobin 8.1 g/dl (14.0-18.0); Mean Corpuscular HGB Conc 28.6 g/dl (31.0-36.0); Mean Corpuscular Hemoglobin 28.3 pg (27.0-33.0); Mean Platelet Volume 9.4 fL (9.4-12.4); NRBC Pct Auto 0.3 /100WBC (0.0-0.2); Platelet Count 214 X10*3/uL (160-400); Red Blood Count 2.86 X10*6/uL (4.60-5.80); Red Cell Distribution Width 14.3 % (11.0-16.0); White Blood Count 15.4 X10*3/uL (4.8-10.8)
[2020-06-13 06:29] LABS: HCO3 VBG 24 mmol/L; PCO2 VBG 80 mmhg; PO2 VBG 60 mmhg
[2020-06-13 06:30] LABS: Oxygen Saturation VBG 82.1 %
[2020-06-13 06:31] LABS: pH VBG 7.09 (7.32-7.43)
[2020-06-13 06:35] LABS: Band Neutrophils Percent 2 % (3-5); Metamyelocytes Absolute 0.3 X10*3/uL; Metamyelocytes Percent 2 %; Monocytes Absolute Manual 0.3 X10*3/uL (0.0-1.2); Monocytes Percent Manual 2 % (2-11); Neutrophils Absolute Manual 14.8 X10*3/uL (2.2-7.9); Neutrophils Percent Manual 94 % (45-73); Nucleated Red Blood Cells 2 /100WBC (0-0)
[2020-06-13 06:37] LABS: Hypochromasia 1+; Macrocytosis 1+; Ovalocytes 1+; Platelet Estimate NORMAL (NORMAL); Platelet Morphology Comment NORMAL; RBC Morphology NOTED; Tear Drop Cells 1+
[2020-06-13 06:38] LABS: Basophilic Stippling 1+; Polychromasia 1+; Toxic Vacuolation PRESENT
[2020-06-13 06:42] LABS: Alanine Aminotransferase 24 U/L (0-40); Albumin Level 3.5 g/dL (3.5-5.0); Alkaline Phosphatase 166 U/L (39-117); Anion Gap 19 (12-20); Aspartate Amino Transferase 41 U/L (5-37); Blood Urea Nitrogen 107 mg/dL (9-16); Calcium 6.9 mg/dL (8.4-10.2); Carbon Dioxide 23 mmol/L (22-29); Chloride 104 mmol/L (96-108); Estimated Glomerular Filt Rate 17; Glucose Random 226 mg/dL (60-115); Phosphorus 7.5 mg/dL (2.7-4.5); Potassium 5.2 mmol/l (3.3-5.1); Sodium 141 mmol/L (135-145); Total Protein 6.6 g/dL (6.5-8.0)
--- NOTE | 2020-06-13 07:17 | PC.NURSE ---
SE 11-7: ASSUMED CARE OF PT AT 2300. PT ON AC VENT SETTINGS. HAD ISSUES WITH DESATTING DESPITE SUCTIONING AND REPOSITIONING. FAVORS HAVING LEFT LUNG UP. VENT CHANGES MADE. PEEP INCREASED TO 18 FROM 14 AND O2 SATS FINALLY IMPROVED ABOVE 90%. GOOD SEDATION EFFECT ON FENTANYL AND PROPOFOL. VITAL SIGNS STABLE. AFEBRILE. BP STABLE ON LEVOPHED DRIP. U/O 25-45 ML/HR. TOLERATING TUBE FEEDS ORDERED.
[2020-06-13 07:23] LABS: Glucose, Whole Blood 214 mg/dL (60-115)
[2020-06-13] MEDS: Insulin Lispro 100 UNIT/ML 3 ML VIAL SUBCUT ×4 (07:58→21:30)
[2020-06-13 08:12] LABS: Base Excess VBG -5.8 mmol/L; HCO3 VBG 23 mmol/L; Oxygen Saturation VBG 84.7 %; PCO2 VBG 65 mmhg; PO2 VBG 59 mmhg
[2020-06-13 08:36] LABS: pH VBG 7.16 (7.32-7.43)
--- NOTE | 2020-06-13 09:34 | P.CDIC_ITS ---
[facility] Concurrent Query Service Date: 06/13/20 Documentation Clarification: Please clarify if you are treating a proba ble/suspected/likely or confirmed: Treat or rule out: Sepsis due to Covid-19/pneumonia/ARDS with acute respiratory failure POA Severe sepsis due to Covid-19/pneumonia/ARDS with acute respiratory failure Covid-19/pneumonia/ARDS with acute respiratory failure Please specify if known Provider Response: Other ( COVID-19 related ARDS and viral sepsis) Other Diagnosis: COVID-19 related ARDS and viral sepsis PLEASE DO NOT DELETE/MODIFY EXISTING CONTENT Additional information is needed in order to code to the highest accuracy and appropriate Severity of Illness (SOI). Please clarify the information noted below in your progress notes and discharge summary. Risk Factors/Clinical Indicators/Treatments ED: Covid-19 viral infection with acute respiratory failure hypoxic. ICU: 06/09 - No septic shock or new septic breathing although wbc is up, new low grade temp, increasing in delirium all of which could be due to sepsis or like Covid. Temp 97.4 102 RR 18 24 Intubated and on vent support. ICU: 06/10 - no clear evidence of bacterial Sepsis. ICU: 06/11 - Covid-19 ARDS CDS: Margot Acevedo CCS, [facility] Contact Number: [phone] Please Review the information above and exercise your independent professional judgment in responding to the query. If you concur, pleas document in the PROGRESS NOTES and DISCHARGE SUMMARY. If you do not agree with the query, please document in the query above. THIS QUERY IS PART OF THE PERMANENT MEDICAL RECORD
[2020-06-13] MEDS: Insulin Glargine,Hum.rec.anlog 100 UNIT/ML 10 ML VIAL 70 UNIT SUBCUT (09:58)
[2020-06-13] MEDS: Enoxaparin Sodium 30 MG/0.3 ML SYRINGE SUBCUT (10:06)
[2020-06-13] MEDS: Famotidine 20 MG TABLET 10 MG PO (10:07)
[2020-06-13] MEDS: Chlorhexidine Gluc Oral Rinse 15 ML MOUTHWASH BUCCAL ×3 (10:07→21:02)
[2020-06-13] MEDS: Tacrolimus 1 MG CAPSULE PO ×2 (10:07→21:03)
[2020-06-13] MEDS: methylPREDNISolone Sod Succ/PF 125 MG/2 ML VIAL 60 MG IVPUSH (10:08)
--- NOTE | 2020-06-13 11:28 | MHC.CLN ---
F/U PT RECEIVING TF NEPRO AT MAX GOAL RATE 30CC/HR PROVIDES 1296KCALS (1947KCALS WITH SEDATION; 27KCALS/KG), 58G PROTEIN (.8G/KG), 523CC FREE WATER FROM FORMULA. TF APPROPRIATE AND MEETS NEEDS PT WITH NEW STAGE 2 BUTTOCK WILL ADD GUZMAN VIA TF TO PROMOTE WOUND HEALING MONITOR TOLERANCE, LYTES AND RESIDUALS
[2020-06-13 11:39] LABS: Glucose, Whole Blood 194 mg/dL (60-115)
--- NOTE | 2020-06-13 12:06 | PM.CCPN ---
Subjective Subjective Date of Service: 06/13/20 Interval History: Interval History: 70-year-old gentleman with underlying history of diabetes mellitus on insulin pump, hypertension, chronic kidney disease status post kidney transplant, hypertension, hyperlipidemia, hypogonadism admitted on 06/06/2020 with acute hypoxic respiratory failure secondary to COVID-19. Hospital course complicated by progressive hypoxemia requiring transfer to intensive care unit and intubation on 06/09/2020. Overnight with increasing plateau pressures secondary to worsening pulmonary edema. Physical Exam Vital Signs: Vital Signs: Last Vital Signs Temp 98.8 F 06/13/20 10:00 Pulse 92 06/13/20 10:49 Resp 30 H 06/13/20 10:49 BP 93/46 L 06/13/20 10:49 Pulse Ox 92 06/13/20 10:49 Body Mass Index 32.1 Const: General: no acute distress and other ( anasarca, sedated on the vent) Eyes: Sclerae: sclerae normal EOM: EOMs intact bilaterally Neck: Neck: Yes no lymphadenopathy, Yes trachea midline and Yes supple Resp: Auscultation: crackles bilateral and diffuse Cardio: Rate: regular rate Rhythm: regular rhythm Heart sounds: no gallops, no murmurs and no rubs GI: Palpation (GI): Soft to palpation and Other GI palpation findings present ( Nontender) Auscultation: normal bowel sounds Extrem: General: No clubbing, No cyanosis and Yes edema ( 2+ bilateral) Objective Data Labs CBC & Chem 7: 06/13/20 05:41 06/13/20 05:41 Labs: Laboratory Results - last 24 hr 06/12/20 06/12/20 06/12/20 05:25 13:00 16:04 WBC RBC Hgb Hct MCV MCH MCHC RDW Plt Count MPV Immature Gran % (Auto) Neut % (Auto) Lymph % (Auto) [place] % (Auto) Eos % (Auto) Baso % (Auto) Lymph # (Auto) [place] # (Auto) Eos # (Auto) Baso # (Auto) Abs Immat Gran (auto) Absolute Neuts (auto) Absolute Nucleated RBC Nucleated RBC % (auto) Neutrophils % (Manual) Band Neutrophils % Monocytes % (Manual) Metamyelocytes % Abs Neuts (Manual) Monocytes # (Manual) Metamyelocytes # Nucleated RBCs Toxic Vacuolation Platelet Estimate Plt Morphology Comment RBC Morphology Polychromasia Hypochromasia Basophilic Stippling Macrocytosis Tear Drop Cells Ovalocytes VBG pH VBG pCO2 VBG Oxygen Liters/Min VBG pO2 VBG HCO3 VBG O2 Saturation VBG Base Excess Sodium Potassium Chloride Carbon Dioxide Anion Gap BUN Creatinine Estim Creat Clear Calc Estimated GFR POC Glucose 280 H Random Glucose Calcium Phosphorus Total Bilirubin AST ALT Alkaline Phosphatase Total Protein Albumin Random Vancomycin 13.4 L Tacrolimus 9.3 06/12/20 06/13/20 06/13/20 20:24 05:41 05:41 WBC 15.4 H RBC 2.86 L Hgb 8.1 L Hct 28.3 L MCV 99.0 H MCH 28.3 MCHC 28.6 L RDW 14.3 Plt Count 214 D MPV 9.4 Immature Gran % (Auto) Cancelled Neut % (Auto) Cancelled Lymph % (Auto) Cancelled [place] % (Auto) Cancelled Eos % (Auto) Cancelled Baso % (Auto) Cancelled Lymph # (Auto) Cancelled [place] # (Auto) Cancelled Eos # (Auto) Cancelled Baso # (Auto) Cancelled Abs Immat Gran (auto) Cancelled Absolute Neuts (auto) Cancelled Absolute Nucleated RBC 0.050 H Nucleated RBC % (auto) 0.3 H Neutrophils % (Manual) 94 H Band Neutrophils % 2 L Monocytes % (Manual) 2 Metamyelocytes % 2 Abs Neuts (Manual) 14.8 H Monocytes # (Manual) 0.3 Metamyelocytes # 0.3 Nucleated RBCs 2 H Toxic Vacuolation PRESENT Platelet Estimate NORMAL Plt Morphology Comment NORMAL RBC Morphology NOTED Polychromasia 1+ Hypochromasia 1+ Basophilic Stippling 1+ Macrocytosis 1+ Tear Drop Cells 1+ Ovalocytes 1+ VBG pH VBG pCO2 VBG Oxygen Liters/Min VBG pO2 VBG HCO3 VBG O2 Saturation VBG Base Excess Sodium 141 Potassium 5.2 H Chloride 104 Carbon Dioxide 23 Anion Gap 19 BUN 107 H* Creatinine 3.58 H Estim Creat Clear Calc 20.0 Estimated GFR 17 POC Glucose 275 H Random Glucose 226 H D Calcium 6.9 L Phosphorus 7.5 H Total Bilirubin 1.0 AST 41 H ALT 24 Alkaline Phosphatase 166 H Total Protein 6.6 Albumin 3.5 D Random Vancomycin Tacrolimus 06/13/20 06/13/20 06/13/20 05:41 07:17 08:00 WBC RBC Hgb Hct MCV MCH MCHC RDW Plt Count MPV Immature Gran % (Auto) Neut % (Auto) Lymph % (Auto) [place] % (Auto) Eos % (Auto) Baso % (Auto) Lymph # (Auto) [place] # (Auto) Eos # (Auto) Baso # (Auto) Abs Immat Gran (auto) Absolute Neuts (auto) Absolute Nucleated RBC Nucleated RBC % (auto) Neutrophils % (Manual) Band Neutrophils % Monocytes % (Manual) Metamyelocytes % Abs Neuts (Manual) Monocytes # (Manual) Metamyelocytes # Nucleated RBCs Toxic Vacuolation Platelet Estimate Plt Morphology Comment RBC Morphology Polychromasia Hypochromasia Basophilic Stippling Macrocytosis Tear Drop Cells Ovalocytes VBG pH 7.09 L* 7.16 L* VBG pCO2 80 65 VBG Oxygen Liters/Min Not Reportable TNP VBG pO2 60 59 VBG HCO3 24 23 VBG O2 Saturation 82.1 84.7 VBG Base Excess -6.0 -5.8 Sodium Potassium Chloride Carbon Dioxide Anion Gap BUN Creatinine Estim Creat Clear Calc Estimated GFR POC Glucose 214 H Random Glucose Calcium Phosphorus Total Bilirubin AST ALT Alkaline Phosphatase Total Protein Albumin Random Vancomycin Tacrolimus 06/13/20 11:34 WBC RBC Hgb Hct MCV MCH MCHC RDW Plt Count MPV Immature Gran % (Auto) Neut % (Auto) Lymph % (Auto) [place] % (Auto) Eos % (Auto) Baso % (Auto) Lymph # (Auto) [place] # (Auto) Eos # (Auto) Baso # (Auto) Abs Immat Gran (auto) Absolute Neuts (auto) Absolute Nucleated RBC Nucleated RBC % (auto) Neutrophils % (Manual) Band Neutrophils % Monocytes % (Manual) Metamyelocytes % Abs Neuts (Manual) Monocytes # (Manual) Metamyelocytes # Nucleated RBCs Toxic Vacuolation Platelet Estimate Plt Morphology Comment RBC Morphology Polychromasia Hypochromasia Basophilic Stippling Macrocytosis Tear Drop Cells Ovalocytes VBG pH VBG pCO2 VBG Oxygen Liters/Min VBG pO2 VBG HCO3 VBG O2 Saturation VBG Base Excess Sodium Potassium Chloride Carbon Dioxide Anion Gap BUN Creatinine Estim Creat Clear Calc Estimated GFR POC Glucose 194 H Random Glucose Calcium Phosphorus Total Bilirubin AST ALT Alkaline Phosphatase Total Protein Albumin Random Vancomycin Tacrolimus Microbiology Microbiology Results: Microbiology 06/06/20 22:36 Blood - Venous Blood Culture - Final Staphylococcus auricularis 06/10/20 02:39 Sputum - Suctioned Gram Stain - Final 06/10/20 02:39 Sputum - Suctioned Sputum Culture - Final Haemophilus influenzae 06/06/20 22:36 Blood - Venous Blood Culture - Final Staphylococcus capitis 06/09/20 10:11 Blood - Venous Blood Culture - Preliminary Staphylococcus epidermidis 06/09/20 10:11 Blood - Venous Blood Culture - Final Staphylococcus epidermidis 06/09/20 14:46 Urine Catheterized - Porter Catheter Urine Culture - Final No growth. Progress Note: A&P Assessment and plan (1) Respiratory failure with hypoxia: Status: Acute Assessment and Plan: Assessment: 70-year-old gentleman with underlying diabetes mellitus and chronic kidney disease status post kidney transplant admitted with acute hypoxic respiratory failure secondary to COVID-19 ARDS eventually requiring intubation and ventilatory support Plan: Neuro: No acute issues. Cardiac: No acute issues. Pulmonary: COVID-19 related ARDS requiring ventilatory support. Continue to titrate off as tolerated. Continue with IV glucocorticoids. Renal: Chronic kidney disease status post kidney transplant. Nephrology service care appreciated. Volume overloaded, poor response to Bumex with Diuril. Plan for hemodialysis today. Continue to monitor tacrolimus level. Endo: No acute issues. Underlying diabetes mellitus. GI: No acute issues. ID: Subacute COVID-19. Heme/Onc: No acute issues. Psych: No acute issues. Miscellaneous: No acute issues. Prophylaxis: Lovenox, famotidine Diet: tube feeds Critical care time spent: 90 minutes (2) Acute respiratory distress syndrome (ARDS) due to COVID-19 virus: Status: Acute Time Spent With Patient Time: Total time spent is greater than 50% in coordination of care (as documented) at patient's floor/unit and/or counseling patient: Total time spent with greater than 50% in coordination of care (as documented) at patient's floor/unit and/or counseling patient:: 0 Critical Care Time Critical Care Time (minutes): 90
[2020-06-13 16:14] LABS: Glucose, Whole Blood 155 mg/dL (60-115)
[2020-06-13] MEDS: fentaNYL citrate/NS 1,000 MCG/100 ML PLAST..BAG 25 MCG IVCONT ×2 (17:23→21:03)
--- NOTE | 2020-06-13 19:53 | P.PNNP_ITS ---
Subjective Subjective Interval history: Seen and examiend. Ghazalaetns noted. Incr O2 requireents and no response to diuretics Physical Exam Vital Signs: Vital Signs: Last Vital Signs Temp 99.5 F 06/13/20 17:57 Pulse 94 06/13/20 19:00 Resp 32 H 06/13/20 19:00 BP 137/59 L 06/13/20 19:00 Pulse Ox 94 06/13/20 19:00 Body Mass Index 32.1 VITAL SIGNS: Reviewed. GENERAL: on vent HEAD: Normocephalic/atraumatic, EYES: LUNGS: decrease BS bilat CARDIOVASCULAR: Regular rate and rhythm without noted murmurs, ABDOMEN: Soft, non-tender, non-distended with bowel sounds. No rigidity. No guarding. No palpable masses or hernias noted MUSCULOSKELETAL: No tenderness, deformities, or effusions noted on gross inspection. EXTREMITIES: No cyanosis, clubbing or edema; LUE: AV fistula w bruit/thrill SKIN: Inspection of the skin reveals no rashes, ulcerations, jaundice, pallor, or petechiae. 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 water treatment operator) HENMT: Other: wearing a BiPAP mask Head: Yes normal to inspection Eyes: General: appearance normal, both eyes and all related structures EOM: EOMs intact bilaterally Neck: Neck: Yes normal visual inspection, Yes full ROM and Yes supple Resp: Effort & Inspection: normal respiratory effort (on Bipap) Auscultation: bronchovesicular breath sounds Cardio: Rate: regular rate Rhythm: regular rhythm Heart sounds: normal S1 and S2 GI: Inspection: Yes obesity Palpation (GI): nontender Auscultation: normal bowel sounds Skin: General skin exam: no rashes or lesions noted Neuro: General: patient oriented x3 Cognition (Neuro): normal cognition Extrem: Other: fistula on left arm General: Yes normal to inspection Assessment & Plan Assessment and plan (1) COVID-19 virus infection: Status: Acute (2) Respiratory failure with hypoxia: Status: Acute (3) Hypomagnesemia: Status: Acute (4) Hypertension: Status: Chronic (5) Diabetes mellitus type 2, with complication, on usp insulin pump: Status: Chronic (6) Acute hyperkalemia: Problem details: 6.0 mmol/L Status: Acute (7) PRICILLA (acute kidney injury): Status: Acute (8) Hyponatremia: Problem details: 126 mmol/L Status: Acute (9) Hypophosphatemia: Problem details: 2.0 Status: Acute Assessment and Plan: 1. Non-Oligric PRICILLA: SCr again incr; still most c/w multifact ATN from COVID assoc cyokine injury; renal hypoperfsuion and renal thrombosis all potential contributors; acute rejection seems unlikely as does Obs; Covid direct renal injury remains a consideration but unclear if covid is directly neohrotoxic Tac[place] level 10/10 9 2. CKD 3: bsl SCr 1.7 c/w DN and prior rejection of xplant kidey 3. Prog Resp failure: c/w COVID infection/inflamation/ARDS and ques of pulm edema based on echo with prog VOL OL and will therfore proceed with HD/UF and pull fluid 4. IS: normally maintained on tacro/cellcept: will hold cellcept given potential risk of over IS 5. HypoNa: resolved REC: HD/UF today cont to hold cellcept and r/s tacro 1mg bid and check level tomorrow am prior to am dose; goal for tacro level is 5-8 ( trough level); will check tacro tomorrow am before gviing am dose D/W Dr Reynaga and ICU and radiology manager Time Spent With Patient Time: Total time spent is greater than 50% in coordination of care (as documented) at patient's floor/unit and/or counseling patient:
[2020-06-13 23:01] LABS: Glucose, Whole Blood 167 mg/dL (60-115)
[2020-06-14] VITALS (17 sets, daily range): BP systolic 85–193; BP diastolic 42–76; PULSE 82–120; RESP 25–32; TEMP 37.6–38.2; O2SAT 86–96; BMI 33.3
[2020-06-14] MEDS: propofoL 1,000 MG/100 ML VIAL 24.6 MG IVCONT ×4 (00:10→12:22)
[2020-06-14] MEDS: fentaNYL citrate/NS 1,000 MCG/100 ML PLAST..BAG 20 MCG IVCONT ×3 (01:18→11:06)
[2020-06-14 06:07] LABS: Basophils Percent Auto 0.1 % (0-2); Eosinophils Percent Auto 0.1 % (0-4); Hematocrit 27.5 % (42-52); Hemoglobin 8.2 g/dl (14.0-18.0); Imm Gran Abs Auto 0.71 X10*3/uL (0.00-0.03); Imm Gran Pct Auto 3.9 % (0.0-0.4); Lymphocytes Absolute Auto 0.4 X10*3/uL (1.2-4.9); Lymphocytes Percent Auto 2.3 % (20-40); MANUAL DIFF FLAG SCAN; Mean Corpuscular HGB Conc 29.8 g/dl (31.0-36.0); Mean Corpuscular Hemoglobin 29.4 pg (27.0-33.0); Mean Corpuscular Volume 98.6 fL (80-98); Mean Platelet Volume 9.9 fL (9.4-12.4); Monocytes Absolute Auto 0.7 X10*3/uL (0.1-1.2); Monocytes Percent Auto 3.8 % (2-11); NRBC Pct Auto 0.4 /100WBC (0.0-0.2); Neutrophils Absolute Auto 16.3 X10*3/uL (2.0-8.3); Neutrophils Percent Auto 89.8 % (45-73); Platelet Count 192 X10*3/uL (160-400); Red Blood Count 2.79 X10*6/uL (4.60-5.80); Red Cell Distribution Width 14.3 % (11.0-16.0); SCAN SMEAR FLAG 1; White Blood Count 18.2 X10*3/uL (4.8-10.8)
[2020-06-14 06:31] LABS: SLIDE REVIEW VERIFIED
[2020-06-14 06:43] LABS: Base Excess VBG -0.4 mmol/L; HCO3 VBG 27 mmol/L; Oxygen Saturation VBG 77.5 %; PCO2 VBG 63 mmhg; PO2 VBG 46 mmhg; pH VBG 7.25 (7.32-7.43)
[2020-06-14 07:08] LABS: Anion Gap 19 (12-20); Blood Urea Nitrogen 71 mg/dL (9-16); Calcium 6.9 mg/dL (8.4-10.2); Carbon Dioxide 24 mmol/L (22-29); Chloride 100 mmol/L (96-108); Creatinine Clr Calc Pharmacy 21.8; Estimated Glomerular Filt Rate 18; Glucose Random 197 mg/dL (60-115); Magnesium 2.6 mg/dL (1.6-2.6); Phosphorus 6.5 mg/dL (2.7-4.5); Potassium 4.9 mmol/l (3.3-5.1); Sodium 138 mmol/L (135-145)
[2020-06-14 08:41] LABS: Glucose, Whole Blood 200 mg/dL (60-115)
[2020-06-14] MEDS: 0.9 % Sodium Chloride Flush 3 ML SYRINGE IVFLUSH (08:47)
[2020-06-14] MEDS: Chlorhexidine Gluc Oral Rinse 15 ML MOUTHWASH BUCCAL (08:48)
[2020-06-14] MEDS: methylPREDNISolone Sod Succ/PF 125 MG/2 ML VIAL 60 MG IVPUSH (08:51)
[2020-06-14] MEDS: Insulin Lispro 100 UNIT/ML 3 ML VIAL SUBCUT ×2 (08:52→11:17)
[2020-06-14] MEDS: Sennosides 8.6 MG TABLET 17.2 MG PO (08:53)
[2020-06-14] MEDS: Insulin Glargine,Hum.rec.anlog 100 UNIT/ML 10 ML VIAL 70 UNIT SUBCUT (08:53)
[2020-06-14] MEDS: Famotidine 20 MG TABLET 10 MG PO (08:54)
[2020-06-14] MEDS: Tacrolimus 1 MG CAPSULE PO (08:54)
--- NOTE | 2020-06-14 10:52 | P.PNCC_ITS ---
Subjective Subjective Date of Service: 06/14/20 Interval History: 70-year-old gentleman with underlying history of diabetes mellitus on insulin pump, hypertension, chronic kidney disease status post kidney transplant, hypertension, hyperlipidemia, hypogonadism admitted on 06/06/2020 with acute hypoxic respiratory failure secondary to COVID-19. Hospital course complicated by progressive hypoxemia requiring transfer to intensive care unit and intubation on 06/09/2020. No events overnight. Plateau pressures improved after dialysis.. Physical Exam Vital Signs: Vital Signs: Last Vital Signs Temp 100.8 F H 06/14/20 10:00 Pulse 82 06/14/20 10:00 Resp 30 H 06/14/20 10:00 BP 130/59 L 06/14/20 10:00 Pulse Ox 93 06/14/20 10:00 Body Mass Index 33.3 Const: General: no acute distress and other ( Sedated on the vent) Eyes: Sclerae: sclerae normal Neck: Neck: Yes no lymphadenopathy, Yes trachea midline and Yes supple Resp: Auscultation: crackles bilateral and diffuse Cardio: Rate: regular rate Rhythm: regular rhythm Heart sounds: no gallops, no murmurs and no rubs GI: Palpation (GI): Soft to palpation and Other GI palpation findings present ( Nontender) Auscultation: normal bowel sounds Extrem: General: No clubbing, No cyanosis and Yes edema (2+ bilateral) Objective Data Labs CBC & Chem 7: 06/14/20 05:39 06/14/20 05:39 Labs: Laboratory Results - last 24 hr 06/13/20 06/13/20 06/13/20 05:41 11:34 16:03 WBC RBC Hgb Hct MCV MCH MCHC RDW Plt Count MPV Immature Gran % (Auto) Neut % (Auto) Lymph % (Auto) [place] % (Auto) Eos % (Auto) Baso % (Auto) Lymph # (Auto) [place] # (Auto) Eos # (Auto) Baso # (Auto) Abs Immat Gran (auto) Absolute Neuts (auto) Absolute Nucleated RBC Nucleated RBC % (auto) Smear Tech's Comments Smear Path Review SEE NOTE VBG pH VBG pCO2 VBG Oxygen Liters/Min VBG pO2 VBG HCO3 VBG O2 Saturation VBG Base Excess Sodium Potassium Chloride Carbon Dioxide Anion Gap BUN Creatinine Estim Creat Clear Calc Estimated GFR POC Glucose 194 H 155 H Random Glucose Calcium Phosphorus Magnesium Albumin 06/13/20 06/14/20 06/14/20 21:26 05:39 05:39 WBC 18.2 H RBC 2.79 L Hgb 8.2 L Hct 27.5 L MCV 98.6 H MCH 29.4 MCHC 29.8 L RDW 14.3 Plt Count 192 MPV 9.9 Immature Gran % (Auto) 3.9 H Neut % (Auto) 89.8 H Lymph % (Auto) 2.3 L [place] % (Auto) 3.8 Eos % (Auto) 0.1 Baso % (Auto) 0.1 Lymph # (Auto) 0.4 L [place] # (Auto) 0.7 Eos # (Auto) 0.0 Baso # (Auto) 0.0 Abs Immat Gran (auto) 0.71 H Absolute Neuts (auto) 16.3 H Absolute Nucleated RBC 0.070 H Nucleated RBC % (auto) 0.4 H Smear Tech's Comments VERIFIED Smear Path Review VBG pH VBG pCO2 VBG Oxygen Liters/Min VBG pO2 VBG HCO3 VBG O2 Saturation VBG Base Excess Sodium 138 Potassium 4.9 Chloride 100 Carbon Dioxide 24 Anion Gap 19 BUN 71 H Creatinine 3.35 H Estim Creat Clear Calc 21.8 Estimated GFR 18 POC Glucose 167 H Random Glucose 197 H Calcium 6.9 L Phosphorus 6.5 H Magnesium 2.6 Albumin 3.0 L 06/14/20 06/14/20 05:39 07:59 WBC RBC Hgb Hct MCV MCH MCHC RDW Plt Count MPV Immature Gran % (Auto) Neut % (Auto) Lymph % (Auto) [place] % (Auto) Eos % (Auto) Baso % (Auto) Lymph # (Auto) [place] # (Auto) Eos # (Auto) Baso # (Auto) Abs Immat Gran (auto) Absolute Neuts (auto) Absolute Nucleated RBC Nucleated RBC % (auto) Smear Tech's Comments Smear Path Review VBG pH 7.25 L VBG pCO2 63 VBG Oxygen Liters/Min Not Reportable VBG pO2 46 VBG HCO3 27 VBG O2 Saturation 77.5 VBG Base Excess -0.4 Sodium Potassium Chloride Carbon Dioxide Anion Gap BUN Creatinine Estim Creat Clear Calc Estimated GFR POC Glucose 200 H Random Glucose Calcium Phosphorus Magnesium Albumin Microbiology Microbiology Results: Microbiology 06/06/20 22:36 Blood - Venous Blood Culture - Final Staphylococcus auricularis 06/10/20 02:39 Sputum - Suctioned Gram Stain - Final 06/10/20 02:39 Sputum - Suctioned Sputum Culture - Final Haemophilus influenzae 06/06/20 22:36 Blood - Venous Blood Culture - Final Staphylococcus capitis 06/09/20 10:11 Blood - Venous Blood Culture - Preliminary Staphylococcus epidermidis 06/09/20 10:11 Blood - Venous Blood Culture - Final Staphylococcus epidermidis 06/09/20 14:46 Urine Catheterized - Porter Catheter Urine Culture - Final No growth. Progress Note: A&P Assessment and plan (1) Acute respiratory distress syndrome (ARDS) due to COVID-19 virus: Status: Acute Assessment and Plan: Assessment: 70-year-old gentleman with underlying diabetes mellitus and chronic kidney disease status post kidney transplant admitted with acute hypoxic respiratory failure secondary to COVID-19 ARDS eventually requiring intubation and ventilatory support Plan: Neuro: No acute issues. Cardiac: No acute issues. Pulmonary: COVID-19 related ARDS requiring ventilatory support. Continue to titrate off as tolerated. Continue with IV glucocorticoids. Renal: Chronic kidney disease status post kidney transplant. Nephrology serv ice care appreciated. Volume overload, improved with hemodialysis. Continue to monitor tacrolimus level. Endo: No acute issues. Underlying diabetes mellitus. GI: No acute issues. ID: Subacute COVID-19. Heme/Onc: No acute issues. Psych: No acute issues. Miscellaneous: No acute issues. Prophylaxis: Lovenox, famotidine Diet: tube feeds Critical care time spent: 60 minutes (2) Respiratory failure with hypoxia: Status: Acute (3) CKD stage 3 due to type 2 diabetes mellitus: Status: Chronic Time Spent With Patient Time: Total time spent is greater than 50% in coordination of care (as documented) at patient's floor/unit and/or counseling patient: Total time spent with greater than 50% in coordination of care (as documented) at patient's floor/unit and/or counseling patient:: 0 Critical Care Time Critical Care Time (minutes): 60
--- NOTE | 2020-06-14 10:56 | P.PNNP_ITS ---
Subjective Subjective Interval history: Seen and examiend. Evetns noted.HD/UF yesterday 2.5 L removed Physical Exam Vital Signs: Vital Signs: Last Vital Signs Temp 100.8 F H 06/14/20 10:00 Pulse 82 06/14/20 10:00 Resp 30 H 06/14/20 10:00 BP 130/59 L 06/14/20 10:00 Pulse Ox 93 06/14/20 10:00 Body Mass Index 33.3 VITAL SIGNS: Reviewed. GENERAL: on vent HEAD: Normocephalic/atraumatic, EYES: LUNGS: decrease BS bilat CARDIOVASCULAR: Regular rate and rhythm without noted murmurs, ABDOMEN: Soft, non-tender, non-distended with bowel sounds. No rigidity. No guarding. No palpable masses or hernias noted MUSCULOSKELETAL: No tenderness, deformities, or effusions noted on gross inspection. EXTREMITIES: No cyanosis, clubbing or edema; LUE: AV fistula w bruit/thrill SKIN: Inspection of the skin reveals no rashes, ulcerations, jaundice, pallor, or petechiae. NEUROLOGIC: 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 Italian, used child protective services social worker) HENMT: Other: wearing a BiPAP mask Head: Yes normal to inspection Eyes: General: appearance normal, both eyes and all related structures EOM: EOMs intact bilaterally Neck: Neck: Yes normal visual inspection, Yes full ROM and Yes supple Resp: Effort & Inspection: normal respiratory effort (on Bipap) Auscultation: bronchovesicular breath sounds Cardio: Rate: regular rate Rhythm: regular rhythm Heart sounds: normal S1 and S2 GI: Inspection: Yes obesity Palpation (GI): nontender Auscultation: normal bowel sounds Skin: General skin exam: no rashes or lesions noted Neuro: General: patient oriented x3 Cognition (Neuro): normal cognition Extrem: Other: fistula on left arm General: Yes normal to inspection Assessment & Plan Assessment and plan (1) COVID-19 virus infection: Status: Acute (2) Respiratory failure with hypoxia: Status: Acute (3) Hypomagnesemia: Status: Acute (4) Hypertension: Status: Chronic (5) Diabetes mellitus type 2, with complication, on care home insulin pump: Status: Chronic (6) Acute hyperkalemia: Problem details: 6.0 mmol/L Status: Acute (7) PRICILLA (acute kidney injury): Status: Acute (8) Hyponatremia: Problem details: 126 mmol/L Status: Acute (9) Hypophosphatemia: Problem details: 2.0 Status: Acute Assessment and Plan: 1. Non-Oligric PRICILLA: SCr again incr; still most c/w multifact ATN from COVID assoc cyokine injury; renal hypoperfsuion and renal thrombosis all potential contributors; acute rejection seems unlikely as does Obs; Covid direct renal injury remains a consideration but unclear if covid is directly neohrotoxic Tacro level pendiing 2. CKD 3: bsl SCr 1.7 c/w DN and prior rejection of xplant kidey 3. Prog Resp failure: c/w COVID infection/inflamation/ARDS and ques of pulm edema based on echo with prog VOL OL and will therfore proceed with HD/UF and pull fluid 4. IS: normally maintained on tacro/cellcept: will hold cellcept given potential risk of over IS 5. HypoNa: resolved REC: HD/UF yesterday cont to hold cellcept and r/s tacro 1mg bid and check levelfrom this am then reassess pm dose; goal for tacro level is 5-8 ( trough level); will check tacro tomorrow am before gviing am dose possible HD again tomorrow D/W Dr Reynaga and ICU and conference organizer Time Spent With Patient Time: Total time spent is greater than 50% in coordination of care (as documented) at patient's floor/unit and/or counseling patient: Procedures Abscess I/D Date of Service: 06/14/20
[2020-06-14] MEDS: Enoxaparin Sodium 30 MG/0.3 ML SYRINGE SUBCUT (11:06)
[2020-06-14 11:26] LABS: Glucose, Whole Blood 190 mg/dL (60-115)
[2020-06-14] MEDS: Cisatracurium Besylate 20 MG/10 ML VIAL 10 MG IVPUSH (14:25)
--- NOTE | 2020-06-14 15:25 | PM.CCN ---
Critical Care Event Note Summary Code activated: Yes Narrative: At approximately 2:10 p.m. patient with sudden changes in cardiac rhythm and refractory desaturations progressing to initially V-tach, then PEA cardiac arrest. CPR started immediately and return of spontaneous circulation achieved 3 times over the next hour with rapid deterioration back to cardiopulmonary arrest state refractory to further CPR attempts. Total code time of 111 minutes. Patient pronounced 3:21p.m. Family notified. Additional 120 minutes of critical care time Critical Care Time (minutes): 120
--- NOTE | 2020-06-14 16:05 | PC.NURSE ---
Around 14:00 patient suddenly desatted, o2 increased to 100%. Patient lavaged and manually ventilated without changes. MD at bedside. Patient given 10mg Nimbex IVP in attempt to oxygenate and better ventilated. No changes in patient condition. Patient's designated family member, Jason Rendon called and notified of change of patient condition. He stated he contact the rest of the family and call the ICU back. Jason notified that the patient's condition was dire. At 14:42 patient rony down and had no pulse. See code sheet for more information. MD called time of 15:21. MD contacted family. Organ bank notified , declined case. [place] [facility] [place]
--- NOTE | 2020-06-14 17:01 | P.DN_ITS ---
Discharge Sum: Prov Provider Primary care physician: Unknown Physician Consults: 06/07/20 07:01 Consult to Nephrology Stat Consulting Provider: Eduin Wheatley Reason for consultation: renal transplant with covid, pls call provider arnold Discharge Sum: Diag Contributing Factors (1) Acute respiratory distress syndrome (ARDS) due to COVID-19 virus: (2) Respiratory failure with hypoxia: (3) CKD stage 3 due to type 2 diabetes mellitus: Discharge Sum: Summary Date and Time Date of admission: 06/06/20 22:56 Date of : 06/14/20 Time of : 15:21 Summary Details: 70-year-old gentleman with underlying history of diabetes mellitus on insulin pump, hypertension, chronic kidney disease status post kidney transplant, hyperlipidemia, hypogonadism admitted on 06/06/2020 with acute hypoxic respiratory failure secondary to COVID-19 ARDS. Patient has been treated with systemic glucocorticoids. Unfortunately his FiO2 requirements continued to increase and he required transfer to intensive care unit and intubation on 06/09/2020. Hospital course was further complicated by progressive renal failure requiring initiation of hemodialysis for volume overload and hyperkalemia. He continued to require increasing ventilatory support. On 06/14/2020 patient had an abrupt change in his cardiac treatment, likely secondary to an acute SD, with refractory desaturations progressing initially to V-tach, then PEA cardiac arrest. CPR was started immediately and return of spontaneous circulation achieved 3 times over the next hour with rapid deterioration back to cardiopulmonary arrest that eventually became refractory to for the CPR attempts. Patient was coded for total of 111 minutes. He was pronounced at 3:21 p.m. on 06/14/2020. Family was notified. Discharge diagnoses: 1. COVID-19 related ARDS 2. COVID-19 related viral sepsis 3. Acute myocardial infarction 4. Acute hypoxic respiratory failure 5. Acute renal failure 6. Hyperkalemia 7. Diabetes mellitus 8. Obesity 9. Status post renal transplant 10. Hypertension Additional Data Confirmation of as documented by pronouncing clinician: no pulse, no respirations, no heart sounds and pupils fixed and dilated Attending physician: Kuldeep Reynaga MD Was code activated?: Yes Autopsy requested?: No disability insurance claim examiner notified?: No Organ bank notified?: Yes Hospice patient?: No
== END 2020-06-14 16:00 | disposition expired | DRG 870 ==
LOC: HO.ED 23:17 → HO.ICU 23:26
PROVIDERS: Internal Medicine Nephrology; Physician Assistant; Physician Assistant Medical; Admitting Provider Anesthesiology; Emergency Provider Student in an Organized Health Care Education/Training Program; Visit Provider Internal Medicine Pulmonary Disease
DX: A41.89 Other specified sepsis (principal); U07.1 COVID-19; J80 Acute respiratory distress syndrome; J12.89 Other viral pneumonia; N17.0 Acute kidney failure with tubular necrosis; I12.9 Hypertensive chronic kidney disease with stage 1 through stage 4 chronic kidney disease, or unspecified chronic kidney disease; E11.22 Type 2 diabetes mellitus with diabetic chronic kidney disease; N18.30 Chronic kidney disease, stage 3 unspecified; E11.42 Type 2 diabetes mellitus with diabetic polyneuropathy; E29.1 Testicular hypofunction; M81.0 Age-related osteoporosis without current pathological fracture; E66.9 Obesity, unspecified; E11.65 Type 2 diabetes mellitus with hyperglycemia; R41.0 Disorientation, unspecified; Z96.41 Presence of insulin pump (external) (internal); Z68.33 Body mass index [BMI] 33.0-33.9, adult; Z79.4 Long term (current) use of insulin; Z79.82 Long term (current) use of aspirin; Z79.890 Hormone replacement therapy; Z79.891 Long term (current) use of opiate analgesic; Z79.899 Other long term (current) drug therapy
CPT/HCPCS: 36415; 70120; 71045; 80048; 80053; 80197; 80202; 81001; 82040; 82310; 82728; 82803; 82947; 83605; 83615; 83735; 83880; 84100; 84145; 84300; 84484; 85007; 85025; 85027; 85060; 85379; 85610; 85730; 86140; 86769; 87040; 87070; 87077; 87086; 87147; 87185; 87186; 87205; 90999; 93005; 94002; 94003; 94640; 94660; 96365; 96375; 99285; C1758; J0171; J1170; J1200; J1205; J1650; J2060; J2543; J2920; J2930; J3010; J3370; J3411; J3475; P9047